=== PATIENT | male | born 1965 | race Caucasian/White ===

== ENCOUNTER 2017-06-24 16:05 | Outpatient (RCR) | payer BC, SELFPAY ==
[2017-06-18 09:55] LABS: International Normalized Ratio 1.9; Prothrombin Time (Protime)PT. 21.1 SECONDS (11.7-14.9)
[2017-06-24 16:29] LABS: International Normalized Ratio 2.3; Prothrombin Time (Protime)PT. 24.6 SECONDS (11.7-14.9)
== END 2017-06-24 16:20 | disposition home or self-care (01) ==
LOC: LAB 16:05
PROVIDERS: Family Provider Family Medicine; PCP Family Medicine; Visit Provider Internal Medicine Cardiovascular Disease
DX: Z79.01 Long term (current) use of anticoagulants (principal); Z95.2 Presence of prosthetic heart valve
CPT/HCPCS: 36415; 85610

== ENCOUNTER 2017-08-10 16:27 | Outpatient (RCR) | payer BC, SELFPAY ==
[2017-07-23 08:16] LABS: Absolute Neutrophil Count 2.6 X10^3/uL (2.0-7.7); Basophil# 0.13 X10^3/uL; Basophil% 2.7 % (0-1); Differential Indicated SCAN CRITERIA MET; Eosinophil# 0.35 X10^3/uL; Eosinophils% 7.2 % (0-5); Hemoglobin 15.6 g/dl (13.0-16.5); Lymphocyte % 18.5 % (19-41); Mean Corp Hgb Conc 32.5 g/gl (32-36); Mean Corpuscular Hgb 26.5 pg (27.0-32.0); Mean Corpuscular Volume 81.5 fL (80-94); Mean Platelet Vol. 10.4 fl (6.2-12.0); Monocyte# 0.85 X10^3/uL; Monocyte% 17.5 % (0-10); Neutrophil # 2.63 X10^3/uL (2.7-7.7); Neutrophil % 53.9 % (47-70); POSITIVE COUNT NO; POSITIVE DIFFERENTIAL NO; POSITIVE MORPHOLOGY YES; Platelet Count 272 K/mm3 (150-450); RBC Distribution Width CV 20.2 % (11.6-14.6); RBC Distribution Width SD 58.2 fl (35.1-43.9); Red Blood Count 5.89 M/mm3 (4.6-6.2); White Blood Count 4.9 K/mm3 (4.4-11.0)
[2017-07-23 08:26] LABS: International Normalized Ratio 3.9; Prothrombin Time (Protime)PT. 36.4 SECONDS (11.7-14.9)
[2017-07-23 08:48] LABS: AST(SGOT) 28 U/L (15-37); Alanine Aminotransfer ALT/SGPT 24 U/L (16-61); Albumin, Serum 3.6 g/dL (3.2-5.0); Alkaline Phosphatase 70 U/L (45-117); Anion Gap 5 (5-15); BUN 11 mg/dL (7-18); BUN/Creat Ratio 8.2 RATIO (10-20); Calcium,Total 8.4 mg/dL (8.5-10.1); Chloride 105 mmol/L (98-107); Cholesterol 98 mg/dL (200); Creatinine, Serum 1.34 mg/dL (0.70-1.30); EST Glomerular Filtration Rate 59 mL/min (>60); Est Glom Filt Rate - Afr Amer 72 mL/min (>60); Globulin 3.7 g/dL (2.2-4.2); Glucose 73 mg/dL (74-106); High Density Lipoprotein 28 mg/dL; Protein, Total 7.3 g/dL (6.4-8.2); Sodium Level 139 mmol/L (136-145); T4 Free Direct 0.77 ng/dL (0.76-1.46); Thyroid Stim Hormone (TSH) 6.73 uIU/mL (0.358-3.74); Triglycerides 70 mg/dL; Very Low Density Lipoprotein 14 mg/dL (5-40)
[2017-07-30 10:42] LABS: Prothrombin Time (Protime)PT. 62.7 SECONDS (11.7-14.9)
[2017-07-30 11:06] LABS: International Normalized Ratio 7.8
[2017-08-05 17:34] LABS: Prothrombin Time (Protime)PT. 40.4 SECONDS (11.7-14.9)
[2017-08-05 18:03] LABS: International Normalized Ratio 4.4
[2017-08-10 17:32] LABS: Prothrombin Time (Protime)PT. 42.2 SECONDS (11.7-14.9)
[2017-08-10 17:41] LABS: International Normalized Ratio 4.4
== END 2017-08-10 17:00 | disposition home or self-care (01) ==
LOC: LAB 16:27
PROVIDERS: Family Provider Family Medicine; PCP Family Medicine; Visit Provider Internal Medicine Cardiovascular Disease
DX: I35.9 Nonrheumatic aortic valve disorder, unspecified (principal); N18.1 Chronic kidney disease, stage 1; E03.9 Hypothyroidism, unspecified; Z95.2 Presence of prosthetic heart valve; Z79.01 Long term (current) use of anticoagulants
CPT/HCPCS: 36415; 85610

== ENCOUNTER 2017-08-29 16:16 | Outpatient (RCR) | payer BC, SELFPAY ==
[2017-08-19 17:00] LABS: Prothrombin Time (Protime)PT. 52.7 SECONDS (11.7-14.9)
[2017-08-19 17:09] LABS: International Normalized Ratio 5.8
[2017-08-22 17:55] LABS: International Normalized Ratio 2.3; Prothrombin Time (Protime)PT. 25.2 SECONDS (11.7-14.9)
[2017-08-29 17:33] LABS: International Normalized Ratio 1.6; Prothrombin Time (Protime)PT. 19.5 SECONDS (11.7-14.9)
== END 2017-08-29 17:00 | disposition home or self-care (01) ==
LOC: LAB 16:16
PROVIDERS: Family Provider Family Medicine; PCP Family Medicine; Visit Provider Internal Medicine Cardiovascular Disease
DX: Z95.2 Presence of prosthetic heart valve (principal); Z79.01 Long term (current) use of anticoagulants
CPT/HCPCS: 36415; 85610

== ENCOUNTER → 2017-10-08 07:49 | Outpatient (CLI) | payer BC, SELFPAY ==
[2017-10-08 09:01] LABS: Prothrombin Time (Protime)PT. 31.1 SECONDS (11.7-14.9)
[2017-10-08 09:25] LABS: T4 Free Direct 0.69 ng/dL (0.76-1.46); Thyroid Stim Hormone (TSH) 4.49 uIU/mL (0.358-3.74)
== END ==
PROVIDERS: Family Provider Family Medicine; PCP Family Medicine; Visit Provider Family Medicine
DX: E03.9 Hypothyroidism, unspecified (principal)
CPT/HCPCS: 36415; 84439; 84443; 85610

== ENCOUNTER 2017-11-29 16:40 | Outpatient (RCR) | payer BC, SELFPAY ==
[2017-11-26 11:16] LABS: International Normalized Ratio 4.1; Prothrombin Time (Protime)PT. 39.8 SECONDS (11.7-14.9)
[2017-11-26 11:40] LABS: T4 Free Direct 0.78 ng/dL (0.76-1.46); Thyroid Stim Hormone (TSH) 3.88 uIU/mL (0.358-3.74)
[2017-11-29 17:15] LABS: Prothrombin Time (Protime)PT. 30.9 SECONDS (11.7-14.9)
== END 2017-11-29 17:00 | disposition home or self-care (01) ==
LOC: LAB 16:40
PROVIDERS: Family Provider Family Medicine; PCP Family Medicine; Visit Provider Internal Medicine Cardiovascular Disease
DX: I35.9 Nonrheumatic aortic valve disorder, unspecified (principal); E03.9 Hypothyroidism, unspecified; Z79.01 Long term (current) use of anticoagulants
CPT/HCPCS: 36415; 84439; 84443; 85610

== ENCOUNTER 2018-02-10 16:37 | Outpatient (RCR) | payer BC, SELFPAY ==
[2018-02-10 17:45] LABS: International Normalized Ratio 3.2; Prothrombin Time (Protime)PT. 32.8 SECONDS (11.7-14.9)
== END 2018-02-10 17:00 | disposition home or self-care (01) ==
LOC: LAB 16:37
PROVIDERS: Family Provider Family Medicine; PCP Family Medicine; Visit Provider Internal Medicine Cardiovascular Disease
DX: Z79.01 Long term (current) use of anticoagulants (principal)
CPT/HCPCS: 36415; 85610

== ENCOUNTER 2018-04-08 08:38 | Outpatient (RCR) | payer BC, SELFPAY ==
[2018-04-08 10:00] LABS: International Normalized Ratio 2.3; Prothrombin Time (Protime)PT. 25.3 SECONDS (11.7-14.9)
== END 2018-04-08 10:00 | disposition home or self-care (01) ==
LOC: LAB 08:38
PROVIDERS: Family Provider Family Medicine; PCP Family Medicine; Visit Provider Internal Medicine Cardiovascular Disease
DX: Z95.4 Presence of other heart-valve replacement (principal)
CPT/HCPCS: 36415; 85610

== ENCOUNTER → 2018-06-24 09:18 | Outpatient (CLI) | payer BC, SELFPAY ==
[2018-06-24 10:54] LABS: Absolute Lymphocyte Count 0.66 X10^3/ul (0.83-4.51); Absolute Neutrophil Count 3.9 X10^3/uL (2.0-7.7); Basophil# 0.02 X10^3/uL; Basophil% 0.3 % (0-1); Eosinophil# 0.31 X10^3/uL; Eosinophils% 5.1 % (0-5); Hematocrit 51.5 % (40-54); Hemoglobin 16.2 g/dl (13.0-16.5); Lymphocyte # 0.66 X10^3/ul (4.0); Lymphocyte % 10.8 % (19-41); Mean Corp Hgb Conc 31.5 g/gl (32-36); Mean Corpuscular Hgb 28.7 pg (27.0-32.0); Mean Corpuscular Volume 91.3 fL (80-94); Mean Platelet Vol. 10.4 fl (6.2-12.0); Monocyte# 1.22 X10^3/uL; Neutrophil # 3.87 X10^3/uL (2.7-7.7); Neutrophil % 63.6 % (47-70); Platelet Count 317 K/mm3 (150-450); RBC Distribution Width CV 19.1 % (11.6-14.6); RBC Distribution Width SD 64.2 fl (35.1-43.9); Red Blood Count 5.64 M/mm3 (4.6-6.2); White Blood Count 6.1 K/mm3 (4.4-11.0)
[2018-06-24 11:00] LABS: POSITIVE COUNT NO; POSITIVE DIFFERENTIAL NO; POSITIVE MORPHOLOGY NO
[2018-06-24 11:05] LABS: International Normalized Ratio 3.9; Prothrombin Time (Protime)PT. 38.6 SECONDS (11.7-14.9)
[2018-06-24 11:11] LABS: Microalbumin:Creatinine Ratio 14.5 mg/g CRE (<30 mg/g CRE)
[2018-06-24 11:28] LABS: AST(SGOT) 35 U/L (15-37); Alanine Aminotransfer ALT/SGPT 35 U/L (16-61); Albumin, Serum 3.5 g/dL (3.2-5.0); Alkaline Phosphatase 48 U/L (45-117); Anion Gap 4 (5-15); BUN 15 mg/dL (7-18); BUN/Creat Ratio 9.3 RATIO (10-20); Bilirubin, Direct 0.32 mg/dL (0.00-0.30); Calcium,Total 8.8 mg/dL (8.5-10.1); Chloride 104 mmol/L (98-107); Cholesterol 87 mg/dL (200); Creatinine, Serum 1.61 mg/dL (0.70-1.30); EST Glomerular Filtration Rate 48 mL/min (>60); Est Glom Filt Rate - Afr Amer 58 mL/min (>60); Globulin 3.6 g/dL (2.2-4.2); Glucose 78 mg/dL (74-106); High Density Lipoprotein 35 mg/dL; Magnesium 2.1 mg/dL (1.6-2.6); Potassium 5.5 mmol/L (3.5-5.1); Protein, Total 7.1 g/dL (6.4-8.2); Sodium Level 139 mmol/L (136-145); Thyroid Stim Hormone (TSH) 4.51 uIU/mL (0.358-3.74); Triglycerides 47 mg/dL; Very Low Density Lipoprotein 9 mg/dL (5-40)
[2018-06-24 13:20] LABS: Vitamin D,25 Hydroxy 29.7 ng/mL (29.95-100.01)
== END ==
PROVIDERS: Family Provider Family Medicine; PCP Family Medicine; Referring Provider Family Medicine; Visit Provider Family Medicine
DX: D75.1 Secondary polycythemia (principal); I35.9 Nonrheumatic aortic valve disorder, unspecified; N18.1 Chronic kidney disease, stage 1; E03.9 Hypothyroidism, unspecified; Z79.01 Long term (current) use of anticoagulants
CPT/HCPCS: 36415; 80053; 80061; 82043; 82248; 82306; 82570; 83735; 84443; 85025; 85610

== ENCOUNTER 2018-07-01 09:34 | Outpatient (RCR) | payer BC, SELFPAY ==
[2018-06-16 17:47] LABS: International Normalized Ratio 2.7; Prothrombin Time (Protime)PT. 29.2 SECONDS (11.7-14.9)
[2018-07-01 10:31] LABS: Prothrombin Time (Protime)PT. 44.5 SECONDS (11.7-14.9)
[2018-07-01 10:41] LABS: International Normalized Ratio 4.7
[2018-07-01 10:42] LABS: Anion Gap 3 (5-15); BUN 16 mg/dL (7-18); BUN/Creat Ratio 9.5 RATIO (10-20); Calcium,Total 8.6 mg/dL (8.5-10.1); Chloride 103 mmol/L (98-107); Creatinine, Serum 1.69 mg/dL (0.70-1.30); EST Glomerular Filtration Rate 45 mL/min (>60); Est Glom Filt Rate - Afr Amer 55 mL/min (>60); Glucose 82 mg/dL (74-106); Potassium 5.5 mmol/L (3.5-5.1); Sodium Level 136 mmol/L (136-145)
== END 2018-07-01 10:34 | disposition home or self-care (01) ==
LOC: LAB 09:34
PROVIDERS: Family Provider Family Medicine; PCP Family Medicine; Referring Provider Internal Medicine Cardiovascular Disease; Visit Provider Internal Medicine Cardiovascular Disease
DX: Z95.2 Presence of prosthetic heart valve (principal); Z79.01 Long term (current) use of anticoagulants
CPT/HCPCS: 36415; 80048; 85610

== ENCOUNTER → 2018-07-12 07:28 | Outpatient (CLI) | payer BC, SELFPAY ==
--- NOTE | 2018-07-12 07:33 | RDU_ITS ---
Reason For Study: CKD 2 Right Renal Artery Left Renal Artery Right renal artery ostium Left renal artery ostium 101.0/29.2 109.0/21.9 RSV/EDV. PSV/EDV. Right renal artery proximal Left renal artery proximal PSV/EDV 97.6/25.5 PSV/EDV. 106.0/36.5 . Right renal artery mid 111.0/41.0 Left renal artery mid 108.0/35.9 PSV/EDV. PSV/EDV . Right renal artery distal 84.9/26.9 Left renal artery distal 87.4/30.6 PSV/EDV. PSV/EDV. Right Renal Parenchyma Left Renal Parenchyma Upper Pole Medula 23.7/9.3 PSV/EDV. Left upper pole medulla 24.4/10.7 Right upper pole medulla EDR .39 . PSV/EDV . Right upper pole medulla R.I. .61 . Left upper pole medulla EDR .44 . Upper Christos Cortx 16.5/5.7 PSV/EDV. Left upper pole medulla R.I. .56 . Right upper pole cortex EDR .35 . UP Cortex 18.6/7.3 PSV/EDV. Right upper pole cortex R.I. .65 . Left upper pole cortex EDR .39 . Right lower Pole medulla 23.5/8.5 Left upper pole cortex R.I. .61 . PSV/EDV . Left lower Pole medulla 23.2/9.8 Right lower pole medulla EDR .36 . PSV/EDV . Right lower pole medulla R.I. .64 . Left lower pole medulla EDR .42 . Lower Pole Cortex 14.8/5.9 PSV/EDV. Left lower pole medulla R.I. .58 . Right lower pole cortex EDR .40 . Lower Pole Cortx 18.6/7.6 PSV/EDV. Right lower pole cortex R.I. .60 . Left lower pole cortex EDR .41 . Right Renal Hilar Left lower pole cortex R.I. .59 . Right Hilar avg 33.9/14.1 PSV/EDV. Left Renal Hilar Right hilar acceleration time 66 LT Hilar avg 33.0/14.4 PSV/EDV . m/sec. Left hilar acceleration time 66 Right Renal Dimensions m/sec. Right kidney size 10.5 cm . Left Renal Dimensions Right cortical dimension 1.5 cm . Left kidney size 10.6 cm . Left cortical dimension 1.5 cm . Aorta Proximal abdominal aorta 1.6 x 1.6 cm . Distal abdominal aorta 1.7 x 1.8 cm . Proximal abdominal aorta peak systolic velocity is 101.0 cm/sec . Distal abdominal aorta peak systolic velocity is 82.1 cm/sec . Interpretation Summary Dimensions of the intra-abdominal aorta appear normal, without evidence of aneurysmal dilatation. Renal artery velocities are bilaterally normal. Acceleration times are normal bilaterally. There is no evidence of hemodynamically significant renal artery stenosis on either side. Renovascular resistance appears to be bilaterally normal . Cortical dimensions are bilaterally normal. Kidneys appear normal in size bilaterally. Ordering Physician: Walter Rodarte Referring Physician: Walter Rodarte Performed By: Jenae Johnson RVT
== END ==
PROVIDERS: Family Provider Family Medicine; PCP Family Medicine; Referring Provider Family Medicine; Visit Provider Family Medicine
DX: N18.2 Chronic kidney disease, stage 2 (mild) (principal)
CPT/HCPCS: 93975

== ENCOUNTER → 2018-07-25 10:58 | Outpatient (CLI) | payer BC, SELFPAY ==
--- NOTE | 2018-07-25 11:01 | ECHOD_ITS ---
Reason For Study: AVR Procedure This was a 2D Doppler, Color Flow transthoracic echocardiogram. Exam performed in department. Left Ventricle Normal LV size. Mild concentric left ventricular hypertrophy. Apical false tendon noted. Left ventricular systolic function is normal. The estimated ejection fraction is 55 %. No evidence for diastolic dysfunction. Apical wall motion abnormality may reflect pacemaker activation. Right Ventricle Normal RV size. ICD or pacer leads identified within the right ventricle. Normal systolic function. Atria Normal left atrium. Normal right atrium. ICD or pacer leads identified within the right atrium. No doppler evidence for ASD. Mitral Valve There is no mitral annular calcification. Normal mitral valve. Mild (1+) mitral valve insufficiency. Tricuspid Valve Normal tricuspid valve. Mild tricuspid valve insufficiency. Right ventricular systolic pressure estimated to be 25 mmHg. Aortic Valve Stable appearing mechanical aortic valve apparatus. Trivial transvalvular insufficiency of the aortic valve. Pulmonic Valve Normal pulmonic valve. Trivial pulmonic valve insufficiency. Great Vessels Aortic root repair. Pericardium/Pleural No pericardial effusion. MMode/2D Measurements & Calculations LVIDd: 5.0 cm IVSd: 1.2 cm LVOT diam: 2.2 cm LVIDs: 3.8 cm LVPWd: 1.4 cm LVOT area: 3.9 cm2 FS: 22.4 % Ao root diam: 3.0 cm LAV(MOD-bp): 64.2 ml LVAd ap4: 49.5 cm2 LAV(MOD-bp) Indexed: 30.5 ml/m2 EDV(MOD-sp4): 194.9 ml LAV(MOD-sp2): 59.0 ml EDV(sp4-el): 200.3 ml LAV(MOD-sp4): 67.8 ml LVAs ap4: 32.8 cm2 ESV(MOD-sp4): 93.7 ml ESV(sp4-el): 95.6 ml EF(MOD-sp4): 51.9 % EF(sp4-el): 52.3 % SV(MOD-sp4): 101.2 ml SV(sp4-el): 104.7 ml LA A4 area: 21.5 cm2 LA dimension(2D): 3.5 cm RA A4 area: 18.0 cm2 Time Measurements MV dec time: 0.20 sec Doppler Measurements & Calculations MV E max reji: 61.2 cm/sec Lat Peak E' Reji: 4.9 cm/sec Med Peak E' Reji: 5.0 cm/sec MV A max reji: 53.8 cm/sec E/E' lat: 12.5 E/E' med: 12.3 MV E/A: 1.1 Ao V2 max: 196.1 cm/sec LV V1 max: 75.0 cm/sec SV(LVOT): 51.2 ml Ao max P.4 mmHg LV V1 max P.3 mmHg Ao V2 mean: 152.8 cm/sec LV V1 mean P.4 mmHg Ao mean P.0 mmHg LV V1 mean: 54.7 cm/sec Ao V2 VTI: 33.7 cm LV V1 VTI: 13.3 cm SADE(I,D): 1.5 cm2 SADE(V,D): 1.5 cm2 PA V2 max: 112.5 cm/sec PI end-d reji: 81.1 cm/sec TR max reji: 232.9 cm/sec TR max P.7 mmHg Interpretation Summary Left ventricular systolic function is normal. The estimated ejection fraction is 55 %. Mild concentric left ventricular hypertrophy. Apical wall motion abnormality may reflect pacemaker activation. Apical false tendon noted. Mild (1+) mitral valve insufficiency. Mild tricuspid valve insufficiency. Stable appearing mechanical aortic valve apparatus. Trivial transvalvular insufficiency of the aortic valve. Trivial pulmonic valve insufficiency. Aortic root repair. The ascending aorta is not well visualized. Right ventricular systolic pressure estimated to be 25 mmHg. No evidence for diastolic dysfunction. ICD or pacer leads identified within the right atrium ICD or pacer leads identified within the right ventricle. Ordering Physician: Lorenzo Abad/Erik Patricia Referring Physician: RONI FREED Performed By: Sulma Jimenez, RDCS, RVT
--- NOTE | 2018-07-25 11:53 | US_ITS ---
STUDY: RENAL ULTRASOUND - COMPLETE REASON FOR EXAM: Male, 53 years old. Microscopic hematuria. History of stones. TECHNIQUE: Ultrasound evaluation of the kidneys was performed with real-time and static huddleston-scale imaging. COMPARISON: None. FINDINGS: RIGHT KIDNEY: Normal location of the right kidney, which is normal in size. The right kidney measures 10.3 x 5.9 x 5.9 cm. There is a normal cortex of the right kidney. The renal cortex measures 1.6 cm. There is no right renal mass or cyst. There are occasional echogenic foci with posterior acoustic shadowing, consistent with nonobstructing calyceal stones. The largest is at the mid pole, measuring 4 x 5 x 3 mm. There is no right hydronephrosis. DISTAL RIGHT URETER: There is non-visualization of the distal right ureter. There is no demonstrated right ureterovesical junction calculus. There is no demonstrated right ureteral jet. LEFT KIDNEY: Normal location of the left kidney, which is normal in size. The left kidney measures 10.8 x 4.7 x 4.9 cm. There is a normal cortex of the left kidney. The renal cortex measures 1.6 cm. There is no left renal mass or cyst. 4 x 5 x 3 mm echogenicity consistent with nonobstructing stone seen at the midpole. There is no left hydronephrosis. DISTAL LEFT URETER: There is non-visualization of the distal left ureter. There is no demonstrated left ureterovesical junction calculus. There is no demonstrated left ureteral jet. BLADDER: The urinary bladder has a volume of 129.5 ml at the time of scanning. There is a normal 1.8 mm wall thickness of the distended urinary bladder. There is no demonstrated mass within the urinary bladder. There are no demonstrated bladder calculi. US/Kidney and Bladder IMPRESSION: Bilateral nonobstructing nephrolithiasis. No hydronephrosis. The urinary bladder is unremarkable. Electronically Signed: Mahesh Li MD at 9:47 EST , Service support ,
[2018-07-25 13:46] LABS: Hematocrit 47.6 % (40-54); Hemoglobin 15.3 g/dl (13.0-16.5); Mean Corp Hgb Conc 32.1 g/gl (32-36); Mean Corpuscular Hgb 28.4 pg (27.0-32.0); Mean Corpuscular Volume 88.5 fL (80-94); Mean Platelet Vol. 10.3 fl (6.2-12.0); Platelet Count 280 K/mm3 (150-450); RBC Distribution Width CV 17.1 % (11.6-14.6); RBC Distribution Width SD 55.3 fl (35.1-43.9); Red Blood Count 5.38 M/mm3 (4.6-6.2); White Blood Count 5.6 K/mm3 (4.4-11.0)
[2018-07-25 13:47] LABS: Scan Indicated on CBC? Y/N NO
[2018-07-25 13:55] LABS: Albumin, Serum 3.8 g/dL (3.2-5.0); BUN 23 mg/dL (7-18); BUN/Creat Ratio 14.3 RATIO (10-20); Chloride 105 mmol/L (98-107); Creatinine, Serum 1.61 mg/dL (0.70-1.30); EST Glomerular Filtration Rate 48 mL/min (>60); Est Glom Filt Rate - Afr Amer 58 mL/min (>60); Glucose 63 mg/dL (74-106); Potassium 4.1 mmol/L (3.5-5.1); Sodium Level 143 mmol/L (136-145)
== END ==
PROVIDERS: Internal Medicine Nephrology; Family Provider Family Medicine; PCP Family Medicine; Referring Provider Nurse Practitioner Family; Visit Provider Nurse Practitioner Family
DX: I42.8 Other cardiomyopathies (principal); N18.4 Chronic kidney disease, stage 4 (severe); D75.1 Secondary polycythemia; Z95.0 Presence of cardiac pacemaker; Z95.4 Presence of other heart-valve replacement; Z98.890 Other specified postprocedural states; Z87.442 Personal history of urinary calculi
CPT/HCPCS: 36415; 76770; 80069; 85027; 93306

== ENCOUNTER → 2018-08-01 15:58 | Outpatient (CLI) | payer BC, SELFPAY ==
--- NOTE | 2018-08-01 16:01 | CT_ITS ---
STUDY: CTA CHEST REASON FOR EXAM: Male, 53 years old. RADIATION DOSAGE (If Supplied By Facility): CTDIvol = ( 16.15 ) mGy, DLP = ( 698.52 ) mGycm TECHNIQUE: The examination was performed with the intravenous administration of Isovue 300 75 IV. Post-processing of the angiographic images was performed, with multiplanar reformation and 3D reconstruction. Individualized dose optimization techniques were used for this CT. COMPARISON: 02/16/2017 FINDINGS: TRACHEA, THYROID, ESOPHAGUS: No tracheomalacia, stricture or wall thickening. Thyroid and esophagus are normal CARDIOVASCULAR SYSTEM: There is a 4.9 cm ascending thoracic aortic aneurysm with an aortic valve repair. The pulmonary trunk and the left and right pulmonary arteries and the lobar and segmental branches all fill tissue any abnormal and persistent filling defects in them. There is therefore no indication of any pulmonary embolism. The heart is within normal limits in size. There are no prosthesis in the areas of the mitral and tricuspid valves. There is no pericardial effusion. MARIAMA AND LYMPH NODES: No hilar masses and no mediastinal, hilar, axillary or supraclavicular adenopathy LUNGS, LOW-ATTENUATION: No traction bronchiectasis, honeycombing, emphysema, lung cysts or cavitations LUNGS, HIGH ATTENUATION: No nodules/masses, ground glass opacities/consolidations or increased interstitial markings LUNGS, MOSAIC/CRAZY PAVING: Not evident PLEURA AND CHEST WALL: No plural effusions, pneumothoraces, rib fractures or any osteolytic/osteoblastic changes . The soft tissue chest wall including the breasts are normal. Median sternotomy wires are in place. UPPER ABDOMEN: Unremarkable . CT/CTA Chest W/WO Contrast IMPRESSION: The pulmonary trunk and the left and right pulmonary arteries are normal with no evidence of pulmonary embolism. A 4.9 cm ascending aortic aneurysm with evidence of an aortic valve repair. No acute findings in the lungs. No prosthetic heart valves are seen No interval change Electronically Signed: Mahesh Mayer MD at 15:52 EST , Service support ,
== END ==
PROVIDERS: Family Provider Family Medicine; PCP Family Medicine; Referring Provider Nurse Practitioner Family; Visit Provider Nurse Practitioner Family
DX: I42.8 Other cardiomyopathies (principal); Z95.0 Presence of cardiac pacemaker; Z95.4 Presence of other heart-valve replacement; Z98.890 Other specified postprocedural states
CPT/HCPCS: 71275; Q9967

== ENCOUNTER → 2018-09-02 15:24 | Outpatient (CLI) | payer BC, SELFPAY ==
[2018-09-02 15:49] LABS: International Normalized Ratio 2.2; Prothrombin Time (Protime)PT. 24.3 SECONDS (11.7-14.9)
[2018-09-02 16:21] LABS: Albumin, Serum 3.6 g/dL (3.2-5.0); BUN 33 mg/dL (7-18); BUN/Creat Ratio 19.1 RATIO (10-20); Calcium,Total 8.5 mg/dL (8.5-10.1); Chloride 108 mmol/L (98-107); Creatinine, Serum 1.73 mg/dL (0.70-1.30); EST Glomerular Filtration Rate 44 mL/min (>60); Est Glom Filt Rate - Afr Amer 53 mL/min (>60); Glucose 106 mg/dL (74-106); Phosphorus 3.4 mg/dL (2.5-4.9); Potassium 4.2 mmol/L (3.5-5.1); Sodium Level 143 mmol/L (136-145)
== END ==
PROVIDERS: Family Provider Family Medicine; PCP Family Medicine; Referring Provider Internal Medicine Nephrology; Visit Provider Internal Medicine Cardiovascular Disease
DX: N18.3 Chronic kidney disease, stage 3 (moderate) (principal); Z95.4 Presence of other heart-valve replacement
CPT/HCPCS: 36415; 80069; 85610

== ENCOUNTER 2018-10-06 15:58 | Outpatient (RCR) | payer BC, SELFPAY ==
[2018-10-06 17:25] LABS: International Normalized Ratio 1.8; Prothrombin Time (Protime)PT. 20.6 SECONDS (11.7-14.9)
== END 2018-10-10 16:00 | disposition home or self-care (01) ==
LOC: LAB 15:58
PROVIDERS: Family Provider Family Medicine; PCP Family Medicine; Referring Provider Internal Medicine Cardiovascular Disease; Visit Provider Internal Medicine Cardiovascular Disease
DX: Z95.2 Presence of prosthetic heart valve (principal); Z79.01 Long term (current) use of anticoagulants
CPT/HCPCS: 36415; 85610

== ENCOUNTER 2018-10-30 16:27 | Outpatient (RCR) | payer BC, SELFPAY ==
[2018-10-30 17:32] LABS: International Normalized Ratio 2.1; Prothrombin Time (Protime)PT. 23.3 SECONDS (11.7-14.9)
[2018-10-30 17:53] LABS: BUN 22 mg/dL (7-18); BUN/Creat Ratio 15.4 RATIO (10-20); Calcium,Total 8.6 mg/dL (8.5-10.1); Chloride 108 mmol/L (98-107); Creatinine, Serum 1.43 mg/dL (0.70-1.30); EST Glomerular Filtration Rate 55 mL/min (>60); Est Glom Filt Rate - Afr Amer 66 mL/min (>60); Glucose 90 mg/dL (74-106); Phosphorus 3.4 mg/dL (2.5-4.9); Potassium 3.9 mmol/L (3.5-5.1); Sodium Level 143 mmol/L (136-145)
== END 2018-10-30 18:00 | disposition home or self-care (01) ==
LOC: LAB 16:27
PROVIDERS: Family Provider Family Medicine; PCP Family Medicine; Referring Provider Internal Medicine Cardiovascular Disease; Visit Provider Internal Medicine Cardiovascular Disease
DX: N18.3 Chronic kidney disease, stage 3 (moderate) (principal)
CPT/HCPCS: 36415; 80069; 85610

== ENCOUNTER → 2018-11-15 | Outpatient (CLI) | payer BC, SELFPAY ==
--- NOTE | 2018-11-15 10:02 | STRESSREP ---
Stress Test Report Date: 11-15-18 Procedure: Pharmacologic stress nuclear imaging study Indications: Conduction system abnormality; status post biventricular pacemaker; status post aortic valve replacement-mechanical; status post aortic root repair; left ventricular systolic dysfunction Consent: Per the patient Procedure: The patient underwent pharmacologic (Regadenoson) evaluation with a peak heart rate of 113 beats per minute (68 %predicted maximal heart rate) and a peak blood pressure of 104/68 mmHg. The baseline ECG demonstrated an electronic ventricular paced rhythm. The peak pharmacologic ECG demonstrated an electronic ventricular paced rhythm. There were no cardiac dysrhythmias pretest, during pharmacologic infusion, or recovery. There was no complaint of chest discomfort during pharmacologic infusion or recovery. The examination was discontinued secondary to completion of protocol. Impression: 1. Pharmacologic (Regadenoson) evaluation 2. Peak pharmacologic ECG with an electronic ventricular paced rhythm. 3. There were no cardiac dysrhythmias pretest, during pharmacologic infusion, or recovery. 4. Nuclear images pending Myocardial perfusion imaging study: Technique: The patient was injected with 14.1 millicuries of technetium 99m Cardiolite and subsequently rest SPECT Cardiolite nuclear imaging was obtained in the horizontal long, vertical long, and short axis views. The patient underwent pharmacologic (Regadenoson) evaluation with a peak heart rate of 113 beats per minute (68 % percent predicted maximal heart rate) and a peak blood pressure of 104/68 mmHg. The patient was injected with 43.9 millicuries of technetium 99m Cardiolite and subsequently stress SPECT Cardiolite nuclear imaging was obtained in the horizontal long, vertical long, and short axis views. A gated Cardiolite study at peak stress was obtained. Interpretation: Rest and stress SPECT Cardiolite nuclear imaging status post realignment, normalization, and attenuation correction demonstrate the appearance of diminished tracer uptake in the apical segments without significant change between rest and stress. There is diminished and systolic thickening and brightening in the aforementioned areas. The gated Cardiolite study demonstrates diminished myocardial thickening and inward wall motion in the aforementioned areas. The reported LVEF is 39 %. Impression: 1. Rest and stress SPECT currently nuclear imaging demonstrate myocardial perfusion changes potentially compatible with the effects of physiologic apical thinning or the underlying electronic ventricular paced rhythm although an area of previous myocardial injury/infarction cannot necessarily be excluded. There are no myocardial perfusion changes considered diagnostic for associated stress-induced myocardial ischemia. 2. The gated Cardiolite study reports an LVEF of 39 %. This note was generated with [employer]ation software. It may contain incorrect words, spelling, and punctuation that were not noted in checking the note before signing.
--- NOTE | 2018-11-15 10:14 | STRESSREP_ITS ---
Stress Test Report Date: 11-15-18 Procedure: Pharmacologic stress nuclear imaging study Indications: Conduction system abnormality; status post biventricular pacemaker; status post aortic valve replacement-mechanical; status post aortic root repair; left ventricular systolic dysfunction Consent: Per the patient Procedure: The patient underwent pharmacologic (Regadenoson) evaluation with a peak heart rate of 113 beats per minute (68 %predicted maximal heart rate) and a peak blood pressure of 104/68 mmHg. The baseline ECG demonstrated an electronic ventricular paced rhythm. The peak pharmacologic ECG demonstrated an electronic ventricular paced rhythm. There were no cardiac dysrhythmias pretest, during pharmacologic infusion, or recovery. There was no complaint of chest discomfort during pharmacologic infusion or recovery. The examination was discontinued secondary to completion of protocol. Impression: 1. Pharmacologic (Regadenoson) evaluation 2. Peak pharmacologic ECG with an electronic ventricular paced rhythm. 3. There were no cardiac dysrhythmias pretest, during pharmacologic infusion, or recovery. 4. Nuclear images pending Myocardial perfusion imaging study: Technique: The patient was injected with 14.1 millicuries of technetium 99m Cardiolite and subsequently rest SPECT Cardiolite nuclear imaging was obtained in the horizontal long, vertical long, and short axis views. The patient underwent pharmacologic (Regadenoson) evaluation with a peak heart rate of 113 beats per minute (68 % percent predicted maximal heart rate) and a peak blood pressure of 104/68 mmHg. The patient was injected with 43.9 millicuries of technetium 99m Cardiolite and subsequently stress SPECT Cardiolite nuclear imaging was obtained in the horizontal long, vertical long, and short axis views. A gated Cardiolite study at peak stress was obtained. Interpretation: Rest and stress SPECT Cardiolite nuclear imaging status post realignment, normalization, and attenuation correction demonstrate the appearance of diminished tracer uptake in the apical segments without significant change between rest and stress. There is diminished and systolic thickening and brightening in the aforementioned areas. The gated Cardiolite study demonstrates diminished myocardial thickening and inward wall motion in the aforementioned areas. The reported LVEF is 39 %. Impression: 1. Rest and stress SPECT currently nuclear imaging demonstrate myocardial perfusion changes potentially compatible with the effects of physiologic apical thinning or the underlying electronic ventricular paced rhythm although an area of previous myocardial injury/infarction cannot necessarily be excluded. There are no myocardial perfusion changes considered diagnostic for associated stress- induced myocardial ischemia. 2. The gated Cardiolite study reports an LVEF of 39 %. This note was generated with [employer] software. It may contain incorrect words, spelling, and punctuation that were not noted in checking the note before signing.
== END | disposition home or self-care (01) ==
LOC: CVS 06:07
PROVIDERS: Family Provider Family Medicine; PCP Family Medicine; Referring Provider Internal Medicine Cardiovascular Disease; Visit Provider Internal Medicine Cardiovascular Disease
DX: I42.9 Cardiomyopathy, unspecified (principal); I47.1 Supraventricular tachycardia; I47.2 Ventricular tachycardia; Z95.0 Presence of cardiac pacemaker
CPT/HCPCS: 78452; 93017; A9500; A4216; J2785

== ENCOUNTER 2019-01-19 16:20 | Outpatient (RCR) | payer BC, SELFPAY ==
[2018-12-29 15:10] VITALS: BMI 29.5
[2019-01-19 17:19] LABS: International Normalized Ratio 3.1; Prothrombin Time (Protime)PT. 32.5 SECONDS (11.7-14.9)
== END 2019-01-19 18:00 | disposition home or self-care (01) ==
LOC: LAB 16:20
PROVIDERS: Family Provider Family Medicine; PCP Family Medicine; Referring Provider Internal Medicine Cardiovascular Disease; Visit Provider Internal Medicine Cardiovascular Disease
DX: I42.8 Other cardiomyopathies (principal); Z95.4 Presence of other heart-valve replacement; Z95.0 Presence of cardiac pacemaker; Z79.01 Long term (current) use of anticoagulants
CPT/HCPCS: 36415; 85610

== ENCOUNTER 2019-04-04 15:23 | Outpatient (RCR) | payer BC, SELFPAY ==
[2018-12-29 15:10] VITALS: BMI 29.5
[2019-04-02 17:22] LABS: International Normalized Ratio 2.3
[2019-04-02 17:40] LABS: Albumin, Serum 3.7 g/dL (3.2-5.0); BUN 23 mg/dL (7-18); BUN/Creat Ratio 12.6 RATIO (10-20); Calcium,Total 8.6 mg/dL (8.5-10.1); Chloride 105 mmol/L (98-107); Creatinine, Serum 1.82 mg/dL (0.70-1.30); EST Glomerular Filtration Rate 41 mL/min (>60); Est Glom Filt Rate - Afr Amer 50 mL/min (>60); Glucose 85 mg/dL (74-106); Potassium 4.2 mmol/L (3.5-5.1); Sodium Level 139 mmol/L (136-145)
[2019-04-04 17:29] LABS: Absolute Lymphocyte Count 0.81 X10^3/uL (0.83-4.51); Absolute Neutrophil Count 3.2 X10^3/uL (2.0-7.7); Basophil# 0.05 X10^3/uL; Eosinophil# 0.33 X10^3/uL; Eosinophils% 6.5 % (0-5); Hematocrit 43.3 % (40-54); Hemoglobin 13.5 g/dL (13.0-16.5); Lymphocyte # 0.81 X10^3/ul (4.0); Mean Corp Hgb Conc 31.2 g/dL (32-36); Mean Corpuscular Hgb 24.6 pg (27.0-32.0); Mean Corpuscular Volume 78.9 fL (80-94); Monocyte# 0.71 X10^3/uL; NRBC Flagged by Analyzer 0 % (0-5); Neutrophil # 3.15 X10^3/uL (2.7-7.7); Neutrophil % 62.1 % (47-70); POSITIVE MORPHOLOGY YES; Platelet Count 327 K/mm3 (150-450); RBC Distribution Width CV 22.9 % (11.6-14.6); Red Blood Count 5.49 M/mm3 (4.6-6.2); White Blood Count 5.1 K/mm3 (4.4-11.0)
[2019-04-04 17:36] LABS: Differential Indicated SCAN CRITERIA MET
[2019-04-04 17:41] LABS: International Normalized Ratio 2.8; Prothrombin Time (Protime)PT. 29.8 SECONDS (11.7-14.9)
[2019-04-04 17:53] LABS: AST(SGOT) 31 U/L (15-37); Alanine Aminotransfer ALT/SGPT 30 U/L (16-61); Albumin, Serum 3.7 g/dL (3.2-5.0); Alkaline Phosphatase 62 U/L (45-117); Anion Gap 5 (5-15); BUN 19 mg/dL (7-18); BUN/Creat Ratio 10.9 RATIO (10-20); Calcium,Total 8.5 mg/dL (8.5-10.1); Chloride 106 mmol/L (98-107); Creatinine, Serum 1.75 mg/dL (0.70-1.30); EST Glomerular Filtration Rate 43 mL/min (>60); Est Glom Filt Rate - Afr Amer 52 mL/min (>60); Globulin 3.7 g/dL (2.2-4.2); Glucose 76 mg/dL (74-106); Potassium 4.1 mmol/L (3.5-5.1); Protein, Total 7.4 g/dL (6.4-8.2); Sodium Level 139 mmol/L (136-145); Thyroid Stim Hormone (TSH) 8.28 uIU/mL (0.358-3.74)
[2019-04-04 17:55] LABS: Anisocytosis 2+; Differential Comment SCANNED; Hypochromasia 2+; Ovalocyte RARE; Polychromasia RARE
== END 2019-04-04 18:00 | disposition home or self-care (01) ==
LOC: LAB 15:23
PROVIDERS: Family Provider Family Medicine; PCP Family Medicine; Referring Provider Internal Medicine Cardiovascular Disease; Visit Provider Internal Medicine Cardiovascular Disease
DX: N18.3 Chronic kidney disease, stage 3 (moderate) (principal); Z95.4 Presence of other heart-valve replacement; Z79.01 Long term (current) use of anticoagulants
CPT/HCPCS: 36415; 80053; 80069; 84443; 85025; 85610

== ENCOUNTER → 2019-04-27 | Outpatient (CLI) | payer BC, SELFPAY ==
[2019-04-27 07:48] VITALS: BMI 29.5
[2019-04-30 16:07] LABS: Endomysial Antibody IgA Negative (Negative)
[2019-04-30 20:14] LABS: Immunoglobulin A 182 mg/dL (90-386); t-Transglutaminase IgA <2 U/mL (0-3)
== END | disposition home or self-care (01) ==
PROVIDERS: Family Provider Family Medicine; PCP Family Medicine; Referring Provider Surgery; Visit Provider Surgery
DX: R10.13 Epigastric pain (principal); R12 Heartburn
CPT/HCPCS: 36415; 82784; 83516; 86255

== ENCOUNTER → 2019-05-03 08:52 | Outpatient (CLI) | payer BC, SELFPAY ==
[2019-04-27 07:48] VITALS: BMI 29.5
--- NOTE | 2019-05-03 09:30 | RAD_ITS ---
PROCEDURE: SMALL BOWEL SERIES DATE OF EXAMINATION: May 03, 2019. INDICATION: Male, 54 years old. Abdominal bloating. PHYSICIAN: Chandana Way M.D. FLUOROSCOPY TIME (if supplied): (0:08) minutes/seconds TECHNIQUE: Radiographic and fluoroscopic images were taken of the small intestine following the ingestion of barium. COMPARISON: None. FINDINGS: A preliminary supine KUB was obtained. There is an unremarkable bowel gas pattern. Fecal material is present throughout the colon. Phleboliths are present within the pelvis. The lung bases are unremarkable. The osseous structures are normal. The patient orally ingested approximately 12 ounces of thin barium Normal visualized fundus, body, and antrum of the stomach. Normal duodenal bulb, C-loop, and proximal jejunum. Normal visualized mucosal folds of the jejunum and ileum. There are no demonstrated dilatations, strictures, or masses of the small intestine. There is no mass displacement of the loops of small intestine. There is a normal motor pattern with barium reaching the colon within approximately 180 minutes. Spot films under fluoroscopic observation demonstrated a normal terminal ileum and ileocecal valve. RAD/Small Bowel Series Only IMPRESSION: Normal small bowel series. Electronically Signed: Chandana Way, at 14:29 EST , Service support ,
== END ==
PROVIDERS: Family Provider Family Medicine; PCP Family Medicine; Referring Provider Surgery; Visit Provider Surgery
DX: R10.13 Epigastric pain (principal)
CPT/HCPCS: 74250

== ENCOUNTER 2019-05-18 16:34 | Outpatient (RCR) | payer BC, SELFPAY ==
[2018-12-29 15:10] VITALS: BMI 29.5
[2019-04-27 07:48] VITALS: BMI 29.5
[2019-05-16 14:28] LABS: International Normalized Ratio 4.5
[2019-05-16 14:35] LABS: Albumin, Serum 3.5 g/dL (3.2-5.0); BUN 15 mg/dL (7-18); BUN/Creat Ratio 8.8 RATIO (10-20); Chloride 105 mmol/L (98-107); Creatinine, Serum 1.71 mg/dL (0.70-1.30); EST Glomerular Filtration Rate 44 mL/min (>60); Est Glom Filt Rate - Afr Amer 54 mL/min (>60); Glucose 72 mg/dL (74-106); Phosphorus 2.6 mg/dL (2.5-4.9); Potassium 4.3 mmol/L (3.5-5.1); Sodium Level 139 mmol/L (136-145)
[2019-05-18 17:30] LABS: International Normalized Ratio 3.8
== END 2019-05-18 18:00 | disposition home or self-care (01) ==
LOC: LAB 16:34
PROVIDERS: Family Provider Family Medicine; PCP Family Medicine; Referring Provider Internal Medicine Cardiovascular Disease; Visit Provider Internal Medicine Cardiovascular Disease
DX: N18.3 Chronic kidney disease, stage 3 (moderate) (principal); Z95.4 Presence of other heart-valve replacement; Z79.01 Long term (current) use of anticoagulants
CPT/HCPCS: 36415; 80069; 85610

== ENCOUNTER 2019-05-21 06:59 | Day surgery (SDC) | payer BC, SELFPAY ==
[2019-04-27 07:48] VITALS: BMI 29.5
--- NOTE | 2019-04-27 07:59 | HP_ITS ---
Intake Vital Signs 04/27/19 Body Mass Index (BMI) 29.5 04/27/19 Height 5 ft 10 in 04/27/19 Weight: 212 lb 04/27/19 Body Mass Index (BMI) 30.4 04/27/19 Blood Pressure 141/85 H 04/27/19 Blood Pressure Location Rt brachial 04/27/19 Blood Pressure Position Sitting 04/27/19 Respiratory Rate 18 04/27/19 Pulse Rate 80 04/27/19 Pulse Source Monitor 04/27/19 Temperature 98.2 F 04/27/19 Temperature Source Oral 04/27/19 Pulse Ox 95 04/27/19 Oxygen Delivery Method room air Intake Visit Reasons: DYSPEPSIA/EGD CONSULT Chief Complaint: direct admit for coumadin to heparin bridge for surgery Slate Picker Required: No Is patient in pain?: No Allergies No Known Allergies Allergy (Verified 04/27/19 07:43) Medications Warfarin [Coumadin] 2 mg PO SUWE 04/16/14 [History Confirmed 04/27/19] warfarin 4 mg tablet 4 mg PO QDAY #90 tab 06/26/18 [Rx Confirmed 04/27/19] levothyroxine 112 mcg capsule 112 mcg PO DAILY 09/06/18 [History Confirmed 04/27/19] metoprolol succinate ER 50 mg tablet,extended release 24 hr 50 mg PO BID #90 tab 09/25/18 [Rx Confirmed 04/27/19] [facility] Medical History Pure hypercholesterolemia (Chronic) Nonsustained ventricular tachycardia (Acute) Wide-complex tachycardia (Acute) Other specified hypotension (Chronic) Abnormal findings on diagnostic imaging of heart and coronary circulation (Chronic) Cardiomyopathy in other diseases classified elsewhere (Chronic) Third degree atrioventricular block determined by electrocardiography (Chronic) 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) Thoracic aortic aneurysm without rupture (Chronic) custodial (current) use of anticoagulants (Acute) Aortic valve disorder (Chronic) Conduction disorder of the heart (Chronic) PSVT (paroxysmal supraventricular tachycardia) (Chronic) Cardiomyopathy (Chronic) Dyspepsia (Acute) Dizziness and giddiness (Acute) Surgical History S/P aortic valve replacement with metallic valve (Chronic) H/O aortic root repair (Chronic) Presence of permanent cardiac pacemaker (Chronic) history ORIFLeft Tib/Fib (Acute) History of cholecystectomy (Resolved) History of tonsillectomy (Resolved) irrigation and debridement tibia (Resolved) Family History Father Hypertension Social History (Updated 04/27/19 @ 08:01 by Vipul Richard MD) Smoking Status: Never smoker alcohol intake: current alcohol intake frequency: holidays/special occasions only caffeine: Yes Type: tea HPI HPI HPI: MATTHEW TRACY, is a 53 M who presents to the office today for HPI HPI Surgical H&P: Yes HPI: MATTHEW TRACY, is a 53 M who presents to the office today for Evaluation for abdominal bloating and heartburn. Patient states that since he has been going back to school he is been sleeping fine but when he starts to eat he immediately gets heartburn and abdominal bloating where it looks as if he is . Usually happens a few hours after he eats it will go back down in texture and size. But as soon as he eats it happens again. He is been trying to identify if this is been dairy related and the only thing that he has difficulty with his ice cream at night. He has been started on simethicone but this is not been effective in alleviating his discomfort and bloating. He has never had an upper scope done. He has had no other test performed at this time. ROS General General: No weight change, appetite, fatigue, colon cancer, breast cancer or weakness HEENT HEENT: No difficulty swallowing, eye injury, eye surgery, swollen glands or hoarseness Endo Endocrine: Yes thyroid disease; no diabetes mellitus, thyroid cancer, Hair loss, heat intolerance or cold intolerance Skin Skin: No rash or changing moles Breast Breast: No left breast lump, right breast lump, nipple discharge, breast pain, abnormal mammogram, abnormal US or breast enlargement Musc Musculoskeletal: Yes arthritis and rheumatoid arthritis; no back problems, gout or joint pain Cardio Cardiovascular: Yes pacemaker and heart disease; no murmur, atrial fibrillation, high blood pressure, heart attack, heart stent, palpitations, shortness of breat with exertion or chest pain Psych Psychiatric: No depression, anxiety or hearing voices Resp Respiratory: No shortness of breath, No sleep apnea, No cough, No COPD, No asthma, No emphysema, No wheezing Gastro Gastrointestinal: No abdominal pain, No nausea or vomiting, No diarrhea, No constipation, No blood in stool, Yes acid reflux, No hemorrhoids, No ulcers, No gallbladder problem, No black,tarry stools Juan Hematologic: Yes blood thinners, No blood disorders, No bleeding, No anemia, No blood clots Neuro Neurologic: No system reviewed and no additional complaints, except as docu, No as per HPI, No abnormal walking, No abnormal hearing, No abnormal movements, No abnormal speech, No behavioral changes, No burning sensations, No confusion, No seizure-like activity, No unsteadiness, No dizziness, No localized weakness, No frequent falls, No headache(s), No lack of coordination, No loss of vision, No memory loss, Yes numbness, No other visual disturbances, No radiating pain, No restless legs, No sensory deficit, No fainting, Yes tingling, No tremor(s), No weakness, No other Exam Const General: no acute distress, well developed, well hydrated Orientation: oriented to person, oriented to place, oriented to time [facility] Head: normocephalic, atraumatic Ears: external ears normal Mouth: moist mucous membranes Eyes Sclera: sclerae normal Pupils: normal by confrontation Neck Neck: no lymphadenopathy noted Neck mass: No Thyroid: thyroid normal, symmetrical Chest Chest palpation & inspection: normal inspection of the chest Breast Palpation: No nipple discharge Resp Effort & Inspection: normal respiratory effort Auscultation: clear to auscultation bilaterally Percussion: percussion normal Cardio Rate: regular rate Rhythm: regular rhythm Heart Sounds: no murmurs GI Palpation: soft, no hepatosplenomegaly, no masses, nontender Rectal Exam: other Other: Rectal exam deferred. Extrem General: normal to inspection, no clubbing, cyanosis or edema Assessment & Plan Problems 1. Dyspepsia R10.13 2. Heartburn R12 Plan I have discussed the above with the patient. I have offered the patient esophagogastroduodenoscopy for evaluation. I have explained the risks/benefits of the procedure and described the procedure. I have discussed the risks with the patient, including but not limited to: infection, bleeding, perforation of the GI tract requiring emergency surgery, inability to complete the procedure, injury to any internal organs, complications of anesthesia, etc. - the patient understands and agrees to proceed. I have answered all the patient's questions to the patient's satisfaction and the patient has no further questions. The patient has been given instructions for the colon cleansing preparation. He will be off of his Coumadin for 4 days.We will not bridge him.Once the procedure is done he will immediately get back on his Coumadin. Once we have completed the EGD we will obtain a gastric emptying study and a small bowel follow-through. In addition he will get blood work for celiac disease. Coding Level of Care Code Off vis,new,level 3 Diagnoses Dyspepsia R10.13 Heartburn R12 04/27/19 0802 <Electronically signed by Vipul palafox MD> Date _ Vipul Richard MD I have re-examined the patient. There are no clinical changes since date of exam.
--- NOTE | 2019-05-21 | IMM_PTH ---
PATIENT: MATTHEW TRACY LOC: [facility] U#:[id number] AGE/SX: 54/M ROOM: RE05/21/[address]: Dr. Vipul Richard MD : 1965 BED: DIS: 05/21/2019 SPEC #: [id number] RECD: 05/21/19 15:26 STATUS: RAFAL REYoshi #: [id number] CODY: 05/21/19 00:[address]: Vipul Richard DEPT: IMMUNOHISTOCHEMISTRY RECD BY: Matilde Durand ENTERED: 05/21/19 15:27 SP TYPE: IMMUNO OTHR DR: Dr. Walter Rodarte MD Tissues: Gastric mucous membrane Procedures: H Pylori (initial) PHYSICIAN & INSTITUTION [place] [id number] SPECIMEN INFORMATION: Tissue Source: B. Antrum biopsy Clinical Info: Abdominal bloating and heartburn Specimen Number: [id number] CPT code: 45909 METHODOLOGY: Deparaffinized sections of prefer/formalin-fixed tissue or PAP/DQ stained slides are incubated with monoclonal/polyclonal antibodies/oligonucleotide probes. Localization is made via biotin free immunoperoxidase method. Appropriate controls are performed and reacted as expected. Results on target cell population are indicated in the following table: RESULTS: ANTIBODY / CLONE RESULT Block B H Pylori (polyclonal) negative These tests were developed and their performance characteristics determined by [facility]. They may not have been cleared or approved by the U.S. Food and Drug Administration. The FDA has determined that such clearance or approval is not necessary. INTERPRETATION: B. Gastric antrum, biopsy: Negative for Helicobacter pylori organisms. AM:sybil 05/22/19
--- NOTE | 2019-05-21 | EGD_PTH ---
PATIENT: MATTHEW TRACY LOC: [facility] U#:[id number] AGE/SX: 54/M ROOM: RE05/21/[address]: Dr. Vipul Richard MD : 1965 BED: DIS: 05/21/2019 SPEC #: [id number] RECD: 05/21/19 13:47 STATUS: RAFAL JASMEET #: [id number] CODY: 05/21/19 00:[address]: Vipul Richard DEPT: SURGICAL PATHOLOGY RECD BY: Hair King ENTERED: 05/21/19 13:47 SP TYPE: EGD BIOPSY TAPAN DR: Dr. Walter Rodarte MD Tissues: A - Duodenum, NOS B - Gastric mucous membrane C - Esophagus, NOS Procedures: Surgery Specimen Level IV HEADER OPERATION: EGD ([facility] [place] PRE-OP DIAGNOSIS: Abdominal bloating and heartburn TISSUE SUBMITTED: A. Duodenum biopsy, B. Antrum biopsy, C. Esophagus biopsy MICROSCOPIC DIAGNOSIS A. Duodenum, biopsy: No pathologic change. B. Gastric antrum, biopsy: Mild chronic gastritis. C. Esophagus, biopsy: Ulceration with associated acute and chronic inflammation and granulation. Negative for fungal organisms. Focal changes of reflux. AM:andie 05/22/19 COMMENT B. The results of immunohistochemistry for Helicobacter pylori will be reported separately ([id number]). GMS stain with matched control supports the above diagnosis. MICROSCOPIC DESCRIPTION Slides are reviewed. GROSS DESCRIPTION A. Received is one container labeled with the patient name and designated duodenum biopsy. The specimen consists of one irregular fragment of light riojas soft tissue that measures 0.5 x 0.4 x 0.1 cm. The specimen is totally submitted in one cassette. B. Received is one container labeled with the patient name and designated antrum biopsy for H. Pylori. The specimen consists of one irregular fragment of light riojas soft tissue that measures 0.7 x 0.1 x 0.1 cm. The specimen is totally submitted in one cassette. C. Received is one container labeled with the patient name and designated esophagus biopsy. The specimen consists of one irregular fragment of light riojas soft tissue that measures 0.6 x 0.2 x 0.1 cm. The specimen is totally submitted in one cassette. KELLEY:andie 05/21/19 TC: 2 CPT: 96637 x3, 48895 x1
[2019-05-21 07:21] VITALS: BP 110/82; PULSE 88; RESP 15; TEMP 36.6; O2SAT 96; BMI 29.7
[2019-05-21 07:21] LABS: Prothrombin Time Fingerstick 23.1 SEC (11.9-14.4)
[2019-05-21] MEDS: Lactated Ringers 1,000 ML 100 ML IV (07:37)
[2019-05-21 08:20] VITALS: BP 110/82; BP 88/47; PULSE 94; RESP 16; TEMP 37.3; O2SAT 94
--- NOTE | 2019-05-21 08:20 | OP.EGD_ITS ---
Patient Name: Jonathon Merlos Procedure Date: 05/21/2019 8:05 AM Date of : 1965 Age: 54 Procedure: Upper GI endoscopy Indications: Dyspepsia, Heartburn Providers: Vipul Richard MD Referring MD: Walter Rodarte Medicines: See the Anesthesia note for documentation of the administered medications Patient Profile: This is a 54 year old male. Refer to note in patient chart for documentation of history and physical. Complications: No immediate complications. Procedure: Pre-Anesthesia Assessment: - Prior to the procedure, a History and Physical was performed, and patient medications and allergies were reviewed. The patient's tolerance of previous anesthesia was also reviewed. The risks and benefits of the procedure and the sedation options and risks were discussed with the patient. All questions were answered, and informed consent was obtained. Prior Anticoagulants: The patient has taken Coumadin (warfarin), last dose was 5 days prior to procedure. ASA Grade Assessment: III - A patient with severe systemic disease. After reviewing the risks and benefits, the patient was deemed in satisfactory condition to undergo the procedure. After obtaining informed consent, the endoscope was passed under direct vision. Throughout the procedure, the patient's blood pressure, pulse, and oxygen saturations were monitored continuously. The gastroscope was introduced through the mouth, and advanced to the second part of duodenum. The upper GI endoscopy was accomplished without difficulty. The patient tolerated the procedure well. Scope In: 8:09:42 AM Scope Out: 8:12:37 AM Total Procedure Duration Time 0 hours 2 minutes 55 seconds Findings: LA Grade A (one or more mucosal breaks less than 5 mm, not extending between tops of 2 mucosal folds) esophagitis with no bleeding was found 40 cm from the incisors. Biopsies were taken with a cold forceps for histology. Localized mild inflammation characterized by erythema was found in the prepyloric region of the stomach. Biopsies were taken with a cold forceps for Helicobacter pylori testing. A small amount of food (residue) was found on the greater curvature of the stomach. No biopsies or other specimens were collected for this exam. The examined duodenum was normal. Biopsies were taken with a cold forceps for histology. Impression: - LA Grade A reflux esophagitis. Biopsied. - Gastritis. Biopsied. - A small amount of food (residue) in the stomach. No specimens collected. - Normal examined duodenum. Biopsied. Recommendation: - Await pathology results. - Repeat upper endoscopy (date not yet determined) for surveillance. - Return to physician hospital medical assistant in 1 week. - Resume Coumadin (warfarin) at prior dose tomorrow. Procedure Code(s): --- Professional --- 78091, Esophagogastroduodenoscopy, flexible, transoral; with biopsy, single or multiple Diagnosis Code(s): --- Professional --- K21.0, Gastro-esophageal reflux disease with esophagitis K29.70, Gastritis, unspecified, without bleeding R10.13, Epigastric pain R12, Heartburn CPT copyright 2017 [employer]. All rights reserved. The codes documented in this report are preliminary and upon local company flatbed truck driver review may be revised to meet current compliance requirements. MD Vipul Webb MD 05/21/2019 8:19:33 AM This report has been signed electronically. Number of Addenda: 0 Note Initiated On: 05/21/2019 8:05 AM
[2019-05-21 08:25] VITALS: BP 110/82; BP 84/48; PULSE 92; RESP 16; O2SAT 95
[2019-05-21 08:30] VITALS: BP 110/82; BP 96/59; PULSE 87; RESP 16; O2SAT 96
[2019-05-21 08:36] VITALS: BP 106/74; BP 110/82; RESP 16; TEMP 37.1; O2SAT 97
[2019-05-21 08:50] VITALS: BP 110/82
== END 2019-05-21 09:00 | disposition home or self-care (01) ==
LOC: EN 06:59 → AC 07:00
PROVIDERS: Family Provider Family Medicine; PCP Family Medicine; Referring Provider Family Medicine; Visit Provider Surgery
PROC: 0DJ08ZZ Inspection of Upper Intestinal Tract, Via Natural or Artificial Opening Endoscopic (ICD-10-PCS; CPT 43235; principal; 2019-05-21 08:10)
DX: K29.50 Unspecified chronic gastritis without bleeding (principal); K22.10 Ulcer of esophagus without bleeding; I10 Essential (primary) hypertension; K21.9 Gastro-esophageal reflux disease without esophagitis; I44.2 Atrioventricular block, complete; I47.2 Ventricular tachycardia; Z95.0 Presence of cardiac pacemaker; Z79.01 Long term (current) use of anticoagulants; Z79.899 Other long term (current) drug therapy
CPT/HCPCS: 43239; 36416; 85610; 88305; 88342; J7120; J2405

== ENCOUNTER 2019-07-07 10:29 | Outpatient (RCR) | payer BC, SELFPAY ==
[2019-07-07 10:46] LABS: Prothrombin Time Fingerstick 28.5 SEC (11.9-14.4)
== END 2019-07-07 18:00 | disposition home or self-care (01) ==
LOC: LAB 10:29
PROVIDERS: Family Provider Family Medicine; PCP Family Medicine; Referring Provider Internal Medicine Cardiovascular Disease; Visit Provider Internal Medicine Cardiovascular Disease
DX: Z95.4 Presence of other heart-valve replacement (principal); Z79.01 Long term (current) use of anticoagulants
CPT/HCPCS: 36416; 85610

== ENCOUNTER 2019-07-14 08:57 | Outpatient (RCR) | payer BC, SELFPAY ==
[2019-07-09 15:52] VITALS: BMI 29.5
[2019-07-14 10:21] LABS: Absolute Lymphocyte Count 0.71 X10^3/uL (0.83-4.51); Absolute Neutrophil Count 3.6 X10^3/uL (2.0-7.7); Basophil# 0.05 X10^3/uL; Basophil% 0.9 % (0-1); Eosinophil# 0.34 X10^3/uL; Eosinophils% 6.1 % (0-5); Hematocrit 48.3 % (40-54); Hemoglobin 14.6 g/dL (13.0-16.5); Lymphocyte # 0.71 X10^3/ul (4.0); Lymphocyte % 12.8 % (19-41); Mean Corp Hgb Conc 30.2 g/dL (32-36); Mean Corpuscular Hgb 22.7 pg (27.0-32.0); Mean Platelet Vol. 9.9 fl (6.2-12.0); Monocyte# 0.81 X10^3/uL; Monocyte% 14.6 % (0-10); NRBC Flagged by Analyzer 0 % (0-5); Neutrophil # 3.62 X10^3/uL (2.7-7.7); Neutrophil % 65.2 % (47-70); POSITIVE MORPHOLOGY YES; Platelet Count 404 K/mm3 (150-450); RBC Distribution Width CV 22.4 % (11.6-14.6); Red Blood Count 6.44 M/mm3 (4.6-6.2); White Blood Count 5.6 K/mm3 (4.4-11.0)
[2019-07-14 10:25] LABS: Differential Indicated SCAN CRITERIA MET
[2019-07-14 10:27] LABS: Prothrombin Time (Protime)PT. 37.7 SECONDS (11.7-14.9)
[2019-07-14 10:36] LABS: International Normalized Ratio 3.8
[2019-07-14 11:04] LABS: ALB/GLOB Ratio 0.8 RATIO (0.9-2.4); AST(SGOT) 26 U/L (15-37); Alanine Aminotransfer ALT/SGPT 22 U/L (16-61); Albumin, Serum 3.5 g/dL (3.2-5.0); Alkaline Phosphatase 56 U/L (45-117); Anion Gap 3 (5-15); BUN 14 mg/dL (7-18); BUN/Creat Ratio 8.9 RATIO (10-20); Bilirubin, Direct 0.24 mg/dL (0.00-0.30); Calcium,Total 9.3 mg/dL (8.5-10.1); Chloride 104 mmol/L (98-107); Cholesterol 111 mg/dL (200); Creatinine, Serum 1.58 mg/dL (0.70-1.30); EST Glomerular Filtration Rate 49 mL/min (>60); Est Glom Filt Rate - Afr Amer 59 mL/min (>60); Ferritin 12 ng/mL (26-388); Globulin 4.2 g/dL (2.2-4.2); Glucose 78 mg/dL (74-106); High Density Lipoprotein 24 mg/dL; Potassium 5.1 mmol/L (3.5-5.1); Protein, Total 7.7 g/dL (6.4-8.2); Sodium Level 135 mmol/L (136-145); T4 Free Direct 0.85 ng/dL (0.76-1.46); Thyroid Stim Hormone (TSH) 5.77 uIU/mL (0.358-3.74); Triglycerides 91 mg/dL; Very Low Density Lipoprotein 18 mg/dL (5-40)
[2019-07-14 11:21] LABS: Anisocytosis 2+; Differential Comment SCANNED; Hypochromasia 1+; Macrocytosis 1+; Microcytosis 1+; Ovalocyte 1+; Poikilocytosis 1+
[2019-07-16 09:42] LABS: Vitamin D,25 Hydroxy 32.6 ng/mL (29.95-100.01)
== END 2019-07-14 18:00 | disposition home or self-care (01) ==
LOC: LAB 08:57
PROVIDERS: Family Provider Family Medicine; PCP Family Medicine; Referring Provider Internal Medicine Cardiovascular Disease; Visit Provider Internal Medicine Cardiovascular Disease
DX: E03.9 Hypothyroidism, unspecified (principal); N18.1 Chronic kidney disease, stage 1; D75.1 Secondary polycythemia; Z95.4 Presence of other heart-valve replacement; Z79.01 Long term (current) use of anticoagulants
CPT/HCPCS: 36415; 80053; 80061; 82248; 82306; 82728; 83735; 84439; 84443; 85025; 85610

== ENCOUNTER 2019-09-28 16:26 | Outpatient (RCR) | payer BC, SELFPAY ==
[2019-07-09 15:52] VITALS: BMI 29.5
[2019-09-28 17:13] LABS: International Normalized Ratio 1.7; Prothrombin Time (Protime)PT. 19.7 SECONDS (11.7-14.9)
[2019-09-28 18:56] LABS: Albumin, Serum 3.6 g/dL (3.2-5.0); BUN 28 mg/dL (7-18); BUN/Creat Ratio 15.6 RATIO (10-20); Calcium,Total 8.7 mg/dL (8.5-10.1); Chloride 107 mmol/L (98-107); EST Glomerular Filtration Rate 42 mL/min (>60); Est Glom Filt Rate - Afr Amer 51 mL/min (>60); Glucose 128 mg/dL (74-106); Phosphorus 3.2 mg/dL (2.5-4.9); Potassium 3.8 mmol/L (3.5-5.1); Sodium Level 140 mmol/L (136-145)
== END 2019-10-11 18:00 | disposition home or self-care (01) ==
LOC: LAB 16:26
PROVIDERS: Internal Medicine Nephrology; Family Provider Family Medicine; PCP Family Medicine; Referring Provider Internal Medicine Cardiovascular Disease; Visit Provider Internal Medicine Cardiovascular Disease
DX: N18.3 Chronic kidney disease, stage 3 (moderate) (principal); Z95.4 Presence of other heart-valve replacement; Z79.01 Long term (current) use of anticoagulants
CPT/HCPCS: 36415; 80069; 85610

== ENCOUNTER 2020-01-05 11:06 | Outpatient (RCR) | payer BC, SELFPAY ==
[2019-07-09 15:52] VITALS: BMI 29.5
[2020-01-05 11:50] LABS: International Normalized Ratio 3.4
== END 2020-01-05 18:00 | disposition home or self-care (01) ==
LOC: LAB 11:06
PROVIDERS: Family Provider Family Medicine; PCP Family Medicine; Referring Provider Internal Medicine Cardiovascular Disease; Visit Provider Internal Medicine Cardiovascular Disease
DX: Z95.4 Presence of other heart-valve replacement (principal); Z79.01 Long term (current) use of anticoagulants
CPT/HCPCS: 36415; 85610

== ENCOUNTER 2020-03-31 15:23 | Outpatient (RCR) | payer BC, SELFPAY ==
[2019-07-09 15:52] VITALS: BMI 29.5
[2020-01-15 15:23] VITALS: BMI 29.9
[2020-03-31 16:27] LABS: International Normalized Ratio 3.4; Prothrombin Time (Protime)PT. 33.7 SECONDS (11.7-14.9)
[2020-03-31 17:37] LABS: Albumin, Serum 3.6 g/dL (3.2-5.0); BUN 11 mg/dL (7-18); BUN/Creat Ratio 6.2 RATIO (10-20); Chloride 103 mmol/L (98-107); Creatinine, Serum 1.78 mg/dL (0.70-1.30); EST Glomerular Filtration Rate 42 mL/min (>60); Est Glom Filt Rate - Afr Amer 51 mL/min (>60); Glucose 83 mg/dL (74-106); Phosphorus 3.5 mg/dL (2.5-4.9); Potassium 4.6 mmol/L (3.5-5.1); Sodium Level 138 mmol/L (136-145)
== END 2020-03-31 18:00 | disposition home or self-care (01) ==
LOC: LAB 15:23
PROVIDERS: Internal Medicine Nephrology; Family Provider Family Medicine; PCP Family Medicine; Referring Provider Internal Medicine Cardiovascular Disease; Visit Provider Internal Medicine Cardiovascular Disease
DX: Z95.4 Presence of other heart-valve replacement (principal); Z79.01 Long term (current) use of anticoagulants
CPT/HCPCS: 36415; 80069; 85610

== ENCOUNTER → 2020-07-26 07:42 | Outpatient (CLI) | payer BC, SELFPAY ==
[2020-01-15 15:23] VITALS: BMI 29.9
[2020-07-26 08:16] LABS: Absolute Lymphocyte Count 0.79 X10^3/uL (0.83-4.51); Absolute Neutrophil Count 1.8 X10^3/uL (2.0-7.7); Basophil# 0.04 X10^3/uL; Basophil% 1.1 % (0-1); Eosinophil# 0.32 X10^3/uL; Eosinophils% 9.1 % (0-5); Hematocrit 46.8 % (40-54); Hemoglobin 15.1 g/dL (13.0-16.5); Lymphocyte # 0.79 X10^3/ul (4.0); Lymphocyte % 22.6 % (19-41); Mean Corp Hgb Conc 32.3 g/dL (32-36); Mean Corpuscular Hgb 27.8 pg (27.0-32.0); Mean Corpuscular Volume 86.2 fL (80-94); Mean Platelet Vol. 10.2 fl (6.2-12.0); Monocyte# 0.59 X10^3/uL; Monocyte% 16.9 % (0-10); NRBC Flagged by Analyzer 0 % (0-5); Neutrophil # 1.75 X10^3/uL (2.7-7.7); POSITIVE MORPHOLOGY YES; Platelet Count 166 K/mm3 (150-450); RBC Distribution Width CV 22.9 % (11.6-14.6); RBC Distribution Width SD 70.9 fl (35.1-43.9); Red Blood Count 5.43 M/mm3 (4.6-6.2); White Blood Count 3.5 K/mm3 (4.4-11.0)
[2020-07-26 08:20] LABS: Differential Indicated SCAN CRITERIA MET
[2020-07-26 08:33] LABS: ALB/GLOB Ratio 0.9 RATIO (0.9-2.4); AST(SGOT) 31 U/L (15-37); Alanine Aminotransfer ALT/SGPT 29 U/L (16-61); Albumin, Serum 3.5 g/dL (3.2-5.0); Alkaline Phosphatase 78 U/L (45-117); Anion Gap 5 (5-15); BUN 24 mg/dL (7-18); BUN/Creat Ratio 15.9 RATIO (10-20); Calcium,Total 8.9 mg/dL (8.5-10.1); Chloride 105 mmol/L (98-107); Cholesterol 113 mg/dL (200); Creatinine, Serum 1.51 mg/dL (0.70-1.30); EST Glomerular Filtration Rate 51 mL/min (>60); Est Glom Filt Rate - Afr Amer 62 mL/min (>60); Globulin 3.8 g/dL (2.2-4.2); Glucose 96 mg/dL (74-106); High Density Lipoprotein 57 mg/dL; Potassium 4.2 mmol/L (3.5-5.1); Protein, Total 7.3 g/dL (6.4-8.2); Sodium Level 140 mmol/L (136-145); T4 Free Direct 1.09 ng/dL (0.76-1.46); Triglycerides 75 mg/dL; Very Low Density Lipoprotein 15 mg/dL (5-40)
[2020-07-26 09:09] LABS: Anisocytosis 2+; Differential Comment SCANNED; Macrocytosis 1+; Microcytosis 1+
== END ==
PROVIDERS: PCP Family Medicine; Referring Provider Family Medicine; Visit Provider Family Medicine
DX: N18.2 Chronic kidney disease, stage 2 (mild) (principal); E03.9 Hypothyroidism, unspecified
CPT/HCPCS: 36415; 80053; 80061; 84439; 85025

== ENCOUNTER 2020-08-09 09:05 | Outpatient (RCR) | payer BC, SELFPAY ==
[2020-01-15 15:23] VITALS: BMI 29.9
[2020-08-09 10:10] LABS: International Normalized Ratio 1.5; Prothrombin Time (Protime)PT. 17.6 SECONDS (11.7-14.9)
== END 2020-08-09 18:00 | disposition home or self-care (01) ==
LOC: LAB 09:05
PROVIDERS: Family Provider Family Medicine; PCP Family Medicine; Referring Provider Internal Medicine Cardiovascular Disease; Visit Provider Internal Medicine Cardiovascular Disease
DX: Z95.4 Presence of other heart-valve replacement (principal); Z79.01 Long term (current) use of anticoagulants; Z12.5 Encounter for screening for malignant neoplasm of prostate
CPT/HCPCS: 36415; 84153; 85610; G0103

== ENCOUNTER 2020-08-15 17:02 | Outpatient (RCR) | payer BC, SELFPAY ==
[2020-01-15 15:23] VITALS: BMI 29.9
[2020-08-15 17:53] LABS: International Normalized Ratio 2.3; Prothrombin Time (Protime)PT. 25.1 SECONDS (11.7-14.9)
== END 2020-08-15 18:00 | disposition home or self-care (01) ==
LOC: LAB 17:02
PROVIDERS: Family Provider Family Medicine; PCP Family Medicine; Referring Provider Internal Medicine Cardiovascular Disease; Visit Provider Internal Medicine Cardiovascular Disease
DX: Z79.01 Long term (current) use of anticoagulants (principal); Z95.4 Presence of other heart-valve replacement
CPT/HCPCS: 36415; 85610

== ENCOUNTER → 2020-10-06 15:24 | Outpatient (CLI) | payer BC, SELFPAY ==
[2020-01-15 15:23] VITALS: BMI 29.9
[2020-10-06 18:25] LABS: Albumin, Serum 3.6 g/dL (3.2-5.0); BUN 15 mg/dL (7-18); BUN/Creat Ratio 8.6 RATIO (10-20); Calcium,Total 9.1 mg/dL (8.5-10.1); Chloride 103 mmol/L (98-107); Creatinine, Serum 1.75 mg/dL (0.70-1.30); EST Glomerular Filtration Rate 43 mL/min (>60); Est Glom Filt Rate - Afr Amer 52 mL/min (>60); Glucose 71 mg/dL (74-106); Phosphorus 2.6 mg/dL (2.5-4.9); Potassium 3.9 mmol/L (3.5-5.1); Sodium Level 139 mmol/L (136-145)
[2020-10-07 10:02] LABS: PTHIN 74.5 pg/mL (18.4-80.1)
== END ==
PROVIDERS: PCP Family Medicine; Visit Provider Internal Medicine Nephrology
DX: N18.32 Chronic kidney disease, stage 3b (principal)
CPT/HCPCS: 36415; 80069; 83970

== ENCOUNTER → 2021-05-04 08:19 | Outpatient (CLI) | payer BC, SELFPAY ==
[2020-01-15 15:23] VITALS: BMI 29.9
[2021-05-04 09:50] LABS: Albumin, Serum 3.5 g/dL (3.2-5.0); BUN 20 mg/dL (7-18); BUN/Creat Ratio 11.2 RATIO (10-20); Calcium,Total 9.2 mg/dL (8.5-10.1); Chloride 103 mmol/L (98-107); Creatinine, Serum 1.78 mg/dL (0.70-1.30); EST Glomerular Filtration Rate 42 mL/min (>60); Est Glom Filt Rate - Afr Amer 51 mL/min (>60); Glucose 60 mg/dL (74-106); Phosphorus 2.8 mg/dL (2.5-4.9); Potassium 4.4 mmol/L (3.5-5.1); Sodium Level 139 mmol/L (136-145)
== END ==
PROVIDERS: PCP Family Medicine; Referring Provider Internal Medicine Nephrology; Visit Provider Internal Medicine Nephrology
DX: N18.32 Chronic kidney disease, stage 3b (principal)
CPT/HCPCS: 36415; 80069

== ENCOUNTER 2021-09-28 16:04 | Outpatient (CLI) | payer BC, SELFPAY ==
[2021-09-28 16:11] LABS: Bacteria 0 SEEN /hpf (None Seen); Mucous, Urine 0 SEEN /hpf (<or=2+); Red Blood Cells-Urine 0 SEEN /hpf (0-5); Squamous Epithelial Cells - UA 0 SEEN /hpf (0-5); White Blood Cells 0 SEEN /hpf (0-5)
[2021-09-28 17:21] LABS: Color, Urine Yellow (Yellow); Glucose, Dipstick Normal (Normal); Hematocrit 47.5 % (40-54); Ketone-Dipstick Negative (Negative); Leukocyte Esterase-Dipstick Negative /ul (Negative); Mean Corp Hgb Conc 33.7 g/dL (32-36); Mean Corpuscular Hgb 30.7 pg (27.0-32.0); Mean Platelet Vol. 10.2 fl (6.2-12.0); Nitrite-Dipstick Negative (Negative); Occult Blood-Urine Negative /ul (Negative); POSITIVE MORPHOLOGY YES; Platelet Count 214 K/mm3 (150-450); Protein-Dipstick Negative (Negative); RBC Distribution Width CV 19.9 % (11.6-14.6); RBC Distribution Width SD 66.4 fl (35.1-43.9); Red Blood Count 5.22 M/mm3 (4.6-6.2); Specific Gravity, Urine 1.015 (1.002-1.030); Urine Bilirubin Dipstick Negative (Negative); Urine Clarity Clear (Clear); Urine Urobilinogen Normal (Normal); White Blood Count 4.9 K/mm3 (4.4-11.0)
[2021-09-28 17:23] LABS: Scan Indicated on CBC? Y/N YES- FLAGS NOTED
[2021-09-28 17:31] LABS: International Normalized Ratio 2.2
[2021-09-28 17:54] LABS: Anion Gap 4 (5-15); BUN 18 mg/dL (7-18); BUN/Creat Ratio 13.5 RATIO (10-20); Calcium,Total 9.3 mg/dL (8.5-10.1); Chloride 108 mmol/L (98-107); Creatinine, Serum 1.33 mg/dL (0.70-1.30); EST Glomerular Filtration Rate 59 mL/min (>60); Est Glom Filt Rate - Afr Amer 71 mL/min (>60); Glucose 143 mg/dL (74-106); Potassium 3.8 mmol/L (3.5-5.1); Sodium Level 140 mmol/L (136-145)
== END 2021-09-28 23:59 | disposition home or self-care (01) ==
PROVIDERS: PCP Family Medicine; Referring Provider Internal Medicine Cardiovascular Disease; Visit Provider Internal Medicine Cardiovascular Disease
DX: I47.2 Ventricular tachycardia (principal); I43 Cardiomyopathy in diseases classified elsewhere; I44.2 Atrioventricular block, complete; Z95.0 Presence of cardiac pacemaker
CPT/HCPCS: 36415; 80048; 81001; 85027; 85610

== ENCOUNTER 2021-10-01 09:28 | Day surgery (SDC) | payer BC, SELFPAY ==
[2021-09-30 08:11] VITALS: BMI 27.8
[2021-10-01 09:45] LABS: INR Fingerstick 2.1
--- NOTE | 2021-10-01 12:16 | OP.PCM_ITS ---
Report of Operation Date of Procedure: 10/01/21 Description of Surgical Findings:: Diagnosis: BiVpacer Device generator replacement for normal battery depletion Preoperative diagnosis is device at end of life for normal battery depletion. Postoperative diagnosis same as above. After informed consent and IV antibiotics the patient was brought to the [place] catheterization laboratory and the skin over the device was prepped and draped in the usual sterile manner. Intermittent boluses of Versed, and fentanyl were used for sedation and analgesia as well as 1% subcutaneous lidocaine. The pt became hypoxic about [address] the procedure and despite bagging oxygenation was delayed and so romazicon was administered and there were o further issues with oxygenation. Pt woke and was alert and breathing on his own An incision was made over the pre-existing device. Using blunt and Bovie dissection the pocket was opened and the device was removed. Careful attention was paid not to injure the pre-existing leads. The leads were removed from the device header and they were interrogated. There is normal lead function. Hemostasis was obtained. The pocket was flushed with antibiotic solution. The sponge and needle count were correct. The new device was brought to the field. The leads were placed in the appropriate position in the header and secured by the set screw. The leads and the device were then placed in the pocket. The pocket was closed with a deep layer of running 2-0 Vicryl, a superficial layer of running 4-0 Vicryl, skin with Steri-Strips which were covered with a rolled 4 x 4 and Tegaderm. Patient left the room with the device programmed to proper parameters and there were no complications. The device is a BiV 3-lead chamber [employer] generator. All lead parameters were tested and found to be functionally normal. Lead and device serial and model numbers are available in the chart documents provided by the device company outbound call center representative procedure summary.
== END 2021-10-01 23:59 | disposition home or self-care (01) ==
PROVIDERS: PCP Family Medicine; Visit Provider Internal Medicine Cardiovascular Disease
DX: Z45.010 Encounter for checking and testing of cardiac pacemaker pulse generator [battery] (principal); I43 Cardiomyopathy in diseases classified elsewhere; I47.1 Supraventricular tachycardia; I44.2 Atrioventricular block, complete; Z79.01 Long term (current) use of anticoagulants; Z79.899 Other long term (current) drug therapy; Z79.51 Long term (current) use of inhaled steroids; Z95.2 Presence of prosthetic heart valve
CPT/HCPCS: 33229; 36416; 85610; 99152; 99153; J7040; J7050

== ENCOUNTER 2021-10-02 09:42 | Emergency (ER) | payer BC, SELFPAY ==
[2021-10-02 09:43] VITALS: BP 134/80; PULSE 69; RESP 16; TEMP 36.2; O2SAT 100; BMI 27.5
--- NOTE | 2021-10-02 09:58 | EDS_ITS ---
HPI History of Present Illness Chief Complaint: Pacer/ICD Detail of Chief Complaint: Bleeding associated with recently placed AICD/pacemaker Informant: patient Onset/Context/Timing Onset: Today Context: Sudden Onset Timing: Continuous Quality: Bleeding from recently placed pacemaker with soft tissue swelling Location: Left infrascapular region Current Severity: Mild Maximum Severity: Moderate Worsened by: Anticoagulant and blunt dissection Relieved by: Nothing Associated Symptoms Associated Symptoms: None Narrative Narrative: Patient is a 56-year-old male who is on Coumadin since he has a prosthetic valve. He states his INR prior to AICD/place maker replacement was 2.1. He has not taken any Coumadin since Tuesday. He did not take Coumadin today. He presents because the left pectoral region inferior to the left scapula is swollen in comparison the right and there is bleeding with saturation of the dressing placed over the incision site. Patient did comment that there was scar tissue and that Dr. Tineo removed this scar tissue. He denies any other symptoms or complaints. He denies bleeding from his gums, hematuria or black/maroon-colored stool. Prior similar symptoms: No Recent Illness/Hospitalization: No PFSH PFSH Medical History Abnormal findings on diagnostic imaging of heart and coronary circulation Aortic valve disorder Cardiomyopathy Cardiomyopathy in other diseases classified elsewhere Conduction disorder of the heart Dizziness and giddiness Dyspepsia group home (current) use of anticoagulants Non compliance with medical treatment Nonsustained ventricular tachycardia Other [facility] ([facility] drug therapy Other specified hypotension PSVT (paroxysmal supraventricular tachycardia) Pure hypercholesterolemia Third degree atrioventricular block determined by electrocardiography Thoracic aortic aneurysm without rupture Wide-complex tachycardia Home Medications [facility] [History Last Taken 05/16/19] warfarin 4 mg tablet 4 mg PO MOWEFRSA #90 tab 01/15/20 [Rx Last Taken Unknown] metoprolol succinate 50 mg tablet,extended release 24 hr 25 mg PO BID #90 tab 09/15/20 [Rx Last Taken Unknown] levothyroxine 125 mcg tablet 125 mcg PO DAILY tab 05/13/21 [History Last Taken Unknown] Allergy/AdvReac Type Severity Reaction Status Date / Time No Known Allergies Allergy Verified 10/02/21 09:46 Family History Father Hypertension Surgical History H/O aortic root repair (~07/31/02) History of cholecystectomy History of mechanical aortic valve replacement (~07/31/02) History of tonsillectomy history ORIFLeft Tib/Fib irrigation and debridement tibia Presence of permanent cardiac pacemaker S/P aortic valve replacement with metallic valve (~07/31/02) Social History (Updated 10/02/21 @ 10:[address] Jorden Alvarado MD) household members: spouse Smoking Status: Never smoker alcohol intake: current alcohol intake frequency: holidays/special occasions only caffeine: Yes Type: tea ROS ROS ED Constitutional Constitutional ED: Denies chills, fever(s), subjective, sweats or weight loss Cardiovascular Cardiovascular: Reports other Details: Swelling of the left pectoral area due to bleeding. ; Denies chest pain, palpitations or racing heartbeat Respiratory/Chest Respiratory/Chest: Denies cough, dyspnea or dyspnea on exertion Hematologic/Lymphatic Hematologic/Lymphatic: Denies anemia, easy bleeding or easy bruising EXAM Physical Exam Const Vital Signs: 10/02/21 09:43 10/02/21 10:12 Temperature 97.1 F L Temperature Source Temporal Pulse Rate 69 Respiratory Rate 16 Respiratory Effort Normal Respiratory Pattern Normal Blood Pressure 134/80 H Blood Pressure Mean 98 Pulse Ox 100 Oxygen Delivery Method Room Air Positive well nourished and well developed General Appearance ED: well developed and NAD; Negative for cyanotic, diaphoretic or pallor HEENT Reports moist mucous membranes HEENT Narrative: Ears normal. Nares patent. Negative for trauma Eyes PERRL and EOMs intact bilaterally General Eye ED: Negative for pale conjunctiva or scleral icterus Neck no lymphadenopathy, supple and no JVD Chest Wall Negative for inspection of chest normal or palpation of chest normal Chest Narrative: There is fluctuance consistent with subcutaneous bleeding associated with recent placement of AICD/pacemaker. Resp normal respiratory effort and clear to auscultation bilaterally Effort and Inspection: Negative for pain with movement Cardio regular rate, regular rhythm, S1 normal heart sound, S2 normal heart sound and no murmurs Extremity normal to inspection Extremity Narrative: Left radial pulses palpable and 2+. General Extremety ED: Negative for edema or tenderness General Extremity: Negative for edema Neuro oriented x3 and CN's II-XII intact bilaterally Sensorium / Orientation: alert Skin no rashes or lesions noted and skin turgor normal Skin Narrative: Presently there is no bleeding from the incision. Unable to express any blood. General Skin Exam: Negative for jaundice or pallor MDM MDM MDM Narrative Medical decision making narrative: Will obtain CBC to assess H&H and platelet count as well as PT/INR to determine if patient's bleeding is due to elevated INR requiring treatment. Sandbag was removed. There is no bleeding noted at this point. H&H and platelet count are unchanged from prior. INR slightly elevated. Will contact Dr. Patricia his metals sales representative and inform him of patient's presentation and if he has any other suggestions other than rest hold Coumadin and return if there is any significant bleeding. Plan as documented. Repeat PT/INR Tuesday and contact office Lab Data Attestation: I reviewed the patient's lab results. Lab results narrative: The INR yesterday was 2.1. Patient states he is not taking any Coumadin since Tuesday. Labs: Laboratory Results - last 24 hr 10/02/21 10/02/21 10:03 10:03 WBC 7.3 RBC 5.12 Hgb 16.0 Hct 47.1 MCV 92.0 MCH 31.3 MCHC 34.0 RDW Std Deviation 65.1 H RDW Coeff of Rashi 19.1 H Plt Count 217 MPV 9.9 PT 24.7 H INR 2.3 Discharge Plan Triage Chief Complaint: Pacer/ICD ED Provider: Jorden Alvarado Dx/Rx/DC Orders Clinical Impression: Post-op bleeding, Anticoagulant long-term use, Hematoma of surgical wound of skin due to and after surgical procedure Prescriptions: No Action warfarin 4 mg tablet 4 mg PO Qty: 90 RF: 3 levothyroxine 125 mcg tablet 125 mcg PO DAILY RF: 0 warfarin 2 MG tablet 6 mg PO SUTUTH RF: 0 metoprolol succinate 50 mg tablet extended release 24 hr 25 mg PO BID Qty: 90 RF: 3 Primary Care Provider: Walter Rodarte Referrals: Walter Rodarte MD [Primary Care Provider] - Erik Patricia MD [STAFF PHYSICIAN] - As Needed Activity Restrictions/Additional Instructions: Will need PT/INR blood draw on Tuesday. Dr. Patricia's office would like for you to contact the office on Tuesday and let the office staff know how you are doing. If you have any significant bleeding or there is further significant expansion of the swelling over the left pectoral area return to the emergency department You should do nothing but rest for the next 48 hours. Do not resume taking Coumadin until Tuesday. Disposition Disposition: Home, Self Care
[2021-10-02 10:18] LABS: Hematocrit 47.1 % (40-54); Mean Corpuscular Hgb 31.3 pg (27.0-32.0); Mean Platelet Vol. 9.9 fl (6.2-12.0); POSITIVE MORPHOLOGY YES; Platelet Count 217 K/mm3 (150-450); RBC Distribution Width CV 19.1 % (11.6-14.6); RBC Distribution Width SD 65.1 fl (35.1-43.9); Red Blood Count 5.12 M/mm3 (4.6-6.2); White Blood Count 7.3 K/mm3 (4.4-11.0)
[2021-10-02 10:20] LABS: Scan Indicated on CBC? Y/N YES- FLAGS NOTED
[2021-10-02 10:21] LABS: International Normalized Ratio 2.3; Prothrombin Time (Protime)PT. 24.7 SECONDS (11.7-14.9)
--- NOTE | 2021-10-02 10:22 | ED.RN ---
5 LB WEIGHT APPLIED PER DR JAE BOB
== END 2021-10-02 11:48 | disposition home or self-care (01) ==
PROVIDERS: Emergency Provider Emergency Medicine; PCP Family Medicine; Visit Provider Emergency Medicine
DX: I97.621 Postprocedural hematoma of a circulatory system organ or structure following other procedure (principal); I42.9 Cardiomyopathy, unspecified; Z79.01 Long term (current) use of anticoagulants; Z79.899 Other long term (current) drug therapy; Z95.810 Presence of automatic (implantable) cardiac defibrillator
CPT/HCPCS: 85027; 85610; 99283

== ENCOUNTER → 2021-10-29 | Outpatient (CLI) | payer OTHER, BC, SELFPAY ==
--- NOTE | 2021-10-29 10:04 | ECHOD_ITS ---
Reason For Study: AVR Procedure This was a 2D Doppler, Color Flow transthoracic echocardiogram. The exam was of adequate technical quality. Exam performed in department. Left Ventricle Normal LV size. Mild concentric left ventricular hypertrophy. Left ventricular systolic function is lower limits of normal. The estimated ejection fraction is 50 %. Transmitral doppler flow suggestive of impaired relaxation of left ventricle. Apical wall motion abnormality may reflect pacemaker activation. Right Ventricle Normal RV size. ICD or pacer leads identified within the right ventricle. Normal systolic function. Atria The left atrium is mildly enlarged. Normal right atrium. ICD or pacer leads identified within the right atrium. No doppler evidence for ASD. Mitral Valve There is no mitral annular calcification. Normal mitral valve. Trivial mitral valve insufficiency. Tricuspid Valve Normal tricuspid valve. Mild to moderate (1-2+) tricuspid valve insufficiency. Right ventricular systolic pressure estimated to be 21 mmHg. Aortic Valve Stable appearing mechanical aortic valve apparatus. Trivial transvalvular insufficiency of the aortic valve. Pulmonic Valve The pulmonic valve is not well visualized. Trivial pulmonic valve insufficiency. Great Vessels Aortic root repair. Pericardium/Pleural No pericardial effusion. MMode/2D Measurements & Calculations LVIDd: 5.0 cm IVSd: 1.4 cm LVOT diam: 2.2 cm LVIDs: 4.7 cm LVPWd: 1.5 cm LVOT area: 3.8 cm2 RVDd: 4.2 cm FS: 7.2 % Ao root diam: 3.4 cm LAV(MOD-bp): 51.4 ml LVAd ap4: 49.0 cm2 LAV(MOD-bp) Indexed: 24.6 ml/m2 LVLd ap4: 9.7 cm LAV(MOD-sp2): 29.6 ml EDV(MOD-sp4): 214.0 ml LAV(MOD-sp4): 69.6 ml EDV(sp4-el): 209.5 ml LVAs ap4: 37.2 cm2 LVLs ap4: 9.2 cm ESV(MOD-sp4): 125.7 ml ESV(sp4-el): 127.8 ml EF(MOD-sp4): 41.2 % EF(sp4-el): 39.0 % LVAd ap2: 39.2 cm2 SV(MOD-sp4): 88.3 ml SV(MOD-sp2): 43.9 ml LVLd ap2: 9.6 cm EDV(MOD-sp2): 139.4 ml EDV(sp2-el): 136.1 ml LVAs ap2: 31.9 cm2 LVLs ap2: 9.0 cm ESV(MOD-sp2): 95.6 ml ESV(sp2-el): 96.5 ml EF(MOD-sp2): 31.5 % SV(sp4-el): 81.7 ml LA dimension(2D): 4.5 cm LA A4 area: 21.1 cm2 RA A4 area: 15.6 cm2 Doppler Measurements & Calculations MV E max reji: 62.5 cm/sec Lat Peak E' Reji: 5.0 cm/sec Med Peak E' Reji: 5.0 cm/sec MV A max reji: 92.5 cm/sec E/E' lat: 12.4 E/E' med: 12.4 MV E/A: 0.68 Ao V2 max: 201.1 cm/sec LV V1 max: 156.3 cm/sec SV(LVOT): 103.7 ml Ao max P.2 mmHg LV V1 max P.8 mmHg Ao V2 mean: 147.2 cm/sec LV V1 mean P.3 mmHg Ao mean P.5 mmHg LV V1 mean: 109.5 cm/sec Ao V2 VTI: 35.4 cm LV V1 VTI: 27.2 cm SADE(I,D): 2.9 cm2 SADE(V,D): 3.0 cm2 PA V2 max: 104.8 cm/sec TR max reji: 214.3 cm/sec TR max P.4 mmHg ECHO/Echo Complete Interpretation Summary Left ventricular systolic function is lower limits of normal. The estimated ejection fraction is 50 %. Apical wall motion abnormality may reflect pacemaker activation. Mild concentric left ventricular hypertrophy. The left atrium is mildly enlarged. Trivial mitral valve insufficiency. Mild to moderate (1-2+) tricuspid valve insufficiency. Stable appearing mechanical aortic valve apparatus. Trivial transvalvular insufficiency of the aortic valve. Trivial pulmonic valve insufficiency. Aortic root repair. Right ventricular systolic pressure estimated to be 21 mmHg. Transmitral doppler flow suggestive of impaired relaxation of left ventricle ICD or pacer leads identified within the right atrium ICD or pacer leads identified within the right ventricle. Ordering Physician: Lorenzo Abad/Erik Patricia Referring Physician: Walter Rodarte MD Performed By: Joy Jones RDCS
== END | disposition home or self-care (01) ==
LOC: CVS 10:00
PROVIDERS: PCP Family Medicine; Referring Provider Nurse Practitioner Family; Visit Provider Nurse Practitioner Family
DX: I47.2 Ventricular tachycardia (principal); I43 Cardiomyopathy in diseases classified elsewhere; I47.1 Supraventricular tachycardia; Z95.2 Presence of prosthetic heart valve; Z79.01 Long term (current) use of anticoagulants; Z98.890 Other specified postprocedural states; Z95.0 Presence of cardiac pacemaker
CPT/HCPCS: 93306

== ENCOUNTER → 2022-01-30 | Outpatient (CLI) | payer BC, SELFPAY ==
[2022-01-30 09:23] LABS: Albumin, Serum 3.7 g/dL (3.2-5.0); BUN 21 mg/dL (7-18); Calcium,Total 8.9 mg/dL (8.5-10.1); Chloride 106 mmol/L (98-107); Cholesterol 111 mg/dL (200); Creatinine, Serum 1.62 mg/dL (0.70-1.30); EST Glomerular Filtration Rate 47 mL/min (>60); Est Glom Filt Rate - Afr Amer 57 mL/min (>60); Glucose 92 mg/dL (74-106); High Density Lipoprotein 47 mg/dL; Phosphorus 2.2 mg/dL (2.5-4.9); Sodium Level 139 mmol/L (136-145); Triglycerides 58 mg/dL; Very Low Density Lipoprotein 12 mg/dL (5-40)
== END | disposition home or self-care (01) ==
PROVIDERS: PCP Family Medicine; Referring Provider Family Medicine; Visit Provider Family Medicine
DX: Z13.220 Encounter for screening for lipoid disorders (principal); Z13.1 Encounter for screening for diabetes mellitus
CPT/HCPCS: 36415; 80061; 80069

== ENCOUNTER → 2022-02-03 | Outpatient (CLI) | payer BC, SELFPAY ==
[2022-02-03 13:36] LABS: T4 Free Direct 0.62 ng/dL (0.76-1.46)
== END | disposition home or self-care (01) ==
LOC: LAB 11:13
PROVIDERS: PCP Family Medicine; Referring Provider Nurse Practitioner Family; Visit Provider Nurse Practitioner Family
DX: E03.9 Hypothyroidism, unspecified (principal)
CPT/HCPCS: 36415; 84439; 84443

== ENCOUNTER → 2023-02-05 | Outpatient (CLI) | payer BC, SELFPAY ==
[2023-02-05 08:07] LABS: Absolute Lymphocyte Count 1.16 X10^3/uL (0.83-4.51); Absolute Neutrophil Count 2.7 X10^3/uL (2.0-7.7); Basophil# 0.06 X10^3/uL; Basophil% 1.2 % (0-1); Eosinophil# 0.29 X10^3/uL; Hematocrit 50.9 % (40-54); Hemoglobin 15.8 g/dL (13.0-16.5); Lymphocyte # 1.16 X10^3/ul (0.83-4.51); Mean Corpuscular Hgb 25.2 pg (27.0-32.0); Mean Corpuscular Volume 81.3 fL (80-94); Monocyte# 0.66 X10^3/uL; Monocyte% 13.6 % (0-10); NRBC Flagged by Analyzer 0 % (0-5); Neutrophil # 2.65 X10^3/uL (2.7-7.7); Neutrophil % 54.8 % (47-70); POSITIVE MORPHOLOGY YES; Platelet Count 259 K/mm3 (150-450); RBC Distribution Width CV 21.3 % (11.6-14.6); RBC Distribution Width SD 59.8 fl (35.1-43.9); RET-HE 27.2 pg (30-35); Red Blood Count 6.26 M/mm3 (4.6-6.2); Reticulocyte Count 1.13 % (0.5-1.5); White Blood Count 4.8 K/mm3 (4.4-11.0)
[2023-02-05 08:15] LABS: Differential Indicated SCAN CRITERIA MET
[2023-02-05 09:01] LABS: ALB/GLOB Ratio 1.1 RATIO (0.9-2.4); AST(SGOT) 33 U/L (15-37); Alanine Aminotransfer ALT/SGPT 31 U/L (16-61); Alkaline Phosphatase 62 U/L (45-117); Anion Gap 7 (5-15); BUN 24 mg/dL (7-18); BUN/Creat Ratio 14.2 RATIO (10-20); Calcium,Total 9.1 mg/dL (8.5-10.1); Chloride 106 mmol/L (98-107); Cholesterol 109 mg/dL (200); Creatinine, Serum 1.69 mg/dL (0.70-1.30); EST Glomerular Filtration Rate 44 mL/min (>60); Est Glom Filt Rate - Afr Amer 54 mL/min (>60); Ferritin 15 ng/mL (26-388); Globulin 3.8 g/dL (2.2-4.2); Glucose 98 mg/dL (74-106); High Density Lipoprotein 37 mg/dL; Phosphorus 2.9 mg/dL (2.5-4.9); Potassium 4.2 mmol/L (3.5-5.1); Protein, Total 7.8 g/dL (6.4-8.2); Sodium Level 142 mmol/L (136-145); Thyroid Stim Hormone (TSH) 5.41 uIU/mL (0.358-3.74); Triglycerides 54 mg/dL; Very Low Density Lipoprotein 11 mg/dL (5-40)
[2023-02-05 10:50] LABS: Anisocytosis 2+; Differential Comment SCANNED; Hypochromasia 1+; Macrocytosis 1+; Microcytosis 1+
[2023-02-07 08:29] LABS: PTHIN 68.4 pg/mL (18.4-80.1)
== END | disposition home or self-care (01) ==
LOC: LAB 07:42
PROVIDERS: PCP Family Medicine; Referring Provider Family Medicine; Visit Provider Family Medicine
DX: D75.1 Secondary polycythemia (principal); E03.9 Hypothyroidism, unspecified; N18.2 Chronic kidney disease, stage 2 (mild); Z13.220 Encounter for screening for lipoid disorders
CPT/HCPCS: 36415; 80053; 80061; 82728; 83970; 84100; 84443; 85025; 85045

== ENCOUNTER → 2023-02-10 | Outpatient (CLI) | payer BC, SELFPAY ==
--- NOTE | 2023-02-10 15:43 | RAD_ITS ---
INDICATION: PAIN PAIN, LIMITED ROM, HX INJURY, HX DRY NEEDLING WITH SOME RELIEF EXAMINATION/TECHNIQUE: X-RAY - RIGHT XR Shoulder Min 2 Views 4 VIEWS COMPARISON: None. FINDINGS: BONES: No acute fracture demonstrated. Deformity of the distal clavicle with widening of the acromioclavicular joint likely related to prior trauma. JOINTS: No dislocation. SOFT TISSUES: Calcifications inferior to the glenoid. RAD/Shoulder min 2 Views IMPRESSION: No evidence of acute fracture. Presumed chronic posttraumatic changes at the distal clavicle/ acromioclavicular joint. Calcifications inferior to the glenoid possible calcific tendinitis. MRI may be helpful for further evaluation if clinically indicated. Electronically Signed: Sulma Mercado MD at 8:04 EDT ,
== END | disposition home or self-care (01) ==
LOC: MTRAD 15:41
PROVIDERS: PCP Family Medicine; Visit Provider Family Medicine
DX: M25.511 Pain in right shoulder (principal)
CPT/HCPCS: 73030

== ENCOUNTER → 2023-03-07 | Outpatient (CLI) | payer BC, SELFPAY ==
[2023-03-07 18:16] LABS: Free T3 2.1 pg/mL (2.18-3.98); PSA,Total - Annual Screen 8.66 ng/mL (0.00-4.00); T4 Free Direct 0.66 ng/dL (0.76-1.46)
== END | disposition home or self-care (01) ==
PROVIDERS: PCP Family Medicine; Referring Provider Family Medicine; Visit Provider Family Medicine
DX: E03.9 Hypothyroidism, unspecified (principal); Z12.5 Encounter for screening for malignant neoplasm of prostate
CPT/HCPCS: 36415; 84153; 84439; 84443; 84481; G0103

== ENCOUNTER → 2023-03-22 | Outpatient (CLI) | payer BC, SELFPAY ==
[2023-03-22 16:02] LABS: PSA,Total- Diagnostic 8.66 ng/mL (0.0-4.0)
== END | disposition home or self-care (01) ==
LOC: LAB 14:52
PROVIDERS: PCP Family Medicine; Referring Provider Nurse Practitioner; Visit Provider Nurse Practitioner
DX: R97.20 Elevated prostate specific antigen [PSA] (principal)
CPT/HCPCS: 36415; 84153

== ENCOUNTER → 2023-05-16 | Outpatient (CLI) | payer BC, SELFPAY ==
--- NOTE | 2023-05-16 08:00 | PROSBIL_PTH ---
PATIENT: MATTHEW TRACY LOC: [facility] U#:[id number] AGE/SX: 58/M ROOM: RE05/16/[address]: Dr. Omer Khanna MD : [id number] BED: DIS: 05/16/2023 SPEC #: [id number] RECD: 05/16/23 15:40 STATUS: RAFAL JASMEET #: [id number] CODY: 05/16/23 08:[address]: Omer Khanna DEPT: SURGICAL PATHOLOGY RECD BY: Maya Lackey ENTERED: 05/17/23 08:33 SP TYPE: PROST BX TAPAN DR: Dr. Walter Rodarte MD Tissues: A - PROSTATE RIGHT B - PROSTATE RIGHT C - PROSTATE RIGHT D - PROSTATE LEFT E - PROSTATE LEFT F - PROSTATE LEFT Procedures: PROSTATE BX HEADER OPERATION: Prostate biopsy PRE-OP DIAGNOSIS: TISSUE SUBMITTED: A - Right apex, B - Right mid, C - Right base, D - Left apex, E - Left mid, F - Left base MICROSCOPIC DIAGNOSIS A. Right prostate, apex, core biopsy: Prostatic tissue, negative for malignancy. B. Right prostate, mid, core biopsy: Prostatic tissue, negative for malignancy. C. Right prostate, base, core biopsy: Prostatic tissue, negative for malignancy. D. Left prostate, apex, core biopsy: Prostatic tissue, negative for malignancy. E. Left prostate, mid, core biopsy: Prostatic tissue, negative for malignancy. F. Left prostate, base, core biopsy: Prostatic tissue, negative for malignancy. SJ:tootie 05/18/2023 MICROSCOPIC DESCRIPTION Slides are reviewed. GROSS DESCRIPTION A - Received is one container designated prostate, right apex. The specimen consists of one elongated fragment of light riojas-white soft tissue each measuring 1.3 cm in length and 0.1 cm in diameter. The specimen is totally submitted in one cassette. B - Received is one container designated prostate, right mid. The specimen consists of two elongated fragments of light riojas-white soft tissue measuring 1.5 and 2.0 cm in length and 0.1 cm in diameter. The specimen is totally submitted in one cassette. C - Received is one container designated prostate, right base. The specimen consists of two elongated fragments of light riojas-white soft tissue each measuring 1.2 cm in length and 0.1 cm in diameter. The specimen is totally submitted in one cassette. D - Received is one container designated prostate, left apex. The specimen consists of one elongated fragment of light riojas-white soft tissue measuring 1.0 cm in length and 0.1 cm in diameter. The specimen is totally submitted in one cassette. E - Received is one container designated prostate, left mid. The specimen consists of two elongated fragments of light riojas-white soft tissue measuring 1.0 and 1.6 cm in length and 0.1 cm in diameter. The specimen is totally submitted in one cassette. F - Received is one container designated prostate, left base. The specimen consists of two elongated fragments of light riojas-white soft tissue each measuring 1.2 cm in length and 0.1 cm in diameter. The specimen is totally submitted in one cassette. / SJ:rg 05/17/2023 TC:5 CPT: 74391 x6
== END | disposition home or self-care (01) ==
LOC: LABSPEC 15:43
PROVIDERS: PCP Family Medicine; Referring Provider Urology; Visit Provider Urology
DX: R97.20 Elevated prostate specific antigen [PSA] (principal)
CPT/HCPCS: 88305; G0416

== ENCOUNTER → 2023-08-27 | Outpatient (CLI) | payer BC, SELFPAY ==
--- OUTSIDE RECORDS SUMMARY | 2023-08-27 09:30 | XMS RPT_ITS | CCD ---
Author Name Unknown Address [address] [place] [address] Organization [facility] Care Team Providers Care Anatomical Embalmer Name Role Phone DANGELO Cabrera, Tammi Estevez Unavailable Roni Carballo Primary Care Provider [phone] Roni Rodarte MD Primary Care Provider RONI RODARTE Primary Care Unavailable LITO LIU Attending RONI Carballo Primary Care Unavailable Medications Current Medications Medication Drug Class(es) Dates Sig (Normalized) Sig (Original) meloxicam 15 mg oral tablet (2 sources) Nonsteroidal Anti-inflammatory Drug Start: 08-17-2022 End: 12-16-2022 take 1 tablet by mouth once daily meloxicam (MOBIC) 15 mg tablet Take 1 tablet by mouth once daily. 30 tablet 2 09/17/2022 12/16/2022 Active Completed/Discontinued Medications Medication Drug Class(es) Dates Sig (Normalized) Sig (Original) aspirin 81 mg oral tablet (3 sources) Nonsteroidal Anti-inflammatory Drug Start: 10-01-2010 take 1 tablet by mouth once daily ASPIRIN 81 MG TABS One tablet by mouth daily ASPIRIN [id number] Sagrario Naranjo Problems Active Problems Problem Classification Problem Date Documented Date Episodic/Chronic Acquired foot deformities (3 sources) Talipes planus; Translations: [Flat foot [pes planus] (acquired), right foot] Onset: 09-17-2022 Episodic Aortic; peripheral; and visceral artery aneurysms (1 source) Thoracic aortic aneurysm, without rupture; Translations: [Thoracic aortic aneurysm, without rupture] Onset: 09-02-2016 09-02-2016 Chronic Cardiac dysrhythmias (2 sources) Atrial paroxysmal tachycardia; Translations: [Paroxysmal tachycardia] Onset: 10-01-2010 10-01-2015 Chronic Conduction disorders (6 sources) Cardiac pacemaker in situ; Translations: [Complete atrioventricular block] Onset: 10-01-2010 10-01-2010 Chronic Disorders of lipid metabolism (1 source) Hyperlipidemia; Translations: [Hyperlipidemia, unspecified] Onset: 10-01-2010 10-01-2010 Chronic Heart valve disorders (6 sources) Presence of prosthetic heart valve; Translations: [Heart valve replaced by other means] Onset: 10-01-2010 Resolved: 06-16-2015 06-16-2015 Chronic Other connective tissue disease (1 source) Tendinitis of left posterior tibial tendon; Translations: [Posterior tibial tendinitis, left leg] Episodic Other connective tissue disease (1 source) Posterior tibial tendinitis, left leg; Translations: [Posterior tibial tendinitis of left leg] Onset: 09-17-2022 Episodic Bella-; endo-; and myocarditis; cardiomyopathy (4 sources) Dilated cardiomyopathy; Translations: [Cardiomyopathy in diseases classified elsewhere] Onset: 10-01-2010 10-01-2010 Chronic Skin and subcutaneous tissue infections (1 source) Cellulitis of other sites; Translations: [Cellulitis of other specified site] Onset: 08-17-2022 Episodic Unclassified (2 sources) Body mass index (BMI) 30.0-30.9, adult; Translations: [Body mass index (BMI) 30.0-30.9, adult] Onset: 03-12-2013 06-09-2015 Chronic Unclassified (1 source) Drug therapy finding; 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] Onset: 09-04-2013 09-26-2015 Past or Other Problems Problem Classification Problem Date Documented Da te Episodic/Chronic Abdominal hernia (2 sources) Incisional hernia; Translations: [Incisional hernia without obstruction or gangrene] Onset: 04-03-2014 04-03-2014 Episodic Acute and unspecified renal failure (2 sources) Acute injury of kidney; Translations: [Acute kidney failure, unspecified] Onset: 04-24-2014 08-23-2020 Episodic Calculus of urinary tract (2 sources) History of calculus of kidney; Translations: [Personal history of urinary calculi] Onset: 04-24-2014 08-23-2020 Episodic Complication of device; implant or graft (6 sources) Malfunction of automatic implantable cardioverter defibrillator; Translations: [Breakdown (mechanical) of cardiac electrode, initial encounter] Onset: 04-23-2014 08-23-2020 Episodic Conditions associated with dizziness or vertigo (1 source) Dizziness and giddiness; Translations: [Dizziness and giddiness] Onset: 10-01-2010 10-01-2010 Episodic Contraceptive and procreative management (2 sources) Patient encounter status; Translations: [Encounter for sterilization] Onset: 05-30-2008 05-30-2008 Episodic Fracture of lower limb (2 sources) Fracture of shaft of tibia ; Translations: [Unspecified fracture of shaft of unspecified tibia, initial encounter for closed fracture] Onset: 04-03-2015 04-03-2015 Episodic Other circulatory disease (1 source) Low blood pressure; Translations: [Other hypotension] Onset: 10-01-2010 10-01-2010 Episodic Unclassified (1 source) Abnormal findings on diagnostic imaging of heart and coronary circulation; Translations: [Abnormal findings on diagnostic imaging of heart and coronary circulation] Onset: 10-01-2010 10-01-2010 Episodic Unclassified (2 sources) Body mass index (BMI) 29.0-29.9, adult; Translations: [FH: Hypertension] Onset: 03-12-2013 11-20-2014 Episodic Unclassified (1 source) Long-term drug therapy; Translations: [Long-term (current) use of other medications] Onset: 09-04-2013 09-04-2013 Results Test Name Value Interpretation Reference Range Facil ity Vital Signs Date Time Vital Sign Value Performing Clinician Radames weinberg 09-17-2022 13:59-0400 Body height 177.8 cm Lito Liu DPM Work Phone: [facility] 09-17-2022 13:59-0400 Body weight 90.27 kg Lito Liu DPM Work Phone: [facility] 09-17-2022 13:59-0400 Respiratory rate 18 /min Lito Liu DPM Work Phone: [facility] 03-07-2017 15:21-0400 BMI (Body Mass Index) 30.85 kg/m2 Tammi Cabrera RN [facility] Work Phone: 03-07-2017 15:21-0400 BP Diastolic 62 mm[Hg] [facility] Work Phone: 03-07-2017 15:21-0400 BP Systolic 116 mm[Hg] [facility]ANGEL[facility] Work Phone: 03-07-2017 15:21-0400 Height 177.8 cm DANGELO [facility] Work Phone: 03-07-2017 15:21-0400 Pulse (Heart Rate) 80 /min [facility] Work Phone: 03-07-2017 15:21-0400 Respiratory Rate 16 /min [facility] Work Phone: 03-07-2017 15:21-0400 Weight 97.52 kg DANGELO [facility] Work Phone: 11-28-2015 15:21-0400 BSA (Body Surface Area) 2.15 m2 DANGELO [facility] Work Phone: Encounters Encounter Date Encounter Type Care Provider Facility Start: 09-17-2022 End: 09-17-2022 ambulatory LITO LIU Facility:[facility] Start: 09-17-2022 End: 09-17-2022 Patient encounter procedure Lito Liu DPM Work Phone: [facility] Procedures Date Procedure Procedure Detail Performing Clinician Start: 03-07-2017 End: 03-07-2017 Follow Up Appt 6 months Erik Patricia MD Start: 03-07-2017 End: 03-07-2017 PFM Erik Patricia MD Start: 02-28-2017 End: 03-07-2017 Ct angiography chest w/contrast/noncontrast Erik Patricia MD Start: 01-19-2017 End: 03-07-2017 Follow Up Appt 3 months Erik Patricia MD Start: 01-19-2017 End: 01-19-2017 Interrogation eval f2f implantable cv mntr sys Erik Patricia MD Start: 01-19-2017 End: 03-07-2017 Pacer Clinic Erik Patricia MD Start: 01-19-2017 End: 01-19-2017 Program eval implantable in prsn multi ld pacer Erik Patricia MD Start: 11-11-2016 End: 01-20-2017 INR in Platelet poor plasma by Coagulation assay Erik Patricia MD Start: 10-20-2016 End: 03-07-2017 Follow Up Appt 3 months rEik Patricia MD Start: 10-20-2016 End: 03-07-2017 Pacer Clinic Erik Patricia MD Start: 10-20-2016 End: 10-20-2016 Program eval implantable in prsn multi ld pacer Erik Patricia MD Start: 09-02-2016 End: 09-06-2016 *BMP Erik Patricia MD Start: 09-02-2016 End: 03-07-2017 Ct angiography chest w/contrast/noncontrast Erik Patricia MD Start: 08-16-2016 End: 09-01-2016 *Hepatic Function Panel Erik Patricia MD Start: 08-16-2016 End: 03-07-2017 Echocardiography Erik Patricia MD Start: 08-16-2016 End: 08-16-2016 Follow Up Appt 6 months Erik Patricia MD Start: 08-16-2016 End: 09-01-2016 Lipid 1996 panel - Serum or Plasma Erik Patricia MD Start: 08-16-2016 End: 03-07-2017 PFM Erik Patricia MD Start: 08-11-2016 End: 09-03-2016 *Hepatic Function Panel Erik Patricia MD Start: 08-11-2016 End: 09-03-2016 Lipid 1996 panel - Serum or Plasma Erik Patricia MD Start: 07-21-2016 End: 03-07-2017 Follow Up Appt 3 months Erik Patriica MD Start: 07-21-2016 End: 03-07-2017 Pacer Clinic Erik Patricia MD Start: 07-21-2016 End: 07-21-2016 Program eval implantable in prsn multi ld pacer Erik Patricia MD Start: 04-14-2016 End: 03-07-2017 Follow Up Appt 3 months Erik Patricia MD Start: 04-14-2016 End: 03-07-2017 Pacer Clinic Erik Patricia MD Start: 04-14-2016 End: 04-15-2016 Program eval implantable in prsn multi ld pacer Erik Patricia MD Start: 01-01-2016 End: 03-07-2017 Follow Up Appt 3 months Erik Patricia MD Start: 01-01-2016 End: 03-07-2017 Pacer Clinic Erik Patricia MD Start: 01-01-2016 End: 01-02-2016 Program eval implantable in prsn multi ld pacer Erik Patricia MD Start: 11-28-2015 End: 03-29-2016 Follow Up Appt 9 months Erik Patricia MD Start: 11-28-2015 End: 03-29-2016 PFM Erik Patricia MD Start: 10-27-2015 End: 10-29-2015 *Hepatic Function Panel Erik Patricia MD Start: 10-27-2015 End: 10-29-2015 Lipid 1996 panel - Serum or Plasma Erik Patricia MD Start: 10-25-2015 End: 10-28-2015 *Hepatic Function Panel Erik Patricia MD Start: 10-25-2015 End: 10-28-2015 Lipid 1996 panel - Serum or Plasma Erik Patricia MD Start: 09-30-2015 End: 03-29-2016 Follow Up Appt 3 months Jeni templeton PA-C Work Phone: Start: 09-30-2015 End: 03-29-2016 Pacer Clinic Jeni Pina PA-C Work Phone: Start: 09-30-2015 End: 10-01-2015 Program eval implantable in prsn multi ld pacer Jeni Pina PA-C Work Phone: Start: 09-27-2015 End: 09-29-2015 INR in Platelet poor plasma by Coagulation assay Erik Patricia MD Start: 06-25-2015 End: 03-29-2016 Follow Up Appt 3 months Erik Patricia MD Start: 06-25-2015 End: 03-29-2016 Pacer Clinic Erik Patricia MD Start: 06-25-2015 End: 06-26-2015 Program eval implantable in prsn multi ld pacer Erik Patricia MD Start: 06-09-2015 End: 06-09-2015 Follow Up Appt 6 months Erik Patricia MD Start: 06-09-2015 End: 06-09-2015 PFM Erik Patricia MD Start: 03-17-2015 End: 06-09-2015 Follow Up Appt 3 months Erik Patricia MD Start: 03-17-2015 End: 06-09-2015 Pacer Clinic Erik Patricia MD Start: 03-17-2015 End: 03-18-2015 Program eval implantable in prsn multi ld pacer Erik Patricia MD Start: 12-02-2014 End: 03-29-2016 Follow Up Appt 3 months Erik Patricia MD Start: 12-02-2014 End: 03-29-2016 Pacer Clinic Erik Patricia MD Start: 12-02-2014 End: 12-03-2014 Program eval implantable in prsn multi ld pacer Erik Patricia MD Start: 11-20-2014 End: 11-21-2014 Documentation of current medications Erik Patricia MD Start: 11-20-2014 End: 11-20-2014 Follow Up Appt 6 months Erik Patricia MD Start: 11-20-2014 End: 11-20-2014 PFM Erik Patricia MD Start: 08-28-2014 End: 03-29-2016 Follow Up Appt 3 months Jeni templeton PA-C Work Phone: Start: 08-28-2014 End: 03-29-2016 Pacer Clinic Jeni Pina PA-C Work Phone: Start: 08-28-2014 End: 08-29-2014 Program eval implantable in prsn multi ld pacer Jeni Pina PA-C Work Phone: Start: 05-29-2014 End: 03-29-2016 Follow Up Appt 3 months Erik Patricia MD Start: 05-29-2014 End: 03-29-2016 Pacer Clinic Erik Patricia MD Start: 05-29-2014 End: 05-29-2014 Program eval implantable in prsn multi ld pacer Erik Patricia MD Start: 05-01-2014 End: 03-29-2016 Follow Up Appt 1 month Erik Patricia MD Start: 05-01-2014 End: 05-01-2014 Nurse, Teaching, Wound Check (no charge) Erik Patricia MD Start: 05-01-2014 End: 03-29-2016 Pacer Clinic Erik Patricia MD Start: 05-01-2014 End: 05-01-2014 Program eval implantable in prsn multi ld pacer Erik Patricia MD Start: 04-25-2014 End: 04-25-2014 Cardiac Referral Erik Patricia MD Start: 04-15-2014 End: 04-15-2014 INR in Platelet poor plasma by Coagulation assay Erik Patricia MD Start: 04-12-2014 End: 04-12-2014 INR in Platelet poor plasma by Coagulation assay Erik Patricia MD Start: 02-11-2014 End: 10-27-2015 *Hepatic Function Panel Erik Patricia MD Start: 02-11-2014 End: 10-27-2015 Lipid 1996 panel - Serum or Plasma Erik Patricia MD Start: 01-29-2014 End: 03-29-2016 Follow Up Appt 3 months Herb Hassan Start: 01-29-2014 End: 03-29-2016 Pacer Clinic Brian Virk MD Start: 01-29-2014 End: 01-29-2014 Program eval implantable in prsn multi ld pacer Brian Virk MD Start: 11-15-2013 End: 12-10-2014 INR in Platelet poor plasma by Coagulation assay Erik Patricia MD Start: 10-24-2013 End: 03-29-2016 Follow Up Appt 3 months Erik Patricia MD Start: 10-24-2013 End: 03-29-2016 Pacer Clinic Erik Patricia MD Start: 10-24-2013 End: 10-24-2013 Program eval implantable in prsn multi ld pacer Erik Patricia MD Start: 09-21-2013 End: 11-15-2013 *Hepatic Function Panel Erik Patricia MD Start: 09-21-2013 End: 09-21-2013 Follow Up Appt 1 year Erik Blanc Start: 09-21-2013 End: 11-15-2013 Lipid 1996 panel - Serum or Plasma Erik Patricia MD Start: 09-21-2013 End: 11-15-2013 PFM Erik Patricia MD Start: 07-25-2013 End: 11-15-2013 Follow Up Appt 3 months Erik Patricia MD Start: 07-25-2013 End: 11-15-2013 Pacer Clinic Erik Patricia MD Start: 07-25-2013 End: 07-25-2013 Program eval implantable in prsn multi ld pacer Erik Patricia MD Start: 04-24-2013 End: 11-15-2013 Follow Up Appt 3 months Erik Patricia MD Start: 04-24-2013 End: 04-24-2013 Interrogation eval f2f implantable cv mntr sys Erik Patricia MD Start: 04-24-2013 End: 11-15-2013 Pacer Clinic Erik Patricia MD Start: 04-24-2013 End: 04-24-2013 Program eval implantable in prsn multi ld pacer Erik Patricia MD Start: 03-12-2013 End: 11-15-2013 *Hepatic Function Panel Erik Patricia MD Start: 03-12-2013 End: 03-30-2013 Echocardiography Erik Patricia MD Start: 03-12-2013 End: 11-15-2013 Follow Up Appt 6 months Erik Patricia MD Start: 03-12-2013 End: 11-15-2013 Lipid 1996 panel - Serum or Plasma Erik Patricia MD Start: 03-12-2013 End: 11-15-2013 PFM Erik Patricia MD Start: 03-07-2013 End: 03-12-2013 *CBC with Differential Edilson Gilbert MD Start: 03-07-2013 End: 11-15-2013 *Hepatic Function Panel Edilson Gilbert MD Start: 03-07-2013 End: 11-15-2013 Echocardiography Edilson Gilbert MD Start: 03-07-2013 End: 11-15-2013 Lipid 1996 panel - Serum or Plasma Edilson Gilbert MD Start: 03-07-2013 End: 03-12-2013 Magnesium [Mass/volume] in Serum or Plasma Edilson Gilbert MD Start: 02-03-2013 End: 11-15-2013 INR in Platelet poor plasma by Coagulation assay Erik Patricia MD Start: 01-19-2013 End: 11-15-2013 Follow Up Appt 3 months Erik Patricia MD Start: 01-19-2013 End: 11-15-2013 Pacer Clinic Erik Patricia MD Start: 01-19-2013 End: 01-19-2013 Program eval implantable in prsn multi ld pacer Erki Patricia MD Start: 11-14-2012 End: 03-12-2013 INR in Platelet poor plasma by Coagulation assay Erik Patricia MD Start: 09-27-2012 End: 11-15-2013 Follow Up Appt 3 months Herb Hassan Start: 09-27-2012 End: 11-15-2013 Pacer Clinic Brian Virk MD Start: 09-27-2012 End: 09-27-2012 Program eval implantable in prsn multi ld pacer Brina Virk MD Start: 08-30-2012 End: 08-30-2012 Follow Up Appt 6 months Edilson Gilbert MD Start: 07-21-2012 End: 08-02-2012 INR in Platelet poor plasma by Coagulation assay Edilson Gilbert MD Start: 07-19-2012 End: 08-02-2012 *BMP Edilson Gilbert MD Start: 07-19-2012 End: 08-02-2012 *CBC with Differential Edilson Gilbert MD Start: 07-19-2012 End: 08-02-2012 *Hepatic Function Panel Edilson Gilbert MD Start: 07-19-2012 End: 08-02-2012 Lipid 1996 panel - Serum or Plasma Edilson Gilbert MD Start: 07-19-2012 End: 08-02-2012 Magnesium [Mass/volume] in Serum or Plasma Edilson Gilbert MD Start: 02-10-2012 End: 03-03-2012 Echocardiography Edilson Gilbert MD Start: 02-10-2012 End: 02-10-2012 Follow Up Appt 6 months Edilson Gilbert MD Start: 01-12-2012 End: 01-13-2012 *Hepatic Function Panel Edilson Gilbert MD Start: 01-12-2012 End: 01-13-2012 Lipid 1996 panel - Serum or Plasma Edilson Gilbert MD Start: 08-10-2011 End: 08-10-2011 Follow Up Appt 6 months Edilson Gilbert MD Start: 05-28-2011 End: 07-12-2011 Ecg routine ecg w/least 12 lds w/i&r Edilson Gilbert MD Start: 05-28-2011 End: 05-28-2011 Follow Up Appt 3 months Edilson Gilbert MD Plan of Treatment Date Care Activity Detail Author Start: 02-11-2023 Influenza vaccination INFLUENZA (Season Ended) [facility] son Start: 06-13-2022 DEPRESSION ASSESSMENT DEPRESSION ASSESSMENT [facility] Start: 09-03-2021 LIPID SCREEN LIPID SCREEN [facility] Start: 02-11-2021 Influenza vaccination INFLUENZA (Season Ended) [facility] son Start: 2019 PROSTATE CANCER SCREENING DISCUSSION PROSTATE CANCER SCREENING DISCUSSION [facility] Start: 01-10-2018 DIABETES SCREEN DIABETES SCREEN [facility] Start: 11-14-2017 End: 11-14-2017 Appointment Appointment [facility] Work Phone: Start: 09-02-2017 End: 09-03-2016 *Hepatic Function Panel *Hepatic Function Panel [facility] Work Phone: Start: 09-02-2017 End: 09-03-2016 Lipid panel [AGGREGATE] *Lipid Profile CC PCP [facility] Work Phone: Start: 04-25-2017 End: 04-25-2017 Appointment Appointment [facility] Phone: Start: 03-07-2017 End: 03-07-2017 Follow Up Appt 6 months Follow Up Appt 6 months [facility] Work Phone: Start: 03-07-2017 End: 03-07-2017 PFM PFM [facility] Work Phone: Start: 02-28-2017 End: 09-07-2016 Ct angiography chest w/contrast/noncontrast CTA Chest, with contrast material(s) [facility] Phone: Start: 01-19-2017 End: 03-07-2017 Follow Up Appt 3 months Follow Up Appt 3 months [facility] Phone: Start: 01-19-2017 End: 03-07-2017 Pacer Clinic Pacer Clinic [facility] Work Phone: Start: 11-11-2016 End: 01-20-2017 INR Coag RelTime (PPP) *PT/INR - Standing Order [facility] Phone: Start: 10-20-2016 End: 03-07-2017 Follow Up Appt 3 months Follow Up Appt 3 months [facility] Phone: Start: 10-20-2016 End: 03-07-2017 Pacer Clinic Pacer Clinic [facility] Work Phone: Start: 09-02-2016 End: 09-06-2016 *BMP *BMP [facility] Work Phone: Start: 09-02-2016 End: 09-02-2016 Ct angiography chest w/contrast/noncontrast CTA Chest, with contrast material(s) [facility] Phone: Start: 08-16-2016 End: 09-01-2016 *Hepatic Function Panel *Hepatic Function Panel [facility] Work Phone: Start: 08-16-2016 End: 08-17-2016 Echocardiography Echocardiogram (complete) [facility] Work Phone: Start: 08-16-2016 End: 08-16-2016 Follow Up Appt 6 months Follow Up Appt 6 months [facility] Work Phone: Start: 08-16-2016 End: 09-01-2016 Lipid panel [AGGREGATE] *Lipid Profile CC PCP [facility] Work Phone: Start: 08-16-2016 End: 03-07-2017 PFM PFM [facility] Work Phone: Start: 08-11-2016 End: 09-03-2016 *Hepatic Function Panel *Hepatic Function Panel [facility] Work Phone: Start: 08-11-2016 End: 09-03-2016 Lipid panel [AGGREGATE] *Lipid Profile CC PCP [facility] Work Phone: Start: 07-21-2016 End: 03-07-2017 Follow Up Appt 3 months Follow Up Appt 3 months [facility] Work Phone: Start: 07-21-2016 End: 03-07-2017 Pacer Clinic Pacer Clinic [facility] Work Phone: Start: 04-14-2016 End: 03-07-2017 Follow Up Appt 3 months Follow Up Appt 3 months [facility] Work Phone: Start: 04-14-2016 End: 03-07-2017 Pacer Clinic Pacer Clinic [facility] Work Phone: Start: 01-01-2016 End: 03-07-2017 Follow Up Appt 3 months Follow Up Appt 3 months [facility] Work Phone: Start: 01-01-2016 End: 03-07-2017 Pacer Clinic Pacer Clinic [facility] Work Phone: Start: 11-28-2015 End: 03-29-2016 Follow Up Appt 9 months Follow Up Appt 9 months [facility] Work Phone: Start: 11-28-2015 End: 03-29-2016 PFM PFM [facility] Work Phone: Start: 10-27-2015 End: 10-29-2015 *Hepatic Function Panel *Hepatic Function Panel [facility] Work Phone: Start: 10-27-2015 End: 10-29-2015 Lipid panel [AGGREGATE] *Lipid Profile CC PCP [facility] Work Phone: Start: 10-25-2015 End: 10-28-2015 *Hepatic Function Panel *Hepatic Function Panel [facility] Work Phone: Start: 10-25-2015 End: 10-28-2015 Lipid panel [AGGREGATE] *Lipid Profile CC PCP [facility] Work Phone: Start: 09-30-2015 End: 03-29-2016 Follow Up Appt 3 months Follow Up Appt 3 months [facility] Work Phone: Start: 09-30-2015 End: 03-29-2016 Pacer Clinic Pacer Clinic [facility] Work Phone: Start: 09-27-2015 End: 09-29-2015 INR Coag RelTime (PPP) *PT/INR [facility] Work Phone: Start: 06-25-2015 End: 03-29-2016 Follow Up Appt 3 months Follow Up Appt 3 months [facility] Work Phone: Start: 06-25-2015 End: 03-29-2016 Pacer Clinic Pacer Clinic [facility] Work Phone: Start: 06-09-2015 End: 06-09-2015 Follow Up Appt 6 months Follow Up Appt 6 months [facility] Work Phone: Start: 06-09-2015 End: 06-09-2015 PFM PFM [facility] Work Phone: Start: 03-17-2015 End: 06-09-2015 Follow Up Appt 3 months Follow Up Appt 3 months [facility] Work Phone: Start: 03-17-2015 End: 06-09-2015 Pacer Clinic Pacer Clinic [facility] Work Phone: Start: 12-02-2014 End: 03-29-2016 Follow Up Appt 3 months Follow Up Appt 3 months [facility] Work Phone: Start: 12-02-2014 End: 03-29-2016 Pacer Clinic Pacer Clinic [facility] Work Phone: Start: 11-20-2014 End: 11-20-2014 Follow Up Appt 6 months Follow Up Appt 6 months [facility] Work Phone: Start: 11-20-2014 End: 11-20-2014 PFM PFM [facility] Work Phone: Start: 08-28-2014 End: 03-29-2016 Follow Up Appt 3 months Follow Up Appt 3 months [facility] Work Phone: Start: 08-28-2014 End: 03-29-2016 Pacer Clinic Pacer Clinic [facility] Work Phone: Start: 05-29-2014 End: 03-29-2016 Follow Up Appt 3 months Follow Up Appt 3 months [facility] Work Phone: Start: 05-29-2014 End: 03-29-2016 Pacer Clinic Pacer Clinic [facility] Work Phone: Start: 05-01-2014 End: 03-29-2016 Follow Up Appt 1 month Follow Up Appt 1 month [facility] Work Phone: Start: 05-01-2014 End: 03-29-2016 Pacer Clinic Pacer Clinic [facility] Work Phone: Start: 2014 Screening for malignant neoplasm of colon [facility] Start: 2014 SHINGRIX VACCINE (1 of 2) SHINGRIX VACCINE (1 of 2) [facility] Start: 04-25-2014 End: 04-25-2014 Cardiac Referral Cardiac Referral [facility] [place], [address], [place], [address] [facility] Work Phone: Start: 04-15-2014 End: 04-15-2014 INR Coag RelTime (PPP) *PT/INR [facility] Work Phone: Start: 04-12-2014 End: 04-12-2014 INR Coag RelTime (PPP) *PT/INR [facility] Work Phone: Start: 02-11-2014 End: 10-27-2015 *Hepatic Function Panel *Hepatic Function Panel [facility] Work Phone: Start: 02-11-2014 End: 10-27-2015 Lipid panel [AGGREGATE] *Lipid Profile CC PCP [facility] Work Phone: Start: 01-29-2014 End: 03-29-2016 Follow Up Appt 3 months Follow Up Appt 3 months [facility] Work Phone: Start: 01-29-2014 End: 03-29-2016 Pacer Clinic Pacer Clinic [facility] Work Phone: Start: 11-15-2013 End: 11-16-2013 INR Coag RelTime (PPP) *PT/INR - Standing Order [facility] Work Phone: Start: 10-24-2013 End: 03-29-2016 Follow Up Appt 3 months Follow Up Appt 3 months [facility] Work Phone: Start: 10-24-2013 End: 03-29-2016 Pacer Clinic Pacer Clinic [facility] Work Phone: Start: 09-21-2013 End: 11-15-2013 *Hepatic Function Panel *Hepatic Function Panel [facility] Work Phone: Start: 09-21-2013 End: 09-21-2013 Follow Up Appt 1 year Follow Up Appt 1 year [facility] Work Phone: Start: 09-21-2013 End: 11-15-2013 Lipid panel [AGGREGATE] *Lipid Profile CC PCP [facility] Work Phone: Start: 09-21-2013 End: 11-15-2013 PFM PFM [facility] Work Phone: Start: 07-25-2013 End: 11-15-2013 Follow Up Appt 3 months Follow Up Appt 3 months [facility] Work Phone: Start: 07-25-2013 End: 11-15-2013 Pacer Clinic Pacer Clinic [facility] Work Phone: Start: 04-24-2013 End: 11-15-2013 Follow Up Appt 3 months Follow Up Appt 3 months [facility] Work Phone: Start: 04-24-2013 End: 11-15-2013 Pacer Clinic Pacer Clinic [facility] Work Phone: Start: 03-12-2013 End: 11-15-2013 *Hepatic Function Panel *Hepatic Function Panel [facility] Work Phone: Start: 03-12-2013 End: 03-13-2013 Echocardiography Echocardiogram (complete) [facility] Work Phone: Start: 03-12-2013 End: 11-15-2013 Follow Up Appt 6 months Follow Up Appt 6 months [facility] Work Phone: Start: 03-12-2013 End: 11-15-2013 Lipid panel [AGGREGATE] *Lipid Profile CC PCP [facility] Work Phone: Start: 03-12-2013 End: 11-15-2013 PFM PFM [facility] Work Phone: Start: 03-07-2013 End: 11-15-2013 *BMP *BMP [facility] Work Phone: Start: 03-07-2013 End: 03-12-2013 *CBC with Differential *CBC with Differential [facility] Work Phone: Start: 03-07-2013 End: 11-15-2013 *Hepatic Function Panel *Hepatic Function Panel [facility] Work Phone: Start: 03-07-2013 End: 11-15-2013 Lipid panel [AGGREGATE] *Lipid Profile [facility] Work Phone: Start: 03-07-2013 End: 03-12-2013 Magnesium *Magnesium [facility] Work Phone: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
[2023-08-27 10:21] LABS: Absolute Lymphocyte Count 0.71 X10^3/uL (0.83-4.51); Absolute Neutrophil Count 3.7 X10^3/uL (2.0-7.7); Basophil# 0.05 X10^3/uL; Basophil% 0.9 % (0-1); Eosinophil# 0.38 X10^3/uL; Hematocrit 46.7 % (40-54); Hemoglobin 15.9 g/dL (13.0-16.5); Lymphocyte # 0.71 X10^3/ul (0.83-4.51); Lymphocyte % 13.1 % (19-41); Mean Corpuscular Volume 96.9 fL (80-94); Mean Platelet Vol. 10.3 fl (6.2-12.0); Monocyte# 0.56 X10^3/uL; Monocyte% 10.3 % (0-10); NRBC Flagged by Analyzer 0 % (0-5); Neutrophil # 3.72 X10^3/uL (2.7-7.7); Neutrophil % 68.5 % (47-70); Platelet Count 171 K/mm3 (150-450); RBC Distribution Width CV 15.9 % (11.6-14.6); RBC Distribution Width SD 56.6 fl (35.1-43.9); Red Blood Count 4.82 M/mm3 (4.6-6.2); White Blood Count 5.4 K/mm3 (4.4-11.0)
[2023-08-27 10:55] LABS: ALB/GLOB Ratio 0.9 RATIO (0.9-2.4); AST(SGOT) 33 U/L (15-37); Alanine Aminotransfer ALT/SGPT 27 U/L (16-61); Albumin, Serum 3.7 g/dL (3.2-5.0); Alkaline Phosphatase 85 U/L (45-117); Anion Gap 3 (5-15); BUN 17 mg/dL (7-18); BUN/Creat Ratio 12.9 RATIO (10-20); Calcium,Total 9.2 mg/dL (8.5-10.1); Chloride 109 mmol/L (98-107); Creatinine, Serum 1.32 mg/dL (0.70-1.30); EST Glomerular Filtration Rate 59 mL/min (>60); Est Glom Filt Rate - Afr Amer 71 mL/min (>60); Globulin 3.9 g/dL (2.2-4.2); Glucose 82 mg/dL (74-106); Magnesium 2.2 mg/dL (1.6-2.6); Potassium 4.3 mmol/L (3.5-5.1); Protein, Total 7.6 g/dL (6.4-8.2); Sodium Level 141 mmol/L (136-145)
[2023-08-27 11:07] LABS: Free T3 1.7 pg/mL (2.18-3.98); T4 Free Direct 0.73 ng/dL (0.76-1.46)
== END | disposition home or self-care (01) ==
LOC: LAB 09:21
PROVIDERS: PCP Family Medicine; Referring Provider Nurse Practitioner Family; Visit Provider Nurse Practitioner Family
DX: E03.9 Hypothyroidism, unspecified (principal); I42.8 Other cardiomyopathies; I47.20 Ventricular tachycardia, unspecified; I47.10 Supraventricular tachycardia, unspecified; Z98.890 Other specified postprocedural states
CPT/HCPCS: 36415; 80053; 83735; 84439; 84443; 84481; 85025

== ENCOUNTER → 2023-11-05 | Outpatient (CLI) | payer BC, SELFPAY ==
[2023-11-05 10:39] LABS: PSA,Total- Diagnostic 6.39 ng/mL (0.0-4.0)
[2023-11-05 10:43] LABS: T4 Free Direct 1.34 ng/dL (0.76-1.46)
== END | disposition home or self-care (01) ==
LOC: LAB 09:49
PROVIDERS: Nurse Practitioner; PCP Family Medicine; Referring Provider Family Medicine; Visit Provider Family Medicine
DX: R97.20 Elevated prostate specific antigen [PSA] (principal); E03.9 Hypothyroidism, unspecified
CPT/HCPCS: 36415; 84153; 84439; 84443

== ENCOUNTER → 2024-02-18 | Outpatient (CLI) | payer BC, SELFPAY ==
[2024-02-18 09:30] LABS: Absolute Lymphocyte Count 1.03 X10^3/uL (0.83-4.51); Absolute Neutrophil Count 2.2 X10^3/uL (2.0-7.7); Basophil# 0.04 X10^3/uL; Basophil% 0.9 % (0-1); Eosinophil# 0.42 X10^3/uL; Eosinophils% 9.8 % (0-5); Hematocrit 45.5 % (40-54); Hemoglobin 15.2 g/dL (13.0-16.5); Lymphocyte # 1.03 X10^3/ul (0.83-4.51); Lymphocyte % 24.1 % (19-41); Mean Corp Hgb Conc 33.4 g/dL (32-36); Mean Corpuscular Hgb 32.1 pg (27.0-32.0); Mean Platelet Vol. 10.3 fl (6.2-12.0); Monocyte# 0.54 X10^3/uL; Monocyte% 12.6 % (0-10); NRBC Flagged by Analyzer 0 % (0-5); Neutrophil # 2.23 X10^3/uL (2.7-7.7); Neutrophil % 52.1 % (47-70); Platelet Count 193 K/mm3 (150-450); RBC Distribution Width CV 14.9 % (11.6-14.6); Red Blood Count 4.74 M/mm3 (4.6-6.2); White Blood Count 4.3 K/mm3 (4.4-11.0)
[2024-02-18 10:40] LABS: Microalbumin,Random Urine 6.2 mg/L (NO RANGE EST.); Microalbumin:Creatinine Ratio 4.9 mg/g CRE (<30 mg/g CRE)
[2024-02-18 11:09] LABS: AST(SGOT) 23 U/L (15-37); Alanine Aminotransfer ALT/SGPT 18 U/L (16-61); Albumin, Serum 3.6 g/dL (3.2-5.0); Alkaline Phosphatase 99 U/L (45-117); Anion Gap 3 (5-15); BUN 21 mg/dL (7-18); BUN/Creat Ratio 17.2 RATIO (10-20); Calcium,Total 9.4 mg/dL (8.5-10.1); Chloride 108 mmol/L (98-107); Cholesterol 140 mg/dL (200); Creatinine, Serum 1.22 mg/dL (0.70-1.30); EST Glomerular Filtration Rate 64 mL/min (>60); Est Glom Filt Rate - Afr Amer 78 mL/min (>60); Globulin 3.7 g/dL (2.2-4.2); Glucose 100 mg/dL (74-106); High Density Lipoprotein 62 mg/dL; Phosphorus 3.1 mg/dL (2.5-4.9); Potassium 4.1 mmol/L (3.5-5.1); Protein, Total 7.3 g/dL (6.4-8.2); Sodium Level 138 mmol/L (136-145); Triglycerides 68 mg/dL; Very Low Density Lipoprotein 14 mg/dL (5-40)
== END | disposition home or self-care (01) ==
PROVIDERS: PCP Family Medicine; Referring Provider Internal Medicine Nephrology; Visit Provider Internal Medicine Nephrology
DX: N18.32 Chronic kidney disease, stage 3b (principal); E78.5 Hyperlipidemia, unspecified; I35.9 Nonrheumatic aortic valve disorder, unspecified
CPT/HCPCS: 36415; 80053; 80061; 82043; 82570; 84100; 85025

== ENCOUNTER → 2024-06-15 | Outpatient (CLI) | payer BC, SELFPAY ==
[2024-06-15 18:11] LABS: Ferritin 27 ng/mL (26-388); Free T3 2.1 pg/mL (2.18-3.98); PSA,Total - Annual Screen 4.78 ng/mL (0.00-4.00); T4 Free Direct 1.04 ng/dL (0.76-1.46)
== END | disposition home or self-care (01) ==
LOC: LAB 16:55
PROVIDERS: PCP Family Medicine; Referring Provider Family Medicine; Visit Provider Family Medicine
DX: E61.1 Iron deficiency (principal); E03.9 Hypothyroidism, unspecified; R97.20 Elevated prostate specific antigen [PSA]
CPT/HCPCS: 36415; 82728; 84153; 84439; 84443; 84481; G0103

== ENCOUNTER → 2024-06-18 | Outpatient (CLI) | payer BC, SELFPAY ==
[2024-06-18 17:27] LABS: PSA,Total- Diagnostic 5.96 ng/mL (0.0-4.0)
== END | disposition home or self-care (01) ==
LOC: LAB 16:13
PROVIDERS: PCP Family Medicine; Referring Provider Urology; Visit Provider Urology
DX: R97.20 Elevated prostate specific antigen [PSA] (principal)
CPT/HCPCS: 36415; 84153

== ENCOUNTER → 2024-09-28 | Outpatient (CLI) | payer BC, SELFPAY ==
--- NOTE | 2024-09-28 07:56 | ECHOCS_ITS ---
Reason For Study Reason For Study: Valve Replacement Procedure This was a 2D Doppler, Color Flow transthoracic echocardiogram. Myocardial strain analysis was performed in this exam to aid in the assessment of cardiac function. Contrast injection was performed. Exam performed in department. Left Ventricle Moderately dilated left ventricle. The global longitudinal strain = -3.2% (abnormal). The left ventricular ejection fraction is 15 %. Stage 1 diastolic dysfunction. There is severe global hypokinesis of the left ventricle. Right Ventricle Normal RV size. ICD or pacer leads identified within the right ventricle. Normal systolic function. Atria Normal left atrium. Normal right atrium. Mitral Valve Normal mitral valve. Tricuspid Valve Normal tricuspid valve. Mild (1+) tricuspid valve insufficiency. Pulmonary artery systolic pressure is 28 mmHg. Aortic Valve Peak aortic valve gradient 12 mmHg. Mean aortic valve gradient 6 mmHg. Bileaflet mechanical aortic valve. Pulmonic Valve Normal pulmonic valve. Great Vessels Normal aortic root. The pulmonary artery is normal size. Normal inferior vena cava. Pericardium/Pleural No pericardial effusion. Medication 22 gauge I.V. with prn adaptor inserted into right arm. Diluted definity 1ml given slow IV push to enhance endocardial definition. MMode/2D Measurements & Calculations LVIDd: 6.3 cm IVSd: 0.95 cm LVOT diam: 2.2 cm LVIDs: 5.7 cm LVPWd: 1.1 cm RVDd: 4.8 cm FS: 8.9 % LVOT area: 3.8 cm2 Ao root diam: 3.8 cm LAV(MOD-bp): 58.9 ml LVAd ap4: 57.3 cm2 LAV(MOD-bp) Indexed: 29.5 ml/m2 LVLd ap4: 9.4 cm LAV(MOD-sp2): 64.9 ml EDV(MOD-sp4): 279.3 ml LAV(MOD-sp4): 53.0 ml EDV(sp4-el): 296.6 ml LVAs ap4: 52.1 cm2 LVLs ap4: 9.1 cm ESV(MOD-sp4): 237.3 ml ESV(sp4-el): 251.7 ml EF(MOD-sp4): 15.0 % EF(sp4-el): 15.2 % LVAd ap2: 56.9 cm2 SV(MOD-sp4): 42.0 ml SV(MOD-sp2): 66.1 ml LVLd ap2: 9.9 cm SI(MOD-sp4): 21.0 ml/m2 SI(MOD-sp2): 33.1 ml/m2 EDV(MOD-sp2): 267.4 ml EDV(sp2-el): 277.6 ml LVAs ap2: 48.1 cm2 LVLs ap2: 9.3 cm ESV(MOD-sp2): 201.3 ml ESV(sp2-el): 210.8 ml EF(MOD-sp2): 24.7 % SV(sp4-el): 44.9 ml LA dimension(2D): 4.7 cm LA A4 area: 18.2 cm2 RA A4 area: 19.7 cm2 TAPSE: 1.4 cm Time Measurements MV dec time: 0.16 sec Doppler Measurements & Calculations MV E max reji: 48.2 cm/sec Lat Peak E' Reji: 3.1 cm/sec Med Peak E' Reji: 4.9 cm/sec MV A max reji: 73.8 cm/sec E/E' lat: 15.6 E/E' med: 9.8 MV E/A: 0.65 MV V2 max: 89.9 cm/sec MV P1/2t max reji: 73.1 cm/sec Ao V2 max: 173.6 cm/sec MV max P.2 mmHg MV P1/2t: 81.1 msec Ao max P.1 mmHg MV V2 mean: 48.4 cm/sec Ao V2 mean: 117.4 cm/sec MV mean P.1 mmHg MV dec slope: 264.0 cm/sec2 Ao mean P.5 mmHg MV V2 VTI: 25.9 cm MVA(P1/2t): 2.7 cm2 Ao V2 VTI: 35.4 cm AV (velocity ratio): 0.82 MVA(VTI): 4.3 cm2 SADE(I,D): 3.1 cm2 SADE(V,D): 3.6 cm2 LV V1 max: 162.4 cm/sec SV(LVOT): 111.4 ml TR max reji: 248.0 cm/sec LV V1 max P.6 mmHg TR max P.6 mmHg LV V1 mean P.2 mmHg LV V1 mean: 117.3 cm/sec LV V1 VTI: 29.2 cm ECHO/Echo Complete W/ Contrast Interpretation Summary Moderately dilated left ventricle. The global longitudinal strain = -3.2% (abnormal). The left ventricular ejection fraction is 15 %. Stage 1 diastolic dysfunction. Pulmonary artery systolic pressure is 28 mmHg. Contrast injection was performed. Ordering Physician: Jeni Pina Referring Physician: Jeni Pina Performed By: Charly Salazar RCS
== END | disposition home or self-care (01) ==
LOC: CVS 07:56
PROVIDERS: PCP Family Medicine; Referring Provider Physician Assistant Medical; Visit Provider Physician Assistant Medical
DX: Z95.2 Presence of prosthetic heart valve (principal)
CPT/HCPCS: 93306; Q9957; A4216; C8929

== ENCOUNTER → 2024-10-15 | Outpatient (CLI) | payer BC, SELFPAY ==
--- NOTE | 2024-10-15 16:10 | RAD_ITS ---
PROCEDURE: CHEST PA AND LATERAL 10/15/2024 REASON FOR EXAM: CARDIAC CATH TECHNIQUE: Frontal and lateral views of the chest. COMPARISON: CT chest performed on 08/01/2018. FINDINGS: Pacemaker is seen overlying the left chest. There are median sternotomy wires present, likely from prior CABG surgery. The cardiac silhouette is within normal limits. No focal consolidation is seen within the lungs. There is no pneumothorax. There are no acute osseous abnormality is present. RAD/Chest PA and Lateral IMPRESSION: No focal infiltrate or consolidation is seen within the lungs. No pneumothorax . Reading Location: [id number]
[2024-10-15 18:18] LABS: Absolute Lymphocyte Count 1.57 X10^3/uL (0.83-4.51); Basophil# 0.04 X10^3/uL; Basophil% 0.7 % (0-1); Eosinophil# 0.33 X10^3/uL; Eosinophils% 5.9 % (0-5); Hematocrit 42.5 % (40-54); Hemoglobin 14.3 g/dL (13.0-16.5); Lymphocyte # 1.57 X10^3/ul (0.83-4.51); Lymphocyte % 28.1 % (19-41); Mean Corp Hgb Conc 33.6 g/dL (32-36); Mean Corpuscular Hgb 31.2 pg (27.0-32.0); Mean Corpuscular Volume 92.6 fL (80-94); Mean Platelet Vol. 10.6 fl (6.2-12.0); Monocyte# 0.62 X10^3/uL; Monocyte% 11.1 % (0-10); NRBC Flagged by Analyzer 0 % (0-5); Neutrophil % 53.8 % (47-70); Platelet Count 208 K/mm3 (150-450); RBC Distribution Width CV 15.1 % (11.6-14.6); RBC Distribution Width SD 51.8 fl (35.1-43.9); Red Blood Count 4.59 M/mm3 (4.6-6.2); White Blood Count 5.6 K/mm3 (4.4-11.0)
[2024-10-15 18:43] LABS: Anion Gap 9 (5-15); BUN 23 mg/dL (4-19); Calcium,Total 9.4 mg/dL (7.6-11.0); Carbon Dioxide 23.7 mmol/L (21.0-32.0); Chloride 106 mmol/L (98-108); EST Glomerular Filtration Rate 69 (>60); Glucose 87 mg/dL (70-99); Potassium 4.1 mmol/L (3.3-5.1); Sodium Level 139 mmol/L (133-145)
[2024-10-15 19:01] LABS: International Normalized Ratio 1.8; Prothrombin Time (Protime)PT. 21.3 SECONDS (11.7-14.9)
[2024-10-15 19:02] LABS: Partial Thromboplast Time 31.7 Seconds (24.1-36.2)
== END | disposition home or self-care (01) ==
LOC: RAD 16:07
PROVIDERS: PCP Family Medicine; Referring Provider Nurse Practitioner Gerontology; Visit Provider Nurse Practitioner Gerontology
DX: R93.1 Abnormal findings on diagnostic imaging of heart and coronary circulation (principal); I51.9 Heart disease, unspecified
CPT/HCPCS: 36415; 71046; 80048; 85025; 85610; 85730

== ENCOUNTER 2024-10-22 10:27 | Day surgery (SDC) | payer BC, SELFPAY ==
[2024-10-19 07:32] VITALS: BMI 28.4
[2024-10-22 10:36] LABS: Prothrombin Time Fingerstick 12.5 SEC (11.7-14.9)
--- NOTE | 2024-10-22 12:20 | CL.D_ITS ---
Patient Name: MATTHEW TRACY Study Date: 10/22/2024 Performing: Brian Virk MD Ht: 70 inches 177.8 cm : 1965 Wt: 198 lbs 89.81 kg Age: 59 Gender: male BSA: 2.08 PROCEDURE(S) PERFORMED DC02-(83357)LHC/COR DC11-([id number])AO ROOT ANGIO WITH HEART CATH CLINICAL PROFILE AND INDICATIONS Heart Failure: NYHA Class: 2, Newly Diagnosed: Yes, Heart Failure Type: Systolic Stress/Imaging Stress/Image Study Performed: No CAD Presentations: Symptom unlikely to be ischemic. CONCLUSIONS Cardiomyopathy out of proportion to the extent of the coronary disease and prosthetic aortic valve with aortic root graft all functionality normal. RECOMMENDATIONS Guideline directed medical care and possible upgrade to defibrillator if EF does not improve after the requisite time. DESCRIPTION OF PROCEDURE The patient arrived to the procedure lab. The risks and benefits of the procedure as well as a full description of our services here and current unavailability of surgical backup were fully explained to the patient and/or their significant other prior to the catheterization. The Timeout was completed, verifying the correct patient and procedure. The patient's procedural site was prepped and draped in the usual fashion. Local anesthetic was given subcutaneously to right radial region with Lidocaine 2%. Using a modified Seldinger technique, arterial access was obtained via the right radial artery, a 6Fr sheath was inserted. Left Coronary Artery selective angiography was performed in multiple views using a 5 Fr. 4.0 [place] catheter. Ascending (root) aorta selective angiography was then performed in single view. Ascending (root) aorta selective angiography was then performed in single view.The arterial sheath was pulled and a TR Band was applied for hemostasis w/ 10ml air CORONARY ANGIOGRAPHY DOMINANCE: Right Dominant LEFT HEART ASSESSMENT Left Ventricular Ejection Fraction: by Echo 15 % Global Hypokinesis - Severe Depressed Left Ventricular systolic function LEFT MAIN: Angiographically normal LEFT ANTERIOR DESCENDING ARTERY: Medium size vessel with no significant stenosis by the midsegment 50% stenosis with probable intramyocardial segment. CIRCUMFLEX ARTERY: Angiographically normal RIGHT CORONARY ARTERY: No significant disease noted VALVE FINDINGS: Prosthetic valve AORTIC ROOT: Graft COMPLICATIONS No Complications PROCEDURE MEDICATIONS Versed 1 mg IV Fentanyl 50 mcg IV Versed 1 mg IV Oxygen: 2 L/min via nasal cannula Heparin given IA 10/22/2024 11:39:24 SUMMARY OF HEMODYNAMIC DATA Time AIR REST ECG 10:51:20 AO 89/66 (76) SA 11:41:44 Signed By Brian Virk MD On 10/22/2024 12:19:38 Brian Virk MD
== END 2024-10-22 13:30 | disposition home or self-care (01) ==
PROVIDERS: PCP Family Medicine; Referring Provider Internal Medicine Cardiovascular Disease; Visit Provider Internal Medicine Cardiovascular Disease
DX: I25.10 Atherosclerotic heart disease of native coronary artery without angina pectoris (principal); I50.20 Unspecified systolic (congestive) heart failure; R93.1 Abnormal findings on diagnostic imaging of heart and coronary circulation; I35.0 Nonrheumatic aortic (valve) stenosis; I47.10 Supraventricular tachycardia, unspecified; I71.20 Thoracic aortic aneurysm, without rupture, unspecified; Z95.2 Presence of prosthetic heart valve; Z95.0 Presence of cardiac pacemaker; Z79.01 Long term (current) use of anticoagulants; Z79.899 Other long term (current) drug therapy
CPT/HCPCS: 36416; 85610; 93454; 93567; 99152; 99153; Q9967; C1769; C1894

== ENCOUNTER → 2025-01-05 | Outpatient (CLI) | payer BC, SELFPAY ==
--- OUTSIDE RECORDS SUMMARY | 2025-01-05 11:19 | XMS RPT_ITS | CCD ---
Author Organization [facility] Care Team Providers Care Shank Skinner Name Role Phone DANGELO Cabrera, Tammi Estevez Unavailable Roni Carballo Primary Care Provider Dr. Roni Rodarte Primary Care Provider [phone] Erik Patricia Attending Provider Dr. Erik Patricia Referring Provider Dr. Roni Rodarte Referring Provider [phone] Emerson DORANTES, WIRE INSPECTORMonse Amor Attending Provider Dr. Erik Patricia Other Provider Dr. Beto Tse Attending Provider Asya Tanner Attending Provider Unavailable Dr. Roni Rodarte Primary Care Provider [phone] Roni Rodarte Referring Provider Dr. Erik Patricia Attending Provider Pollo DORANTES, BAYLEE Harvey Attending Provider Roni Rodarte MD Primary Care Provider [phone] Dr. Roni Rodarte Primary Care Provider [phone] Brian Virk Attending Provider Dr. Brian Virk Referring Provider Dr. Roni Rodarte Referring Provider sAya Tanner Attending Provider Unavailable Dr. Roni Rodarte Primary Care Provider [phone] Roni Rodarte Referring Provider Yovani GRACIA, SAMIA Estevez Attending Provider Dr. Roni Rodarte Primary Care Provider Dr. Brian Virk Attending Provider [phone] Brian Virk Referring Provider [phone] Roni Rodarte Referring Provider [phone] SAMIA Yates Attending Provider Dr. Roni Rodarte Primary Care Provider [phone] Brian Virk Attending Provider [phone] Brian Virk Referring Provider [phone] RONI RODARTE A Primary Care Unavailable Cayden DAWN, Dr. Watson Primary Care Provider Moose DAWN, Dr. Torres Attending Provider [phone] [phone] DAWN, Dr. Torres Referring Provider [phone] Jeni Yates Attending Provider [phone] Jeni Yates Referring Provider [phone] Cayden DAWN, Dr. Watson Referring Provider Emerson WIRE INSPECTOR-C, Zuleyma Attending Provider [phone] Emerson WIRE INSPECTOR-CZuleyma Referring Provider [phone] Rodarte, Roni Primary Care Unavailable Emerson WIRE INSPECTOR, Zuleyma Referring Unavailable Emerson WIRE INSPECTOR, Zuleyma Attending Unavailable Rodarte, Roni Primary Care Unavailable Otoe, Yamilet Referring Unavailable Otoe, Yamilet Attending Unavailable Rodarte, Roni Primary Care Unavailable Emerson WIRE INSPECTOR, Zuleyma Referring Unavailable Emerson WIRE INSPECTOR, Zuleyma Attending Unavailable Rodarte, Roni Primary Care Unavailable Moose, Hillside Referring Unavailable Moose, Brian Attending Unavailable Rodarte, Roni Primary Care Unavailable Moose, Hillside Attending Unavailable Moose, Brian Referring Unavailable Rodarte, Roni Primary Care Unavailable Moose, Brian Attending Unavailable Rodarte, Roni Primary Care Unavailable Rodarte, Roni Referring Unavailable Norman WIRE INSPECTOR, Zuleyma Attending Unavailable Rodarte, Roni Primary Care Unavailable Moose, Brian Attending Unavailable Moose, Brian Referring Unavailable Rodarte, Roni Referring Unavailable Rodarte, Roni Primary Care Unavailable Jeni Yates Attending Unavail able Rodarte, Roni Primary Care Unavailable Moose, Hillside Referring Unavailable Moose, Hillside Attending Unavailable Moose, Hillside Referring Unavailable Brian Virk Attending Unavailable Roni Rodarte Primary Care Unavailable Roni Rodarte Primary Care Unavailable Elba Meyer Referring Unavailable Elba Meyer Attending Unavailable Roni Rodarte Primary Care Unavailable Roni Rodarte Referring Unavailable Roni Rodarte Attending Unavailable Cayden, Roni Primary Care Unavailable Jeni Yates Referring Unavail able Jeni Yates Attending Unavail able Roni Rodarte Primary Care Unavailable Omer Khanna Referring Unavailable Omer Khanna Attending Unavailable Medications Current Medications Medication Drug Class(es) Dates Sig (Normalized) Sig (Original) aspirin 81 mg delayed release oral tablet (19 sources) Nonsteroidal Anti-inflammatory Drug Start: 10-15-2024 Aspirin (Adult Low Dose Aspirin) 81 mg tablet,delayed release (DR/EC) Active 81 mg PO daily October 15, 2024 12:00am Start: 11-25-2017 End: 12-29-2018 Aspirin (Adult Low Dose Aspi rin) 81 mg tablet,delayed release (DR/EC) Discontinued 81 mg PO daily November 25, 2017 12:00am December 29, 2018 3:12pm Start: 10-01-2010 take 1 tablet by jean pierre th once daily ASPIRIN 81 MG TABS One tablet by mouth daily ASPIRIN [id number] Sagrario Naranjo Start: 10-01-2010 take 1 tablet by jean pierre th once daily ASPIRIN EC 81 MG TBEC One tablet by mouth daily ASPIRIN [id number] Jeni Grnager RN carvedilol 6.25 mg oral tablet (3 sources) alpha-Adrenergic Pritesh, beta-Adrenergic Pritesh Start: 10-15-2024 take 1 tablet by mouth twice daily at mealtime Carvedilol 6.25 mg tablet Active 6.25 mg PO TWICE A DAY October 15, 2024 12:00am must administer with a meal/food dapagliflozin 10 mg oral tablet (2 sources) Sodium-Glucose Cotransporter 2 Inhibitor Start: 10-22-2024 take 1 tablet by mouth once daily in the morning Dapagliflozin Propanediol (Farxiga) 10 mg tablet Active 10 mg PO EVERY MORNING October 22, 2024 12:00am levothyroxine sodium 0.15 mg oral tablet (20 sources) l-Thyroxine Start: 02-16-2024 take 1 tablet by mouth once daily Levothyroxine 150 mcg tablet Active 150 ug PO daily February 16, 2024 12:00am Start: 03-18-2023 End: 02-16-2024 Levothyroxine 125 mcg tablet Discontinued 137 ug PO DAILY March 18, 2023 1:47pm February 16, 2024 11:42am alternating with 150mcg Start: 03-18-2023 take 137 ug by mouth once rina y Levothyroxine Active 137 MCG PO DAILY March 18, 2023 1:47pm alternating with 150mcg Start: 05-13-2021 End: 03-18-2023 take 1 tablet by mouth once daily Levothyroxine 125 mcg tablet Discontinued 125 ug PO DAILY May 13, 2021 1:00am March 18, 2023 1:48pm Start: 01-15-2020 End: 05-13-2021 Levothyroxine 112 mcg capsul e Discontinued 125 ug PO DAILY January 15, 2020 3:25pm May 13, 2021 2:05pm Start: 09-06-2018 End: 01-15-2020 take 1 capsule by mouth once daily Levothyroxine 112 mcg capsule Discontinued 112 ug PO DAILY September 06, 2018 12:00am January 15, 2020 3:25pm Comment on above: Take 125 mcg by mout h daily before breakfast. meloxicam 15 mg oral tablet (2 sources) Nonsteroidal Anti-inflammatory Drug Start: 08-17-2022 End: 12-16-2022 take 1 tablet by mouth once daily meloxicam (MOBIC) 15 mg tablet Take 1 tablet by mouth once daily. 30 tablet 2 09/17/2022 12/16/2022 Active Comment on above: Take 1 tablet by jean pierre th once daily. Completed/Discontinued Medications Medication Drug Class(es) Dates Sig (Normalized) Sig (Original) acetaminophen 325 mg / oxyCODONE hydrochloride 5 mg oral tablet (13 sources) Opioid Agonist Start: 04-19-2014 End: 11-29-2017 Oxycodone-Acetamino phen 1 TABLET tablet Discontinued 1 - 2 {tbl} PO EVERY 4 HOURS NEEDED as needed for PAIN April 19, 2014 1:00am November 29, 2017 4:22pm Start: 04-19-2014 End: 11-29-2017 take 1 tablet by mouth every four hours as needed Oxycodone-Acetaminophen Discontinued 1 - 2 TABLET PO EVERY 4 HOURS NEEDED April 19, 2014 1:00am November 29, 2017 4:22pm 1 ml enoxaparin sodium 100 mg/ml prefilled syringe (3 sources) Low Molecular Weight Heparin Start: 04-07-2016 take 1 tablet by mouth twice daily LOVENOX 100 MG/ML SOLN One tablet by mouth twice daily ENOXAPARIN SODIUM [id number] Erik Patricia MD Start: 04-07-2016 End: 08-16-2016 LOVENOX 100 MG/ML SOLN One s ubcutaneous injection twice daily ENOXAPARIN SODIUM [id number] Erik Patricia MD 24 hr metoprolol succinate 50 mg extended release oral tablet (20 sources) beta-Adrenergic Pritesh Start: 05-18-2019 End: 02-16-2024 take 0.5 tablet by mouth twice daily Metoprolol Succinate 50 mg tablet extended release 24 hr Discontinued 0 .ROUTE .COMPLEX December 15, 2021 9:04am February 16, 2024 11:27am TAKE 1/2 TABLET BY MOUTH TWICE A DAY Start: 05-18-2019 End: 12-15-2021 take 25 mg by mouth twice daily Metoprolol Succinate Discontinued 25 MG PO TWICE A DAY September 15, 2020 8:11am December 15, 2021 9:04am Start: 09-25-2018 End: 05-18-2019 take 1 tablet by mouth twice daily Metoprolol Succinate 50 mg tablet extended release 24 hr Discontinued 50 mg PO TWICE A DAY September 25, 2018 11:56am May 18, 2019 3:47pm Start: 09-05-2017 End: 09-25-2018 take 2 tablets by mouth twice daily Metoprolol Succinate 50 mg tablet extended release 24 hr Discontinued 25 mg PO TWICE A DAY June 26, 2018 2:37pm September 25, 2018 11:56am Start: 09-05-2017 End: 09-25-2018 take 25 mg by mouth twice daily Metoprolol Succinate Discontinued 25 MG PO TWICE A DAY June 26, 2018 2:37pm September 25, 2018 11:56am Start: 03-08-2015 metoprolol suc cinate ER (TOPROL XL) 50 mg 24 hr tablet Start: 04-08-2014 End: 09-05-2017 take 1 tablet by mouth twice daily Metoprolol Tartrate 25 MG tablet Discontinued 25 mg PO TWICE A DAY April 08, 2014 12:00am September 05, 2017 1:57pm Start: 10-01-2010 take 1 tablet by jean pierre th twice daily TOPROL XL 50 MG [id number] One half tablet by mouth twice daily METOPROLOL SUCCINATE [id number] Erik Patricia MD MULTIPLE VITAMIN (2 sources) Start: 10-01-2010 take 1 tablet by mouth once daily MULTIVITAMINS TABS One tablet by mouth daily MULTIPLE VITAMIN [id number] Sagrario Naranjo Start: 10-01-2010 End: 03-12-2013 take 1 tablet by mouth once daily MULTIVITAMINS TABS One tablet by mouth daily MULTIPLE VITAMIN [id number] Erik Patricia MD omeprazole 40 mg delayed release oral capsule (13 sources) Proton Pump Inhibitor Start: 05-29-2019 End: 01-15-2020 take 1 capsule by mouth once daily Omeprazole 40 mg capsule,delayed release(DR/EC) Discontinued 40 mg PO DAILY May 29, 2019 1:00am January 15, 2020 3:25pm ramipril 2.5 mg oral capsule (15 sources) Angiotensin Converting Enzyme Inhibitor Start: 10-01-2010 End: 11-29-2017 take 1 capsule by mouth once daily Ramipril 2.5 MG capsule Discontinued 2.5 mg PO DAILY April 16, 2014 1:00am November 29, 2017 4:22pm warfarin sodium 4 mg oral tablet (20 sources) Vitamin K Antagonist Start: 04-16-2014 End: 11-23-2021 Warfarin 2 mg tablet Active 6 mg PO [facility] November 23, 2021 3:35pm Double dose for 10/23/24- then resume normal dosing Please contact the information source for Protocol details. Start: 04-16-2014 End: 11-23-2021 Warfarin Active 6 MG PO [facility] November 23, 2021 3:35pm Managed by PCP Start: 11-20-2012 take 2 mg by mouth e very week, then take 1 tablet by mouth once daily COUMADIN 4 MG TABS 2 mg (1/2 tablet) for 2 days per week and 4 mg (1 tablet) by mouth daily for 5 days per week WARFARIN SODIUM [id number] Erik Patricia MD Start: 07-12-2012 COUMADIN 3 MG TABS Take as directed-current dose is 3.5 mg X 5 days per wk, 3 mg X 2 days per wk WARFARIN SODIUM [id number] Erik Patricia MD Start: 07-12-2012 End: 04-26-2016 COUMADIN 1 MG TABS Current d ose 5.5 mg daily WARFARIN SODIUM [id number] Debby Freeman RN Start: 07-12-2012 COUMADIN 1 MG TABS patient keeps on hand in case dose changes: currently on 3 mg Mon through Fri and 4 mg Sat and Sun WARFARIN SODIUM [id number] Edilson Gilbert MD Start: 07-12-2012 COUMADIN 4 MG TABS 3 mg a day on Mon through Fri, 4 mg on Sat and Sun WARFARIN SODIUM [id number] Debby Freeman RN Start: 10-01-2010 End: 04-26-2016 take 1 tablet by mouth once daily in the evening COUMADIN 5 MG TABS One tablet by mouth every evening WARFARIN SODIUM [id number] Erik Patricia MD Start: 05-30-2008 End: 11-23-2021 take 1 tablet by mouth once daily Warfarin 4 mg tablet Discontinued 4 mg PO daily June 26, 2018 5:45pm May 18, 2019 3:47pm Please contact the information source for Protocol details. Comment on above: Take one(1) tablet d aily. Problems Active Problems Problem Classification Problem Date Documented Date Episodic/Chronic Acquired foot deformities (1 source) Talipes planus; Translations: [Flat foot [pes planus] (acquired), right foot] Episodic Aortic; peripheral; and visceral artery aneurysms (14 sources) Thoracic aortic aneurysm, without rupture; Translations: [Thoracic aortic aneurysm without rupture] Onset: 09-02-2016 09-02-2016 Chronic Cardiac dysrhythmias (20 sources) Atrial paroxysmal tachycardia; Translations: [Paroxysmal tachycardia] Onset: 10-01-2010 10-01-2015 Chronic Cardiac dysrhythmias (8 sources) Tachycardia; Translations: [Tachycardia, unspecified] 04-27-2019 Episodic Chronic kidney disease (1 source) Chronic kidney disease; Translations: [Chronic kidney disease, stage 3b] Onset: 03-08-2024 Complications of surgical procedures or medical care (20 sources) Hematoma of surgical wound of skin due to and following surgical procedure; Translations: [Hematoma of surgical wound of skin due to and after surgical procedure] 10-10-2021 Episodic Conduction disorders (20 sources) Cardiac pacemaker in situ; Translations: [Complete atrioventricular block] Onset: 10-01-2010 10-01-2010 Chronic Comment on above: Pacemaker placement 08/01/02; 02/22/07 removal of pacemaker, Implant of Coronary sinus lead & implant of A-V Biventricular pacemaker; PPM generator change 04/21/11; Extraction of RV lead & generator change out 04/25/14; Generator change 10/01/2021- Dr. Tse at [facility]; Disorders of lipid metabolism (14 sources) Hyperlipidemia; Translations: [Pure hypercholesterolemia] Onset: 10-01-2010 10-01-2010 Chronic Fracture of lower limb (3 sources) Fracture of shaft of tibia ; Translations: [Unspecified fracture of shaft of unspecified tibia, initial encounter for closed fracture] Onset: 04-03-2015 04-03-2015 Episodic Heart valve disorders (20 sources) Presence of prosthetic heart valve; Translations: [Heart valve replaced by other means] Onset: 07-14-2002 Resolved: 06-16-2015 06-16-2015 Chronic Comment on above: AVR with 25mm ON-X v alve 07/31/[address] Sinha @ [facility] AVR with 25mm ON-X v alve 07/31/[address] Sinha @ [facility]; Other aftercare (13 sources) Long-term current use of drug therapy; Translations: [Other prison (current) drug therapy] 11-29-2017 Episodic Comment on above: Anticoagulant Other aftercare (20 sources) Long-term current use of anticoagulant; Translations: [patient financial specialist (current) use of anticoagulants] 04-27-2019 Episodic Other and ill-defined heart disease (3 sources) Depression of left ventricular systolic function; Translations: [Heart disease, unspecified] 10-15-2024 Chronic Other and ill-defined heart disease (1 source) Heart disease, unspecified; Translations: [Heart disease, unspecified] Onset: 10-15-2024 Chronic Other circulatory disease (14 sources) Low blood pressure; Translations: [Other hypotension] Onset: 10-01-2010 10-01-2010 Episodic Other connective tissue disease (1 source) Tendinitis of left posterior tibial tendon; Translations: [Posterior tibial tendinitis, left leg] Episodic Bella-; endo-; and myocarditis; cardiomyopathy (20 sources) Dilated cardiomyopathy; Translations: [Cardiomyopathy in diseases classified elsewhere] Onset: 10-01-2010 10-01-2010 Chronic Residual codes; unclassified (13 sources) Noncompliance with treatment; Translations: [Patient's noncompliance with other medical treatment and regimen] 09-28-2019 Episodic Unclassified (2 sources) Body mass index (BMI) 30.0-30.9, adult; Translations: [Body mass index (BMI) 30.0-30.9, adult] Onset: 03-12-2013 06-09-2015 Chronic Unclassified (20 sources) Abnormal findings on diagnostic imaging of heart and coronary circulation; Translations: [Abnormal findings diagnostic imaging heart+coronary circulat] Onset: 10-01-2010 10-01-2010 Episodic Unclassified (1 source) Drug therapy finding; Translations: [patient financial specialist (current) use of anticoagulants] Onset: 09-04-2013 09-26-2015 Past or Other Problems Problem Classification Problem Date Documented Date Episodic/Chronic Abdominal hernia (2 sources) Incisional hernia; [...] [Encounter for sterilization] Onset: 05-30-2008 05-30-2008 Episodic Nutritional deficiencies (1 source) Iron deficiency; Translations: [Iron deficiency] Onset: 07-07-2024 Episodic Residual codes; unclassified (16 sources) History of repair of aortic root; Translations: [Other specified postprocedural states] Onset: 07-14-2002 07-09-2019 Episodic Comment on above: repair of ascending aortic aneurysm with 30mm hemashield tube graft 07/31/[address] Sinha 2 [facility]; Residual codes; unclassified (3 sources) Other specified postprocedural states; Translations: [Personal history of surgery to heart and great vessels, presenting hazards to health] Onset: 07-14-2002 03-18-2023 Episodic Unclassified (2 sources) Body mass index (BMI) 29.0-29.9, adult; Translations: [FH: Hypertension] Onset: 03-12-2013 11-20-2014 Episodic Unclassified (1 source) Long-term drug therapy; Translations: [Long-term (current) use of other medications] Onset: 09-04-2013 09-04-2013 Unclassified (10 sources) history ORIFLeft Tib/Fib 01-01-2022 Unclassified (10 sources) irrigation and debridement tibia 01-01-2022 Results Test Name Value Interpretation Reference Range Facility Cardiac Cath Diagnosticon Cardiac Cath Diagnostic [facility] Imaging Services [address] [place] [address] Cardiac Cath Diagnostic MR#: [id number] Acct: [id number] Name: MATTHEW TRACY Rep #: [id number] : 1965 59 From: Brian Virk MD PCP: Dr. Roni Rodarte MD Status:[facility] Patient Name: MATTHEW TRACY Study Date: 10/22/2024 Performing: Brian Virk MD Ht: 70 inches 177.8 cm : 1965 Wt: 198 lbs 89.81 kg Age: 59 Gender: male BSA: 2.08 PROCEDURE(S) PERFORMED DC02-([id number])LHC/COR DC11-([id number])AO ROOT ANGIO WITH HEART CATH CLINICAL PROFILE AND INDICATIONS Heart Failure: NYHA Class: 2, Newly Diagnosed: Yes, Heart Failure Type: Systolic Stress/Imaging Stress/Image Study Performed: No CAD Presentations: Symptom unlikely to be ischemic. CONCLUSIONS Cardiomyopathy out of proportion to the extent of the coronary disease and prosthetic aortic valve with aortic root graft all functionality normal. RECOMMENDATIONS Guideline directed medical care and possible upgrade to defibrillator if EF does not improve after the requisite time. DESCRIPTION OF PROCEDURE The patient arrived to the procedure lab. The risks and benefits of the procedure as well as a full description of our services here and current unavailability of surgical backup were fully explained to the patient and/or their significant other prior to the catheterization. The Timeout was completed, verifying the correct patient and procedure. The patient's procedural site was prepped and draped in the usual fashion. Local anesthetic was given subcutaneously to right radial region with Lidocaine 2%. Using a modified Seldinger technique, arterial access was obtained via the right radial artery, a 6Fr sheath was inserted. Left Coronary Artery selective angiography was performed in multiple views using a 5 Fr. 4.0 [place] catheter. Ascending (root) aorta selective angiography was then performed in single view. Ascending (root) aorta selective angiography was then performed in single view.The arterial sheath was pulled and a TR Band was applied for hemostasis w/ 10ml air CORONARY ANGIOGRAPHY DOMINANCE: Right Dominant LEFT HEART ASSESSMENT Left Ventricular Ejection Fraction: by Echo 15 % Global Hypokinesis - Severe Depressed Left Ventricular systolic function LEFT MAIN: Angiographically normal LEFT ANTERIOR DESCENDING ARTERY: Medium size vessel with no significant stenosis by the midsegment 50% stenosis with probable intramyocardial segment. CIRCUMFLEX ARTERY: Angiographically normal RIGHT CORONARY ARTERY: No significant disease noted VALVE FINDINGS: Prosthetic valve AORTIC ROOT: Graft COMPLICATIONS No Complications PROCEDURE MEDICATIONS Versed 1 mg IV Fentanyl 50 mcg IV Versed 1 mg IV Oxygen: 2 L/min via nasal cannula Heparin given IA 10/22/2024 11:39:24 SUMMARY OF HEMODYNAMIC DATA Time AIR REST ECG 10:51:20 AO 89/66 (76) SA 11:41:44 Signed By Brian Virk MD On 10/22/2024 12:19:38 Brian Virk MD 10/22/24 1220 Date Brian Virk MD Cosigner Signature: Date (if indicated) CC: Dr. Brian Virk MD; Dr. Roni Rodarte MD Date Dictated: 10/22/24 1128 Date Transcribed: 10/22/24 1219 Drawer In Hand: CO Signed Normal [facility] Cardiac catheterization repo rtOrdered By: Brian Virk on 10-22-2024 Cardiac catheterization study [facility] Imaging Services [address] [place] [address] Cardiac Cath Diagnostic MR#: [id number] Acct: [id number] Name: MATTHEW TRACY Rep #:[id number] : 1965 59 From: Brian Virk MD PCP: Dr. Roni Rodarte MD [place] [place] Name: MATTHEW TRACY Study Date: 10/22/2024 Performing: Brian Virk MD Ht: 70 inches 177.8 cm : 1965 Wt: 198 lbs 89.81 kg Age: 59 Gender: male BSA: 2.08 PROCEDURE(S) PERFORMED DC02-([id number])C/COR DC11-([id number])AO ROOT ANGIO WITH HEART CATH CLINICAL PROFILE AND INDICATIONS Heart Failure: NYHA Class: 2, Newly Diagnosed: Yes, Heart Failure Type: Systolic Stress/Imaging Stress/Image Study Performed: No CAD Presentations: Symptom unlikely to be ischemic. CONCLUSIONS Cardiomyopathy out of proportion to the extent of the coronary disease and prosthetic aortic valve with aortic root graft all functionality normal. RECOMMENDATIONS Guideline directed medical care and possible upgrade to defibrillator if EF does not improve after the requisite time. DESCRIPTION OF PROCEDURE The patient arrived to the procedure lab. The risks and benefits of the procedure as well as a full description of our services here and current unavailability of surgical backup were fully explained to the patient and/or their significant other prior to the catheterization. The Timeout was completed, verifying the correct patient and procedure. The patient's procedural site was prepped and draped in the usual fashion. Local anesthetic was given subcutaneously to right radial region with Lidocaine 2%. Using a modified Seldinger technique, arterial access was obtained via the right radial artery, a 6Fr sheath was inserted. Left Coronary Artery selective angiography was performed in multiple views using a 5 Fr. 4.0 [place] catheter. Ascending (root) aorta selective angiography was then performed in single view. Ascending (root) aorta selective angiography was then performed in single view.The arterial sheath was pulled and a TR Band was applied for hemostasis w/ 10ml air CORONARY ANGIOGRAPHY DOMINANCE: Right Dominant LEFT HEART ASSESSMENT Left Ventricular Ejection Fraction: by Echo 15 % Global Hypokinesis - Severe Depressed Left Ventricular systolic function LEFT MAIN: Angiographically normal LEFT ANTERIOR DESCENDING ARTERY: Medium size vessel with no significant stenosis by the midsegment 50% stenosis with probable intramyocardial segment. CIRCUMFLEX ARTERY: Angiographically normal RIGHT CORONARY ARTERY: No significant disease noted VALVE FINDINGS: Prosthetic valve AORTIC ROOT: Graft COMPLICATIONS No Complications PROCEDURE MEDICATIONS Versed 1 mg IV Fentanyl 50 mcg IV Versed 1 mg IV Oxygen: 2 L/min via nasal cannula Heparin given IA 10/22/2024 11:39:24 SUMMARY OF HEMODYNAMIC DATA Time AIR REST ECG 10:51:20 AO 89/66 (76) SA 11:41:44 Signed By Brian Virk MD On 10/22/2024 12:19:38 Brian Virk MD 10/22/24 1220 Date _ Brian Virk MD Cosigner Signature: Date (if indicated) CC: Dr. Brian Virk MD; Dr. Roni Rodarte MD ~ Date Dictated: 10/22/24 1128 Date Transcribed: 10/22/24 1219 Drawer In Hand: CO Signed [facility] Work Phone: International normalized rat io (INR) measurement by fingerstickOrdered By: Brian Virk on 10-22-2024 INR Coag (BldC) [Relative time] 1.0 [facility] Comment on above: Critical Value > 4.0 Protime w/INR Fingerstickon 10-22-2024 INR Coag (PPP) [Relative time] 1.0 {INR} Normal [facility] Comment on above: Result Comment: Crit ical Value > 4.0 Performed By: #### L 9200.0000 #### [facility] Laboratory [address] [place], [place], [id number] Protime [place] 12.5 SEC Normal 11.7-14.9 [facility] Comment on above: Performed By: #### L 9200.0000 #### [facility] [address] [place], [place], [address] Whole blood prothrombin time Ordered By: Brian Virk on 10-22-2024 PT Coag (Bld) [Time] 12.5 s 11.7-14.9 [facility] 12 Lead EKG performed by [facility] [place] 10-15-2024 12 Lead EKG performed by [place] [address] [place] [address] 12 Lead EKG performed by [facility] 10/15/24 1532 MR#: [id number] Acct: [id number] Name: MATTHEW TRACY Rep #: [id number] : 1965 59 From: Zuleyma Norman NP WIRE INSPECTOR-C Attending Dr: Zuleyma Norman NP-C Status: DEP A MB Ordering Dr: Zuleyma Norman WIRE INSPECTOR WIRE INSPECTOR-C Date: 10/15/24 [place] [facility] Sex: M C Admitted: [facility]/12 Lead EKG performed by [facility] ECG Report Interpretation ---Electronic dual-chamber pacemaker -possibly demand type Pacemaker ECG, No further analysis INSUFFICIENT DATAElectronically signed on 10/15/2024 at 17:32 by Brian Virk Software Version [id number] 10/15/24 1736 Date Zuleyma Norman NP WIRE INSPECTOR-C CC: Dr. Roni Rodarte MD Date Dictated: 10/15/241531 Date Transcribed: 10/15/241531 Drawer In Hand: ENEDELIA Signed Normal [facility] Absolute lymphocyte countOrd ered By: Zuleyma Norman on 10-15-2024 Lymphocytes Auto (Unsp spec) [#/Vol] 1.57 10*3/uL 0.83-4.51 [facility] Absolute neutrophil countOrd ered By: Zuleyma Norman on 10-15-2024 Neutrophils (Bld) [#/Vol] 3.0 10*3/uL 2.0-7.7 [facility] Activated partial thrombopla stin time (aPTT) in platelet poor plasma by coagulation aOrdered By: Zuleyma Norman on 10-15-2024 aPTT Coag (PPP) [Time] 31.7 s 24.1-36.2 [facility] Anion gap in Serum or Plasma Ordered By: Zuleyma Norman on 10-15-2024 Anion gap [Moles/Vol] 9 mmol/L 5- [facility] Automated lymphocyte count a s percentage of total leukocytesOrdered By: Zuleyma Norman on 10-15-2024 Lymphocytes/100 WBC Auto (Unsp spec) 28.1 % -41 [facility] BUN/creatinine ratioOrdered By: Zuleyma Norman on 10-15-2024 Urea nitrogen/Creatinine [Mass ratio] 19.0 mg/mg - [facility] Basic Metabolic Profile (BMP )on 10-15-2024 BUN/CRE 19.0 RATIO Normal 04-01 [facility] Comment on above: Performed By: #### L 300.4310, L500.2500, L100.0100, L300.3900 ####[facility] [address] [place], [address] Calcium [Mass/Vol] 9.4 mg/dL Normal 7.6-11.0 [facility] Comment on above: Performed By: #### L 300.4310, L500.2500, L100.0100, L300.3900 ####[facility] [address] [place], [address] Chloride [Moles/Vol] 106 mmol/L Normal 98-108 [facility] Comment on above: Performed By: #### L 300.4310, L500.2500, L100.0100, L300.3900 ####[facility] [address] [place], [address] CO2 [Moles/Vol] 23.7 mmol/L Normal 21.0-32.0 [facility] Comment on above: Performed By: #### L 300.4310, L500.2500, L100.0100, L300.3900 ####[facility] [address] [place], [address] Creatinine [Mass/Vol] 1.20 mg/dL Normal 0.70-1.20 [facility] Comment on above: Performed By: #### L 300.4310, L500.2500, L100.0100, L300.3900 ####[facility] [address] [place], [address] GAP 9 Normal 5-15 [facility] Comment on above: Performed By: #### L 300.4310, L500.2500, L100.0100, L300.3900 ####[facility] [address] [place], [address] GFR/1.73 sq M.predicted among non-blacks MDRD (S/P/Bld) [Vol rate/Area] 69 mL/min/{1.73_m2} Normal >60 [facility] Comment on above: Result Comment: mL/m in/1.73m2 CKD-EPI Creatinine Equation (2020) Performed By: #### L 300.4310, L500.2500, L100.0100, L300.3900 ####[facility] [address] [place], [address] Glucose [Mass/Vol] 87 mg/dL Normal 70-99 [facility] Comment on above: Performed By: #### L 300.4310, L500.2500, L100.0100, L300.3900 ####[facility] [address] [place], [address] Potassium [Moles/Vol] 4.1 mmol/L Normal 3.3-5.1 [facility] Comment on above: Performed By: #### L 300.4310, L500.2500, L100.0100, L300.3900 ####[facility] [address] [place], [address] Sodium [Moles/Vol] 139 mmol/L Normal 133-145 [facility] Comment on above: Performed By: #### L 300.4310, L500.2500, L100.0100, L300.3900 ####[facility] [address] [place], [address] Urea nitrogen [Mass/Vol] 23 mg/dL High 4-19 [facility] Comment on above: Performed By: #### L 300.4310, L500.2500, L100.0100, L300.3900 ####[facility] [address] [place], [address] Basophil percentageOrdered B y: Zuleyma Norman on 10-15-2024 Basophils/100 WBC (Bld) 0.7 % 0-[address] [facility] CBC W/Diff, Automatedon Absolute Lymph 1.57 X10 3/uL Normal 0.83-4.51 [facility] Comment on above: Performed By: #### L 300.4310, L500.2500, L100.0100, L300.3900 ####[facility] [address] [place], [address] Absolute Neut 3.0 X10 3/uL Normal 2.0-7.7 [facility] Comment on above: Performed By: #### L 300.4310, L500.2500, L100.0100, L300.3900 ####[facility] [address] [place], [address] Basophils/100 WBC (Bld) 0.7 % Normal 0-[address] [facility] Comment on above: Performed By: #### L 300.4310, L500.2500, L100.0100, L300.3900 ####[facility] [address] [place], [address] Eosinophils/100 WBC (Bld) 5.9 % High 0-5 [facility] Comment on above: Performed By: #### L 300.4310, L500.2500, L100.0100, L300.3900 ####[facility] [address] [place], [address] Erythrocyte distribution width (RBC) [Ratio] 15.1 % High 11.6-14.6 [facility] Comment on above: Performed By: #### L 300.4310, L500.2500, L100.0100, L300.3900 ####[facility] [address] [place], [address] Hematocrit (Bld) [Volume fraction] 42.5 % Normal 40-54 [facility] Comment on above: Performed By: #### L 300.4310, L500.2500, L100.0100, L300.3900 ####[facility] [address] [place], [address] Hemoglobin (Bld) [Mass/Vol] 14.3 g/dL Normal 13.0-16.5 [facility] Comment on above: Performed By: #### L 300.4310, L500.2500, L100.0100, L300.3900 ####[facility] [address] [place], [address] IG% 0.400 Normal 0.0-0.9 [facility] Comment on above: Result Comment: IG% - Immature Granulocytes (promyelocytes, myelocytes and metamyelocytes) > 1% indicates that a LEFT SHIFT is Present. Performed By: #### L 300.4310, L500.2500, L100.0100, L300.3900 ####[facility] [address] [place], [address] Lymphocytes/100 WBC (Bld) 28.1 % Normal 19-41 [facility] Comment on above: Performed By: #### L 300.4310, L500.2500, L100.0100, L300.3900 ####[facility] [address] [place], [address] MCH (RBC) [Entitic mass] 31.2 pg Normal 27.0-32.0 [facility] Comment on above: Performed By: #### L 300.4310, L500.2500, L100.0100, L300.3900 ####[facility] [address] [place], [address] MCHC (RBC) [Mass/Vol] 33.6 g/dL Normal 32-36 [facility] Comment on above: Performed By: #### L 300.4310, L500.2500, L100.0100, L300.3900 ####[facility] [address] [place], [address] MCV (RBC) [Entitic vol] 92.6 fL Normal 80-[address] [facility] Comment on above: Performed By: #### L 300.4310, L500.2500, L100.0100, L300.3900 ####[facility] [address] [place], [address] Monocytes/100 WBC (Bld) 11.1 % High 0-[address] [facility] Comment on above: Performed By: #### L 300.4310, L500.2500, L100.0100, L300.3900 ####[facility] [address] [place], [address] Neutrophils/100 WBC (Bld) 53.8 % Normal 47-70 [facility] Comment on above: Performed By: #### L 300.4310, L500.2500, L100.0100, L300.3900 ####[facility] [address] [place], [address] Nucleated RBC (Bld) [#/Vol] 0 10*3/uL Normal 0-5 [facility] Comment on above: Performed By: #### L 300.4310, L500.2500, L100.0100, L300.3900 ####[facility] [address] [place], [address] Platelet mean volume (Bld) [Entitic vol] 10.6 fL Normal 6.2-12.0 [facility] Comment on above: Performed By: #### L 300.4310, L500.2500, L100.0100, L300.3900 ####[facility] [address] [place], [address] Platelets (Bld) [#/Vol] 208 10*3/uL Normal 150-450 [facility] Comment on above: Performed By: #### L 300.4310, L500.2500, L100.0100, L300.3900 ####[facility] [address] [place], [address] RBC (Bld) [#/Vol] 4.59 10*6/uL Low 4.6-6.2 [facility] Comment on above: Performed By: #### L 300.4310, L500.2500, L100.0100, L300.3900 ####[facility] [address] [place], [address] RDW SD 51.8 fl High 35.1-43.9 [facility] Comment on above: Performed By: #### L 300.4310, L500.2500, L100.0100, L300.3900 ####[facility] [address] [place], [address] WBC (Bld) [#/Vol] 5.6 10*3/uL Normal 4.4-11.0 [facility] Comment on above: Performed By: #### L 300.4310, L500.2500, L100.0100, L300.3900 ####[facility] [address] [place], [address] Carbon dioxide, total [Moles /volume] in Central venous bloodOrdered By: Zuleyma Norman on 10-15-2024 CO2 [Moles/Vol] 23.7 mmol/L 21.0-32.0 [facility] Cardiology Visit Reporton Cardiology Visit Report [facility] 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 Tse at [facility]; Plan: His EKG from today demonstrates electronic dual-chamber pacemaker, heart rate 108 bpm. (2) PSVT (paroxysmal supraventricular tachycardia): Status: Chronic (3) Cardiomyopathy in other diseases classified elsewhere: Status: Chronic (4) History of mechanical aortic valve replacement: Status: Chronic Comment: AVR with 25mm ON-X valve 07/31/[address] Sinha @ [facility]; (5) H/O aortic root repair: Status: Chronic Comment: repair of ascending aortic aneurysm with 30mm hemashield tube graft 07/31/[address] Sinha 2 [facility]; (6) Abnormal echocardiogram: Status: Acute Orders: Orders 12 Lead EKG performed by [facility] Today I51.9 - Heart disease, unspecified Basic Metabolic Profile (BMP) Today I51.9 - Heart disease, unspecified, R93.1 - Abnormal findings on diagnostic imaging of heart and coronary circulation CBC W/Diff, Automated Today R93.1 - Abnormal findings on diagnostic imaging of heart and coronary circulation Prothrombin Time w/INR Today R93.1 - Abnormal findings on diagnostic imaging of heart and coronary circulation Partial Thromboplast Time Today R93.1 - Abnormal findings on diagnostic imaging of heart and coronary circulation Chest PA and Lateral Today R93.1 - Abnormal findings on diagnostic imaging of heart and coronary circulation 12 Lead EKG performed by [facility] Today R93.1 - Abnormal findings on diagnostic imaging of heart and coronary circulation Left Heart Cath/COR/LV Percut 10/22/24 R93.1 - Abnormal findings on diagnostic imaging of heart and coronary circulation Medications: New carvedilol must administer with a meal/food 6.25 mg PO BID 60 tabs 11RF Plan Details Follow Up: Keep as is (MMM) 10/15/24 1651 Date Zuleyma Norman NP WIRE INSPECTOR-C cc: * Signed HPI HPI History of Present Illness Surgical H P: Yes Details: Matthew Tracy is a 59-year-old white male who presents today for outpatient cardiovascular follow-up. He has a history of aortic valve replacement (2002: [facility]: Mechanical ON X valve), ascending aortic root repair (2002: [facility]: 30 mm Hemashield graft), conduction system disorder, PSVT, PVT, status post pacemaker mediated induced cardiomyopathy, status post upgrade to biventricular permanent pacemaker, and hyperlipidemia. His generator change was on 09/2021. He underwent an echocardiogram on 09/28/2024 which demonstrated a decreased ejection fraction of 15%, stage I diastolic dysfunction, and pulmonary artery systolic pressure of 28 mmHg.His recent device interrogation from 08/23/2024 showed a presenting rhythm of AF/BIVP. There were 25 atrial high rate episodes detected, and 4 ventricular high rate episodes detected -review of the EGM's are consistent with NSVT lasting 23 beats. From a cardiac standpoint, the patient is doing well. He denies any palpitations, chest pain, pressure or heaviness. He does state that he does climb 4 flights of stairs about 3-4 x week on a fink. He does acknowledge occasional SOB with this-but nothing new or worsening. He denies Orthopnea, and PND. He does not have bleeding issues; no blood in urine, stool, or nosebleeds. He does acknowledge a slight decrease in energy level. He denies myalgias, or claudication. He does not have edema, or sudden weight gain. He denies lightheadedness, dizziness, syncopal or near syncopal episodes, and headaches. Intake Vital Signs 02/16/24 11:25 10/15/24 07:32 Height 5 ft 10 in 5 ft 10 in Weight: 198 lb BMI 28.4 BP 124/84 H Blood Pressure Location Lt brachial Position Sitting Respiration 18 Pulse 83 Pulse Source Monitor Pulse Oximetry (%) 97 Intake Visit Reasons: SEE NOTES Cutter And Presser Required: No Is patient in pain?: No Allergies No Known Allergies Allergy (Verified 10/15/24 15:08) Medications ???Medication ???Instructions ???Recorded ???Confirmed ???Type warfarin 2 mg tablet 6 mg PO SUTUTH 11/23/21 10/15/24 H istory warfarin 4 mg tablet 4 mg PO MOWEFRSA 11/23/21 10/15/24 History levothyroxine 150 mcg tablet 150 mcg PO QDAY 02/16/24 10/15/24 (more content not included)... Normal [facility] Chest PA and Lateralon 10-15 Chest PA and Lateral [facility] Imaging Services [address] [place] [address] Chest PA and Lateral MR#: [id number] Acct: [id number] Name: MATTHEW TRACY Rep #: [id number] : 1965 M 59 From: Andrew Lozada i, MD PCP: Dr. Roni Rodarte MD Status: REG CLI Study: Chest PA and Lateral Date of Exam: 10/15/24 Exam# [id number] Ordering Dr: Zuleyma Norman WIRE INSPECTOR WIRE INSPECTOR- C PROCEDURE: CHEST PA AND LATERAL 10/15/2024 REASON FOR EXAM: CARDIAC CATH TECHNIQUE: Frontal and lateral views of the chest. COMPARISON: CT chest performed on 08/01/2018. FINDINGS: Pacemaker is seen overlying the left chest. There are median sternotomy wires present, likely from prior CABG surgery. The cardiac silhouette is within normal limits. No focal consolidation is seen within the lungs. There is no pneumothorax. There are no acute osseous abnormality is present. RAD/Chest PA and Lateral IMPRESSION: No focal infiltrate or consolidation is seen within the lungs. No pneumothorax. Reading Location: [id number] CC: WIRE INSPECTOR-C Zuleyma Norman; Dr. Roni Rodarte MD Drawer In Hand: Signed Normal [facility] Chloride assayOrdered By: Sidney Norman on 10-15-2024 Chloride [Moles/Vol] 106 mmol/L 98-108 [facility] Eosinophil percentageOrdered By: Zuleyma Norman on 10-15-2024 Eosinophils/100 WBC (Bld) 5.9 % High 0-5 [facility] Erythrocyte distribution wid th ratioOrdered By: Zuleyma Norman on 10-15-2024 Erythrocyte distribution width (RBC) [Ratio] 15.1 % High 11.6-14.6 [facility] Erythrocyte distribution wid th standard deviationOrdered By: Zuleyma Norman on 10-15-2024 Erythrocyte distribution width (RBC) [Ratio] 51.8 fl High 35.1-43.9 [facility] Glomerular filtration rate ( GFR) estimation/1.73 sq m using serum, plasma, or whole bOrdered By: Zuleyma Norman on 10-15-2024 GFR/1.73 sq M.predicted among non-blacks MDRD (S/P/Bld) [Vol rate/Area] 69 mL/min/{1.73_m2} >60 [facility] Comment on above: mL/min/1.73m2 CKD-EP I Creatinine Equation (2020) Hematocrit Auto (Bld) [Volum e fraction]Ordered By: Zuleyma Norman on 10-15-2024 Hematocrit (Bld) [Volume fraction] 42.5 % 40-54 [facility] Hemoglobin measurementOrdere d By: Zuleyma Norman on 10-15-2024 Hemoglobin (Bld) [Mass/Vol] 14.3 g/dL 13.0-16.5 [facility] Immature granulocytes/100 WB C Auto (Bld)Ordered By: Zuleyma Norman on 10-15-2024 Immature granulocytes/100 WBC (Bld) 0.400 % 0.0-0.9 [facility] Comment on above: IG% - Immature Granu locytes (promyelocytes, myelocytes and metamyelocytes) > 1% indicates that a LEFT SHIFT is Present. International normalized rat io (INR) calculationOrdered By: Zuleyma Norman on 10-15-2024 INR Coag (Bld) [Relative time] 1.8 {INR} [facility] MCV (mean corpuscular volume ) determinationOrdered By: Zuleyma Norman on 10-15-2024 MCV (RBC) [Entitic vol] 92.6 fL 80-[address] [facility] Mean corpuscular hemoglobin (MCH) determinationOrdered By: Zuleyma Norman on 10-15-2024 MCH (RBC) [Entitic mass] 31.2 pg 27.0-32.0 [facility] Mean corpuscular hemoglobin concentration (MCHC) determinationOrdered By: Zuleyma Norman on 10-15-2024 MCHC (RBC) [Mass/Vol] 33.6 g/dL 32-36 [facility] Mean platelet volume determi nationOrdered By: Zuleyma Norman on 10-15-2024 Platelet mean volume (Bld) [Entitic vol] 10.6 fL 6.2-12.0 [facility] Monocyte percentageOrdered B y: Zuleyma Norman on 10-15-2024 Monocytes/100 WBC (Bld) 11.1 % High 0-[address] [facility] Neutrophil percentageOrdered By: Zuleyma Norman on 10-15-2024 Neutrophils/100 WBC (Bld) 53.8 % 47-70 [facility] Nucleated red blood cell per centageOrdered By: Zuleyma Norman on 10-15-2024 Nucleated RBC/100 WBC (Bld) [Ratio] 0 % 0-5 [facility] Partial Thromboplast Timeon 10-15-2024 aPTT Coag (Bld) [Time] 31.7 s Normal 24.1-36.2 [facility] Comment on above: Performed By: #### L 300.4310, L500.2500, L100.0100, L300.3900 ####[facility] [address] [place], [address] Platelet countOrdered By: Sidney Norman on 10-15-2024 Platelets (Bld) [#/Vol] 208 10*3/uL 150-450 [facility] Potassium measurement (mass/ volume)Ordered By: Zuleyma Norman on 10-15-2024 Potassium (Unsp spec) [Mass/Vol] 4.1 mmol/L 3.3-5.1 [facility] Prothrombin Time w/INRon INR Coag (PPP) [Relative time] 1.8 {INR} Normal [facility] Comment on above: Performed By: #### L 300.4310, L500.2500, L100.0100, L300.3900 ####[facility] [address] [place], [address] PT Coag (PPP) [Time] 21.3 s High 11.7-14.9 [facility] Comment on above: Performed By: #### L 300.4310, L500.2500, L100.0100, L300.3900 ####[facility] [address] [place], [address] Prothrombin timeOrdered By: Zuleyma Norman on 10-15-2024 PT Coag (PPP) [Time] 21.3 s High 11.7-14.9 [facility] RBC Auto (Bld) [#/Vol]Ordere d By: Zuleyma Norman on 10-15-2024 RBC (Bld) [#/Vol] 4.59 10*6/uL Low 4.6-6.2 [facility] Serum creatinine measurement (mass/volume)Ordered By: Zuleyma Norman on 10-15-2024 Creatinine [Mass/Vol] 1.20 mg/dL 0.70-1.20 [facility] Serum glucose measurement (m ass/volume)Ordered By: Zuleyma Norman on 10-15-2024 Glucose [Mass/Vol] 87 mg/dL 70-99 [facility] Serum or plasma calcium maynor urement (mass/volume)Ordered By: Zuleyma Norman on 10-15-2024 Calcium [Mass/Vol] 9.4 mg/dL 7.6-11.0 [facility] Serum or plasma urea nitroge n measurement (mass/volume)Ordered By: Zuleyma Norman on 10-15-2024 Urea nitrogen [Mass/Vol] 23 mg/dL High 4-19 [facility] Sodium levelOrdered By: Comfort Norman on 10-15-2024 Sodium [Moles/Vol] 139 mmol/L 133-145 [facility] White blood cell (WBC) count Ordered By: Zuleyma Norman on 10-15-2024 WBC (Bld) [#/Vol] 5.6 10*3/uL 4.4-11.0 [facility] Echo Complete W/ Contraston 09-28-2024 Echo Complete W/ Contrast [facility] [address] [place] [address] Echo Complete W/ Contrast 09/28/24 0802 MR#: [id number] Acct: [id number] Name: MATTHEW TRACY Rep #: [id number] : 1965 59 From: Brian Virk MD Attending Dr: SAMIA Odom Status: REG CLI Ordering Dr: Jeni Pina Date: 09/11 02/04 Location: [facility] Sex: M C Admitted: Reason For Study Reason For Study: Valve Replacement Procedure This was a 2D Doppler, Color Flow transthoracic echocardiogram. Myocardial strain analysis was performed in this exam to aid in the assessment of cardiac function. Contrast injection was performed. Exam performed in department. Left Ventricle Moderately dilated left ventricle. The global longitudinal strain = -3.2% (abnormal). The left ventricular ejection fraction is 15 %. Stage 1 diastolic dysfunction. There is severe global hypokinesis of the left ventricle. Right Ventricle Normal RV size. ICD or pacer leads identified within the right ventricle. Normal systolic function. Atria Normal left atrium. Normal right atrium. Mitral Valve Normal mitral valve. Tricuspid Valve Normal tricuspid valve. Mild (1+) tricuspid valve insufficiency. Pulmonary artery systolic pressure is 28 mmHg. Aortic Valve Peak aortic valve gradient 12 mmHg. Mean aortic valve gradient 6 mmHg. Bileaflet mechanical aortic valve. Pulmonic Valve Normal pulmonic valve. Great Vessels Normal aortic root. The pulmonary artery is normal size. Normal inferior vena cava. Pericardium/Pleural No pericardial effusion. Medication 22 gauge I.V. with prn adaptor inserted into right arm. Diluted definity 1ml given slow IV push to enhance endocardial definition. MMode/2D Measurements Calculations LVIDd: 6.3 cm IVSd: 0.95 cm LVOT diam: 2.2 cm LVIDs: 5.7 cm LVPWd: 1.1 cm RVDd: 4.8 cm FS: 8.9 % LVOT area: 3.8 cm2 Ao root diam: 3.8 cm LAV(MOD-bp): 58.9 ml LVAd ap4: 57.3 cm2 LAV(MOD-bp) Indexed: 29.5 ml/m2 LVLd ap4: 9.4 cm LAV(MOD-sp2): 64.9 ml EDV(MOD-sp4): 279.3 ml LAV(MOD-sp4): 53.0 ml EDV(sp4-el): 296.6 ml LVAs ap4: 52.1 cm2 LVLs ap4: 9.1 cm ESV(MOD-sp4): 237.3 ml ESV(sp4-el): 251.7 ml EF(MOD-sp4): 15.0 % EF(sp4-el): 15.2 % LVAd ap2: 56.9 cm2 SV(MOD-sp4): 42.0 ml SV(MOD-sp2): 66.1 ml LVLd ap2: 9.9 cm SI(MOD-sp4): 21.0 ml/m2 SI(MOD-sp2): 33.1 ml/m2 EDV(MOD-sp2): 267.4 ml EDV(sp2-el): 277.6 ml LVAs ap2: 48.1 cm2 LVLs ap2: 9.3 cm ESV(MOD-sp2): 201.3 ml ESV(sp2-el): 210.8 ml EF(MOD-sp2): 24.7 % SV(sp4-el): 44.9 ml LA dimension(2D): 4.7 cm LA A4 area: 18.2 cm2 RA A4 area: 19.7 cm2 TAPSE: 1.4 cm Time Measurements MV dec time: 0.16 sec Doppler Measurements Calculations MV E max sowmya: 48.2 cm/sec Lat Peak E' Sowmya: 3.1 cm/sec Med Peak E' Sowmya: 4.9 cm/sec MV A max sowmya: 73.8 cm/sec E/E' lat: 15.6 E/E' med: 9.8 MV E/A: 0.65 MV V2 max: 89.9 cm/sec MV P1/2t max sowmya: 73.1 cm/sec Ao V2 max: 173.6 cm/sec MV max P.2 mmHg MV P1/2t: 81.1 msec Ao max P.1 mmHg MV V2 mean: 48.4 cm/sec Ao V2 mean: 117.4 cm/sec MV mean P.1 mmHg MV dec slope: 264.0 cm/sec2 Ao mean P.5 mmHg MV V2 VTI: 25.9 cm MVA(P1/2t): 2.7 cm2 Ao V2 VTI: 35.4 cm AV (velocity ratio): 0.82 MVA(VTI): 4.3 cm2 SADE(I,D): 3.1 cm2 SADE(V,D): 3.6 cm2 LV V1 max: 162.4 cm/sec SV(LVOT): 111.4 ml TR max sowmya: 248.0 cm/sec LV V1 max P.6 mmHg TR max P.6 mmHg LV V1 mean P.2 mmHg LV V1 mean: 117.3 cm/sec LV V1 VTI: 29.2 cm ECHO/Echo Complete W/ Contrast Interpretation Summary Moderately dilated left ventricle. The global longitudinal strain = -3.2% (abnormal). The left ventricular ejection fraction is 15 %. Stage 1 diastolic dysfunction. Pulmonary artery systolic pressure is 28 mmHg. Contrast injection was performed. Ordering Physician: Jeni Pina Referring Physician: Jeni Pina Performed By: Charly Salazar RCS 09/28/24 1236 Date Brian Virk MD CC: Dr. Roni Rodarte MD; SAMIA Odom Date Dictated: (more content not included)... Normal [facility] PSA,Total- Diagnosticon PSA, DIAGNOSTIC 5.96 ng/mL High 0.0-4.0 [facility] Comment on above: Result Comment: This test was performed using the TPSA assay method for the [employer] chemistry system. Values obtained with different assay methods cannot be used interchangably. When changing PSA assays in the course of monitoring a patient, additional sequential testing should be carried out to confirm baseline values. Performed By: #### L 501.9940 #### [facility] [address] [place], [address] Ferritinon 06-15-2024 Ferritin [Mass/Vol] 27 ng/mL Normal 26-388 [facility] Comment on above: Order Comment: Order Date: 04/23/24Order Info: 3051-0 - P8VLnsxl Info: 3016-3 - TSHOrder Info: 2857-1 - PSAOrder Info: 2276-4 - FEROrder Info: 3024-7 - T4F Performed By: #### L 501.69191, L506.0400, L501.9520, L503.6550, L501.9910 ####[facility] [address] [place], [place], [phone] Free T3on 06-15-2024 Free T3 [Mass/Vol] 2.1 pg/mL Low 2.18-3.98 [facility] Comment on above: Order Comment: Order Date: 04/23/24 Order Info: 3051-0 - T3F Order Info: 301-3 - TSH Order Info: 2857-1 - PSA Order Info: 2275-09 - TREVER Order Info: 302-7 - T4F Performed By: #### L 501.98621, L506.0400, L501.9520, L503.6550, L501.9910 #### [facility] [address] [place], [place], [address] PSA,Total - Annual Screenon 06-15-2024 PSA,TOT SCREEN 4.78 ng/mL High 0.00-4.00 [facility] Comment on above: Order Comment: Order Date: 04/23/24 Order Info: 3051-0 - T3F Order Info: 3016-3 - TSH Order Info: 2857-1 - PSA Order Info: 2276-4 - TREVER Order Info: 3024-7 - T4F Result Comment: This test was performed using the TPSA assay method for the [employer] chemistry system. Values obtained with different assay methods cannot be used interchangably. When changing PSA assays in the course of monitoring a patient, additional sequential testing should be carried out to confirm baseline values. Performed By: #### L 501.11968, L506.0400, L501.9520, L503.6550, L501.9910 #### [facility] [address] [place], [place], [address] T4 Free Directon 06-15-2024 T4 FREE DIRECT 1.04 ng/dL Normal 0.76-1.46 [facility] Comment on above: Order Comment: Order Date: 04/23/24Order Info: 3051-0 - L2KSmacg Info: 3016-3 - TSHOrder Info: 285-1 - PSAOrder Info: 227-4 - FEROrder Info: 3024-7 - T4F Performed By: #### L 501.96098, L506.0400, L501.9520, L503.6550, L501.9910 ####[facility] [address] [place], [place], [address] Thyroid Stim Hormone (TSH)on 06-15-2024 TSH 2.540 uIU/mL Normal 0.358-3.740 [facility] Comment on above: Order Comment: Order Date: 04/23/24 Order Info: 3051-0 - T3F Order Info: 3016-3 - TSH Order Info: 2856- - PSA Order Info: 2275-4 - TREVER Order Info: 3024-7 - T4F Performed By: #### L 501.75922, L506.0400, L501.9520, L503.6550, L501.9910 #### [facility] [address] [place], [place], [address] ALLIED HEALTHon 05-26-2024 ALLIED HEALTH HNO ID: [id number] Author: BRITTANY RUDD RT(R) Service: Radiology Author Type: Technologist Type: Allied Health Filed: 05/26/2024 08:23 Note Text: Radiology Service Progress Note PATIENT NAME: Matthew Tracy DATE OF SERVICE: May 26, 2024 TIME: 8:23 AM PATIENT IDENTITY VERIFICATION COMPLETED USING TWO (2) IDENTIFIERS: Name and Date of confirmed by patient verbally and Name and Date of confirmed by identification band. FALL SCREENING: Has the patient had 2 falls in the last year or 1 fall with injury or currently using an Ambulatory Assistive Device (Walker, Cane, Wheelchair, Crutches, etc.)? Emergency Room Patient: Screened in ED PATIENT GENDER DATA: Male PATIENT RELEVANT IMPLANT DATA REVIEWED: Not Applicable PATIENT PRESENTS WITH AN IMPLANTABLE OR ATTACHED COMPUTER SYSTEMS INTEGRATOR: No RADIOLOGY DEPARTMENT: General X-ray: Exam(s) Completed: Lower Extremity X-Ray(s): Foot, Left PERIPHERAL IV DATA: Not applicable SIGNED BY: RT Abdi(R) May 26, 2024 8:23 AM Normal [facility] ED NOTEon 05-26-2024 ED NOTE HNO ID: [id number] Author: HOWIE ESTEBAN RN Service: Emergency Medicine Author Type: Registered Nurse Type: ED Notes Filed: 05/26/2024 07:52 Note Text: Pt to ED with L foot pain after trip on step last night. Pt sts pain with bearing weight. Normal [facility] ED PROV NOTEon 05-26-2024 ED PROV NOTE HNO ID: [id number] Author: KATHY DAS MD Service: Emergency Medicine Author Type: Physician Type: ED Provider Notes Filed: 05/26/2024 08:35 Note Text: ED Provider Note Patient Name: Matthew Tracy : 1965 SERVICE DATE: 05/26/24 History Patient presents with: Pain (foot): L HPI Matthew Tracy 59 year old male injured his left foot last night at about 2100 hrs. when he was walking up steps missed of steps and could have hit his lateral left foot against the stairs. He had some swelling and some redness I was still having some pain this morning so decided come in to get an x-ray. No numbness or tingling no other injuries complaints or concerns no syncope or presyncope. PAST MEDICAL HISTORY Diagnosis Date Heart disease Heart valve replaced by other means 2002 Thyroid disease Umbilical hernia 04/18/14 Ventral hernia 04/18/14 PAST SURGICAL HISTORY Procedure Laterality Date CHOLECYSTECTOMY [...] Stroke Paternal Grandfather Ischemic Heart Disease Father Social History Tobacco Use Smoking status: Never Smokeless tobacco: Never Substance and Sexual Activity Alcohol use: Yes Comment: 1 A WEEK Drug use: No Sexual activity: Yes Partners: Female ALLERGIES No Known Allergies Review of Systems Constitutional: Negative. Skin: Positive for color change. Neurological: Negative. Hematological: Negative. Physical Exam Vitals [05/26/24 0752] BP Pulse Temp Temp src Resp SpO2 Weight Height 135/84 84 36.6 ?C (97.9 ?F) Oral 18 97 % 83.9 kg (185 lb) 1.753 m (5' 9") Physical Exam Nursing note reviewed. Constitutional: General: He is not in acute distress. Appearance: Normal appearance. He is not ill-appearing, toxic-appearing or diaphoretic. HENT: Head: Normocephalic and atraumatic. Musculoskeletal: General: Swelling and tenderness present. Normal range of motion. Legs: Skin: Capillary Refill: Capillary refill takes less than 2 seconds. Findings: Bruising present. Neurological: General: No focal deficit present. Mental Status: He is alert and oriented to person, place, and time. Cranial Nerves: No cranial nerve deficit. Sensory: No sensory deficit. Motor: No weakness. Diagnostic Testing ED Labs Ordered and Reviewed - No data to display Procedures ED Course / Clinical Impression Clinical Impressions as of 05/26/24 0817 Closed nondisplaced fracture of fifth metatarsal bone of left foot, initial encounter MDM / Disposition / Plan Differential Diagnoses - Fifth metatarsal fracture is more likely for the following reason(s): consistent with imaging - Other injuries is less likely for the following reason(s): HANDP not suggestive Management Radiology Reports XR FOOT GENERAL 3V AP/LAT/OBL LEFT Final Result IMPRESSION: Acute transverse intra-articular fracture base left fifth metatarsal. Drawer In Hand: PSCB Transcribe Date/Time: May 26 2024 8:25A Dictated by : EMMY QUIROZ MD This examination was interpreted and the report reviewed and electronically signed by: EMMY QUIROZ MD on May 26 2024 8:26AM EST Re-evaluation vital signs in acceptable range Kathy Das MD Disposition The patient was discharged. Counseled patient regarding radiology results and suspected diagnosis. SIGNATURE: Kathy Das MD - KATHY DAS 05/26/24 0835 Normal [facility] XR FOOT 3V AP/LAT/OBL LTon 1 07-27-2023 XR FOOT 3V AP/LAT/OBL LT * * *Final Report* * * DATE OF EXAM: May 26 2024 8:22AM AWX [id number] - XR FOOT 3V AP/LAT/OBL LT / PROCEDURE REASON: Foot trauma, no prior imaging * * * * Physician Interpretation * * * * XR FOOT 3V AP/LAT/OBL LT HISTORY: 59 years old Clinical information: Foot trauma, no prior imaging L foot pain after trip on step last night. Pt sts pain with bearing weight. Pain swelling 5th MT TECHNIQUE: Images: XR FOOT 3V AP/LAT/OBL LT Comparison: 08/17/2022. RESULT: Acute transverse intra-articular fracture base left fifth metatarsal. No evidence of dislocation. Internal fixation rods involving the distal left tibia IMPRESSION: Acute transverse intra-articular fracture base left fifth metatarsal. Drawer In Hand: PSCB Transcribe Date/Time: May 26 2024 8:25A Dictated by : EMMY QUIROZ MD This examination was interpreted and the report reviewed and electronically signed by: EMMY QUIROZ MD on May 26 2024 8:26AM EST [id number] Normal [facility] CBC W/Diff, Automatedon 09-0 Absolute Lymph 1.03 X10 3/uL Normal 0.83-4.51 [facility] Comment on above: Order Comment: [facility] ORDERED CMP, CBCD, LIPID, MIACRE URINEDR YANA RENAL, CBCOrder Date: 11/15/23Order Info: 0184-1 - CBCD Performed By: #### L 100.0100 ####[facility] [address] [place], [address] Absolute Neut 2.2 X10 3/uL Normal 2.0-7.7 [facility] Comment on above: Order Comment: [facility] ORDERED CMP, CBCD, LIPID, MIACRE URINEDR YANA RENAL, CBCOrder Date: 11/15/23Order Info: 0184-1 - CBCD Performed By: #### L 100.0100 ####[facility] [address] [place], [address] Basophils/100 WBC (Bld) 0.9 % Normal 0-[address] [facility] Comment on above: Order Comment: I[facility] ORDERED CMP, CBCD, LIPID, MIACRE URINEDR YANA RENAL, CBCOrder Date: 11/15/23Order Info: 183- - CBCD Performed By: #### L 100.0100 ####[facility] [address] [place], [address] Eosinophils/100 WBC (Bld) 9.8 % High 0-5 [facility] Comment on above: Order Comment: ITH ORDERED CMP, CBCD, LIPID, MIACRE URINEDR YANA RENAL, CBCOrder Date: 11/15/23Order Info: 183-06 - CBCD Performed By: #### L 100.0100 ####[facility] [address] [place], [address] Erythrocyte distribution width (RBC) [Ratio] 14.9 % High 11.6-14.6 [facility] Comment on above: Order Comment: ITH ORDERED CMP, CBCD, LIPID, MIACRE URINEDR YANA RENAL, CBCOrder Date: 11/15/23Order Info: 183-06 - CBCD Performed By: #### L 100.0100 ####[facility] [address] [place], [address] Hematocrit (Bld) [Volume fraction] 45.5 % Normal 40-54 [facility] Comment on above: Order Comment: ITH ORDERED CMP, CBCD, LIPID, MIACRE URINEDR YANA RENAL, CBCOrder Date: 11/15/23Order Info: 183- - CBCD Performed By: #### L 100.0100 ####[facility] [address] [place], [address] Hemoglobin (Bld) [Mass/Vol] 15.2 g/dL Normal 13.0-16.5 [facility] Comment on above: Order Comment: ITH ORDERED CMP, CBCD, LIPID, MIACRE URINEDR YANA RENAL, CBCOrder Date: 11/15/23Order Info: 183-06 - CBCD Performed By: #### L 100.0100 ####[facility] [address] [place], [address] IG% 0.500 Normal 0.0-0.9 [facility] Comment on above: Order Comment: ITH ORDERED CMP, CBCD, LIPID, MIACRE URINEDR YANA RENAL, CBCOrder Date: 11/15/23Order Info: 183-06 - CBCD Result Comment: IG% - Immature Granulocytes (promyelocytes, myelocytes and metamyelocytes) > 1% indicates that a LEFT SHIFT is Present. Performed By: #### L 100.0100 ####[facility] [address] [place], [address] Lymphocytes/100 WBC (Bld) 24.1 % Normal 19-41 [facility] Comment on above: Order Comment: ITH ORDERED CMP, CBCD, LIPID, MIACRE URINEDR YANA RENAL, CBCOrder Date: 11/15/23Order Info: 183-06 - CBCD Performed By: #### L 100.0100 ####[facility] [address] [place], [address] MCH (RBC) [Entitic mass] 32.1 pg High 27.0-32.0 [facility] Comment on above: Order Comment: ITH ORDERED CMP, CBCD, LIPID, MIACRE URINEDR YANA RENAL, CBCOrder Date: 11/15/23Order Info: 183-06 - CBCD Performed By: #### L 100.0100 ####[facility] [address] [place], [address] MCHC (RBC) [Mass/Vol] 33.4 g/dL Normal 32-36 [facility] Comment on above: Order Comment: ITH ORDERED CMP, CBCD, LIPID, MIACRE URINEDR YANA RENAL, CBCOrder Date: 11/15/23Order Info: 183-06 - CBCD Performed By: #### L 100.0100 ####[facility] [address] [place], [address] MCV (RBC) [Entitic vol] 96.0 fL High 80-[address] [facility] Comment on above: Order Comment: ITH ORDERED CMP, CBCD, LIPID, MIACRE URINEDR YANA RENAL, CBCOrder Date: 11/15/23Order Info: 183-06 - CBCD Performed By: #### L 100.0100 ####[facility] [address] [place], [address] Monocytes/100 WBC (Bld) 12.6 % High 0-[address] [facility] Comment on above: Order Comment: ITH ORDERED CMP, CBCD, LIPID, MIACRE URINEDR YANA RENAL, CBCOrder Date: 11/15/23Order Info: 183-06 - CBCD Performed By: #### L 100.0100 ####[facility] [address] [place], [address] Neutrophils/100 WBC (Bld) 52.1 % Normal 47-70 [facility] Comment on above: Order Comment: ITH ORDERED CMP, CBCD, LIPID, MIACRE URINEDR YANA RENAL, CBCOrder Date: 11/15/23Order Info: 183-06 - CBCD Performed By: #### L 100.0100 ####[facility] [address] [place], [address] Nucleated RBC (Bld) [#/Vol] 0 10*3/uL Normal 0-5 [facility] Comment on above: Order Comment: ITH ORDERED CMP, CBCD, LIPID, MIACRE URINEDR YANA RENAL, CBCOrder Date: 11/15/23Order Info: 183- - CBCD Performed By: #### L 100.0100 ####[facility] [address] [place], [address] Platelet mean volume (Bld) [Entitic vol] 10.3 fL Normal 6.2-12.0 [facility] Comment on above: Order Comment: ITH ORDERED CMP, CBCD, LIPID, MIACRE URINEDR YANA RENAL, CBCOrder Date: 11/15/23Order Info: 183-06 - CBCD Performed By: #### L 100.0100 ####[facility] [address] [place], [address] Platelets (Bld) [#/Vol] 193 10*3/uL Normal 150-450 [facility] Comment on above: Order Comment: ITH ORDERED CMP, CBCD, LIPID, MIACRE URINEDR YANA RENAL, CBCOrder Date: 11/15/23Order Info: 183-06 - CBCD Performed By: #### L 100.0100 ####[facility] [address] [place], [address] RBC (Bld) [#/Vol] 4.74 10*6/uL Normal 4.6-6.2 [facility] Comment on above: Order Comment: ITH ORDERED CMP, CBCD, LIPID, MIACRE URINEDR YANA RENAL, CBCOrder Date: 11/15/23Order Info: 183-06 - CBCD Performed By: #### L 100.0100 ####[facility] [address] [place], [address] RDW SD 53.0 fl High 35.1-43.9 [facility] Comment on above: Order Comment: ITH ORDERED CMP, CBCD, LIPID, MIACRE URINEDR YANA RENAL, CBCOrder Date: 11/15/23Order Info: 183-06 - CBCD Performed By: #### L 100.0100 ####[facility] [address] [place], [address] WBC (Bld) [#/Vol] 4.3 10*3/uL Low 4.4-11.0 [facility] Comment on above: Order Comment: ITH ORDERED CMP, CBCD, LIPID, MIACRE URINEDR YANA RENAL, CBCOrder Date: 11/15/23Order Info: 0184-1 - CBCD Performed By: #### L 100.0100 ####[facility] [address] [place], [address] Comprehensive Metabolic Prof ilon 02-18-2024 Albumin [Mass/Vol] 3.6 g/dL Normal 3.2-5.0 [facility] Comment on above: Order Comment: ITH ORDERED CMP, CBCD, LIPID, MIACRE URINEDR YANA RENAL, CBCOrder Date: 11/15/23Order Info: 785-1 - CMPOrder Info: [id number] - LIPID Performed By: #### L 500.4100, L500.4050, L502.0250 ####[facility] [address] [place], [address] Albumin/Globulin [Mass ratio] 1.0 {ratio} Normal 0.9-2.4 [facility] Comment on above: Order Comment: ITH ORDERED CMP, CBCD, LIPID, MIACRE URINEDR YANA RENAL, CBCOrder Date: 11/15/23Order Info: 785-1 - CMPOrder Info: [id number] - LIPID Performed By: #### L 500.4100, L500.4050, L502.0250 ####[facility] [address] [place], [address] ALK P 99 U/L Normal 45-117 [facility] Comment on above: Order Comment: ITH ORDERED CMP, CBCD, LIPID, MIACRE URINEDR YANA RENAL, CBCOrder Date: 11/15/23Order Info: 785-1 - CMPOrder Info: [id number] - LIPID Performed By: #### L 500.4100, L500.4050, L502.0250 ####[facility] [address] [place], [address] ALT [Catalytic activity/Vol] 18 U/L Normal 16-61 [facility] Comment on above: Order Comment: ITH ORDERED CMP, CBCD, LIPID, MIACRE URINEDR YANA RENAL, CBCOrder Date: 11/15/23Order Info: 785-06 - CMPOrder Info: - LIPID Performed By: #### L 500.4100, L500.4050, L502.0250 ####[facility] [address] [place], [address] AST [Catalytic activity/Vol] 23 U/L Normal 15-37 [facility] Comment on above: Order Comment: ITH ORDERED CMP, CBCD, LIPID, MIACRE URINEDR YANA RENAL, CBCOrder Date: 11/15/23Order Info: 785-06 - CMPOrder Info: - LIPID Performed By: #### L 500.4100, L500.4050, L502.0250 ####[facility] [address] [place], [address] Bilirubin [Mass/Vol] 0.60 mg/dL Normal 0.20-1.00 [facility] Comment on above: Order Comment: ITH ORDERED CMP, CBCD, LIPID, MIACRE URINEDR YANA RENAL, CBCOrder Date: 11/15/23Order Info: 785-06 - CMPOrder Info: - LIPID Result Comment: For patients on eltrombopag therapy, use of Dimension [place] TBIL is not recommended. Performed By: #### L 500.4100, L500.4050, L502.0250 ####[facility] [address] [place], [address] BUN/CRE 17.2 RATIO Normal 10-20 [facility] Comment on above: Order Comment: ITH ORDERED CMP, CBCD, LIPID, MIACRE URINEDR YANA RENAL, CBCOrder Date: 11/15/23Order Info: 785-06 - CMPOrder Info: - LIPID Performed By: #### L 500.4100, L500.4050, L502.0250 ####[facility] [address] [place], [address] CA,Total 9.4 mg/dL Normal 8.5-10.1 [facility] Comment on above: Order Comment: ITH ORDERED CMP, CBCD, LIPID, MIACRE URINEDR YANA RENAL, CBCOrder Date: 11/15/23Order Info: 785- - CMPOrder Info: [id number] - LIPID Performed By: #### L 500.4100, L500.4050, L502.0250 ####[facility] [address] [place], [address] Chloride [Moles/Vol] 108 mmol/L High 98-107 [facility] Comment on above: Order Comment: ITH ORDERED CMP, CBCD, LIPID, MIACRE URINEDR YANA RENAL, CBCOrder Date: 11/15/23Order Info: [id number] - CMPOrder Info: - LIPID Performed By: #### L 500.4100, L500.4050, L502.0250 ####[facility] [address] [place], [address] CO2 [Moles/Vol] 27.0 mmol/L Normal 21.0-32.0 [facility] Comment on above: Order Comment: ITH ORDERED CMP, CBCD, LIPID, MIACRE URINEDR YANA RENAL, CBCOrder Date: 11/15/23Order Info: [id number] - CMPOrder Info: - LIPID Performed By: #### L 500.4100, L500.4050, L502.0250 ####[facility] [address] [place], [address] Creatinine [Mass/Vol] 1.22 mg/dL Normal 0.70-1.30 [facility] Comment on above: Order Comment: ITH ORDERED CMP, CBCD, LIPID, MIACRE URINEDR YANA RENAL, CBCOrder Date: 11/15/23Order Info: 785- - CMPOrder Info: - LIPID Result Comment: The validity of the calculated GFR GFRAA in patients over 70 years has not been determined. Clinical correlation is essential. Performed By: #### L 500.4100, L500.4050, L502.0250 ####[facility] [address] [place], [address] EST GFR - AA 78 mL/min Normal >60 [facility] Comment on above: Order Comment: ITH ORDERED CMP, CBCD, LIPID, MIACRE URINEDR YANA RENAL, CBCOrder Date: 11/15/23Order Info: [id number] - CMPOrder Info: [id number] - LIPID Result Comment: Afri can Cymraes GFR Calc Performed By: #### L 500.4100, L500.4050, L502.0250 ####[facility] [address] [place], [address] GAP 3 Low 5-15 [facility] Comment on above: Order Comment: ITH ORDERED CMP, CBCD, LIPID, MIACRE URINEDR YANA RENAL, CBCOrder Date: 11/15/23Order Info: [id number] - CMPOrder Info: [id number] - LIPID Performed By: #### L 500.4100, L500.4050, L502.0250 ####[facility] [address] [place], [address] GFR/1.73 sq M.predicted among non-blacks MDRD (S/P/Bld) [Vol rate/Area] 64 mL/min/{1.73_m2} Normal >60 [facility] Comment on above: Order Comment: ITH ORDERED CMP, CBCD, LIPID, MIACRE URINEDR YANA RENAL, CBCOrder Date: 11/15/23Order Info: [id number] - CMPOrder Info: [id number] - LIPID Result Comment: Non- GFR Calc Performed By: #### L 500.4100, L500.4050, L502.0250 ####[facility] [address] [place], [address] Globulin (S) [Mass/Vol] 3.7 g/dL Normal 2.2-4.2 [facility] Comment on above: Order Comment: ITH ORDERED CMP, CBCD, LIPID, MIACRE URINEDR YANA RENAL, CBCOrder Date: 11/15/23Order Info: [id number] - CMPOrder Info: - LIPID Performed By: #### L 500.4100, L500.4050, L502.0250 ####[facility] [address] [place], [address] Glucose [Mass/Vol] 100 mg/dL Normal 74-106 [facility] Comment on above: Order Comment: ITH ORDERED CMP, CBCD, LIPID, MIACRE URINEDR YANA RENAL, CBCOrder Date: 11/15/23Order Info: [id number] - CMPOrder Info: - LIPID Result Comment: Fast ing Glucose result from 100 to 125 mg/dL suggests IMPAIRED HOMEOSTASIS per A.D.A. criteria. Performed By: #### L 500.4100, L500.4050, L502.0250 ####[facility] [address] [place], [address] Potassium [Moles/Vol] 4.1 mmol/L Normal 3.5-5.1 [facility] Comment on above: Order Comment: ITH ORDERED CMP, CBCD, LIPID, MIACRE URINEDR YANA RENAL, CBCOrder Date: 11/15/23Order Info: [id number] - CMPOrder Info: - LIPID Performed By: #### L 500.4100, L500.4050, L502.0250 ####[facility] [address] [place], [address] Sodium [Moles/Vol] 138 mmol/L Normal 136-145 [facility] Comment on above: Order Comment: ITH ORDERED CMP, CBCD, LIPID, MIACRE URINEDR YANA RENAL, CBCOrder Date: 11/15/23Order Info: [id number] - CMPOrder Info: [id number] - LIPID Performed By: #### L 500.4100, L500.4050, L502.0250 ####[facility] [address] [place], [address] T PROT 7.3 g/dL Normal 6.4-8.2 [facility] Comment on above: Order Comment: ITH ORDERED CMP, CBCD, LIPID, MIACRE URINEDR YANA RENAL, CBCOrder Date: 11/15/23Order Info: [id number] - CMPOrder Info: [id number] - LIPID Performed By: #### L 500.4100, L500.4050, L502.0250 ####[facility] [address] [place], [address] Urea nitrogen [Mass/Vol] 21 mg/dL High 7- [facility] Comment on above: Order Comment: ITH ORDERED CMP, CBCD, LIPID, MIACRE URINEDR YANA RENAL, CBCOrder Date: 11/15/23Order Info: [id number] - CMPOrder Info: [id number] - LIPID Performed By: #### L 500.4100, L500.4050, L502.0250 ####[facility] [address] [place], [address] Lipid Profileon 02-18-2024 Cholesterol [Mass/Vol] 140 mg/dL Normal 200 [facility] Comment on above: Order Comment: ITH ORDERED CMP, CBCD, LIPID, MIACRE URINEDR YANA RENAL, CBCOrder Date: 11/15/23Order Info: [id number] - CMPOrder Info: [id number] - LIPID Result Comment: <200 mg/dL Desirable 200-240 mg/dL Borderline >240 mg/dL High Risk Performed By: #### L 500.4100, L500.4050, L502.0250 ####[facility] [address] [place], [address] Cholesterol in HDL [Mass/Vol] 62 mg/dL Normal [facility] Comment on above: Order Comment: ITH ORDERED CMP, CBCD, LIPID, MIACRE URINEDR YANA RENAL, CBCOrder Date: 11/15/23Order Info: [id number] - CMPOrder Info: - LIPID Result Comment: The drugs N-Acetylcysteine and Metamizole may falsely depress this assay. Reference Range HDL <40 mg/dL Low HDL Cholesterol HDL >or= 60 mg/dL High HDL Cholesterol Performed By: #### L 500.4100, L500.4050, L502.0250 ####[facility] [address] [place], [address] Cholesterol in LDL [Mass/Vol] 64 mg/dL Normal 0-130 [facility] Comment on above: Order Comment: ITH ORDERED CMP, CBCD, LIPID, MIACRE URINEDR YANA RENAL, CBCOrder Date: 11/15/23Order Info: [id number] - CMPOrder Info: - LIPID Performed By: #### L 500.4100, L500.4050, L502.0250 ####[facility] [address] [place], [address] Cholesterol in VLDL [Mass/Vol] 14 mg/dL Normal 5-40 [facility] Comment on above: Order Comment: ITH ORDERED CMP, CBCD, LIPID, MIACRE URINEDR YANA RENAL, CBCOrder Date: 11/15/23Order Info: [id number] - CMPOrder Info: - LIPID Performed By: #### L 500.4100, L500.4050, L502.0250 ####[facility] [address] [place], [address] Triglyceride [Mass/Vol] 68 mg/dL Normal [facility] Comment on above: Order Comment: ITH ORDERED CMP, CBCD, LIPID, MIACRE URINEDR YANA RENAL, CBCOrder Date: 11/15/23Order Info: [id number] - CMPOrder Info: - LIPID Result Comment: The drugs N-Acetylcysteine and Metamizole may falsely depress this assay. Serum Triglycerides Reference Interval Normal <150 mg/dL Borderline high 150 - 199 mg/dL High 200 - 499 mg/dL Very High > or = 500 mg/dL Performed By: #### L 500.4100, L500.4050, L502.0250 ####[facility] [address] [place], [address] Microalb:Creat Ratio,Random URon 02-18-2024 Creatinine [Mass/Vol] 127.00 mg/dL Normal NO RAN GE EST. [facility] Comment on above: Order Comment: ITH ORDERED CMP, CBCD, LIPID, MIACRE URINEDR YANA RENAL, CBCOrder Date: 11/15/23Order Info: [id number] - MIACRE Performed By: #### L 500.4100, L500.4050, L502.0250 ####[facility] [address] [place], [address] MALB:CRE 4.9 mg/g CRE Normal <30 mg/g CRE [facility] Comment on above: Order Comment: ITH ORDERED CMP, CBCD, LIPID, MIACRE URINEDR HENSLEY RENAL, CBCOrder Date: 11/15/23Order Info: [id number] - MIACRE Performed By: #### L 500.4100, L500.4050, L502.0250 ####[facility] [address] [place], [address] MICROALBUMIN,UR 6.2 mg/L Normal NO RANGE EST. [facility] Comment on above: Order Comment: ITH ORDERED CMP, CBCD, LIPID, MIACRE URINEDR HENSLEY RENAL, CBCOrder Date: 11/15/23Order Info: [id number] - MIACRE Performed By: #### L 500.4100, L500.4050, L502.0250 ####[facility] [address] [place], [address] Phosphoruson 02-18-2024 Phosphate [Mass/Vol] 3.1 mg/dL Normal 2.5-4.9 [facility] Comment on above: Order Comment: ITH ORDERED CMP, CBCD, LIPID, MIACRE URINEDR YANA RENAL, CBCOrder Date: 11/15/23Order Info: [id number] - CMPOrder Info: [id number] - LIPID Performed By: #### L 501.2300 ####[facility] [address] [place], [address] Cardiology Visit Reporton Cardiology Visit Report [facility] [address] [place] [address] OFFICE VISIT Date of Service: 02/16/24 MR#: [id number] Acct: [id number] Name: MATTHEW TRACY Rep #: [id number] : 1965 Provider: SAMIA Hurtado Age/Sex: 58/M [place] [facility] Status: Signed HPI HPI History of Present Illness Details: Matthew Tracy is an 57-year-old white male who presents today for outpatient follow-up. He has a history of aortic valve replacement (2002: [facility]: Mechanical ON X valve), ascending aortic root repair (2003: [facility]: 30 mm Hemashield graft), conduction system disorder, PSVT, PVT, status post pacemaker mediated induced cardiomyopathy, status post upgrade to biventricular permanent pacemaker, and hyperlipidemia. His generator change was on 09/2021. From a cardiac standpoint, patient is doing well. He does not have any chest discomfort/heaviness/ti ghtness. His exercise tolerance is stable for his age. He does not have any worsening symptoms of shortness of breath. He denies any PND. He does not have any orthopnea. He does not have any symptoms of congestive heart failure. He does not have any palpitations that he is aware of. He does not have any lightheadedness or dizziness. He does not have any near-syncope or syncope. He does not have any lower extremity edema. He does not have any symptoms of claudication. Intake Vital Signs 03/18/23 13:49 02/16/24 11:25 Height 5 ft 10 in 5 ft 10 in Weight: 193 lb BMI 27.6 BP 125/81 H Blood Pressure Location Lt brachial Position Sitting Respiration 16 Pulse 100 Pulse Source NIBP Pulse Oximetry (%) 94 Oxygen Delivery Method room air Intake Visit Reasons: 1 Y FU/PREV PFM Cutter And Presser Required: No Accompanied by: Self Is patient in pain?: No Allergies No Known Allergies Allergy (Verified 02/16/24 11:27) Medications ???Medication ???Instructions ???Recorded ???Confirmed ???Type warfarin 2 mg tablet 6 mg PO SUTUTH 11/23/21 02/16/24 History warfarin 4 mg tablet 4 mg PO MOWEFRSA 11/23/21 02/16/24 History levothyroxine 150 mcg tablet 150 mcg PO QDAY 02/16/24 02/16/24 History Have you fallen in the past year?: No PFSH Medical History Non compliance with medical treatment Dyspepsia Pure hypercholesterolemia Nonsustained ventricular tachycardia Wide-complex tachycardia Dizziness and giddiness Other specified hypotension Abnormal findings on diagnostic imaging of heart and coronary circulation Cardiomyopathy in other diseases classified elsewhere Third degree atrioventricular block determined by electrocardiography Other prison (current) drug therapy Thoracic aortic aneurysm without 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 Cardiomyopathy PSVT (paroxysmal supraventricular tachycardia) Conduction disorder of the heart Aortic valve disorder Surgical History History of mechanical aortic valve replacement ( 07/31/02) history ORIFLeft Tib/Fib irrigation and debridement tibia History of tonsillectomy History of cholecystectomy Presence of permanent cardiac pacemaker H/O aortic root repair ( 07/31/02) S/P aortic valve replacement with metallic valve ( 07/31/02) Family History Father Hypertension Social History household members: spouse Smoking Status: Never smoker alcohol intake: current alcohol intake frequency: holidays/special occasions only caffeine: Yes Type: tea ROS Const Const: Negative for fatigue, weakness, headache(s) or frequent falls Eyes Eyes: Negative for blurry vision or double vision ENT ENT: Negative for headache(s), dizziness, Nosebleed/epistaxis or balance problems Cardio Chest Pain: No Palpitations: No Edema: None Muscle aches with walking: None Resp Respiratory: Negative for SOB with activity, SOB at rest, SOB orthopnea SOB lying down, Cough or paroxysmal nocturnal dyspnea GI GI: Negative nausea, vomiting or black,tarry stools : Negative for hematuria Musc Musc: Positive for joint pain; Negative for muscle aches/ myalgia, muscle weakness or balance problems Neuro Neuro: Negative for dizziness, lightheadedness, near syncope, syncope, frequent falls, headache(s), weakness, blurry vision or double vision Endo Endo: Negative for fatigue Cardiology Exam Const Appearance: cooperative and no acute distress Nutritional Appearance: overweight Orientation: alert and oriented x3 Head Head: normal to inspection Ears: hearing grossly normal bilaterally Nose: external nose normal Face and Sinus: face symmetric Eyes General: a (more content not included)... Normal [facility] Absolute lymphocyte countOrd ered By: Lorenzo Pollo on 08-27-2023 Lymphocytes Auto (Unsp spec) [#/Vol] 0.71 10*3/uL 0.83-4.51 [facility] Automated lymphocyte count a s percentage of total leukocytesOrdered By: Lorenzo Pollo on 08-27-2023 Lymphocytes/100 WBC Auto (Unsp spec) 13.1 % 19-41 [facility] Basophil percentageOrdered B y: Lorenzo Pollo on 08-27-2023 Basophils/100 WBC (Bld) 0.9 % 0-[address] [facility] Bilirubin [Mass/Vol] 0.90 mg/dL 0.20-1.00 [facility] Comment on above: For patients on eltr ombopag therapy, use of Dimension [place] TBIL is not recommended. Chloride [Moles/Vol] 109 mmol/L 98-107 [facility] Eosinophils/100 WBC (Bld) 7.0 % 0-5 [facility] Glucose [Mass/Vol] 82 mg/dL 74-106 [facility] Hemoglobin (Bld) [Mass/Vol] 15.9 g/dL 13.0-16.5 [facility] Monocytes/100 WBC (Bld) 10.3 % 0-[address] [facility] Neutrophils (Bld) [#/Vol] 3.7 10*3/uL 2.0-7.7 [facility] Neutrophils/100 WBC (Bld) 68.5 % 47-70 [facility] Potassium [Moles/Vol] 4.3 mmol/L 3.5-5.1 [facility] Comment on above: Slight Hemolysis, Re sult may be falsely increased. Protein [Mass/Vol] 7.6 g/dL 6.4-8.2 [facility] Sodium [Moles/Vol] 141 mmol/L 136-145 [facility] WBC (Bld) [#/Vol] 5.4 10*3/uL 4.4-11.0 [facility] Determination of erythrocyte mean corpuscular volume (MCV)Ordered By: Lorenzo Abad on 08-27-2023 MCV (RBC) [Entitic vol] 96.9 fL 80-[address] [facility] Erythrocyte distribution wid th ratioOrdered By: Lorenzo Abad on 08-27-2023 Erythrocyte distribution width (RBC) [Ratio] 15.9 % 11.6-14.6 [facility] Erythrocyte distribution wid th standard deviationOrdered By: Lorenzo Abad on 08-27-2023 Erythrocyte distribution width (RBC) [Entitic vol] 56.6 fL 35.1-43.9 [facility] Hematocrit Auto (Bld) [Volum e fraction]Ordered By: Lorenzo Abad on 08-27-2023 Hematocrit (Bld) [Volume fraction] 46.7 % 40-54 [facility] Immature granulocytes/100 WB C Auto (Bld)Ordered By: Lorenzo Abad on 08-27-2023 Immature granulocytes/100 WBC (Bld) 0.200 % 0.0-0.9 [facility] Comment on above: IG% - Immature Granu locytes (promyelocytes, myelocytes and metamyelocytes) > 1% indicates that a LEFT SHIFT is Present. Laboratory - Chemistry and C hemistry - challengeOrdered By: Lorenzo Abad on 08-27-2023 Albumin/Globulin [Mass ratio] 0.9 {ratio} 0.9-2.4 [facility] ALP [Catalytic activity/Vol] 85 U/L 45-117 [facility] ALT [Catalytic activity/Vol] 27 U/L 16-61 [facility] CO2 [Moles/Vol] 29.0 mmol/L 21.0-32.0 [facility] Globulin (S) [Mass/Vol] 3.9 g/dL 2.2-4.2 [facility] Magnesium [Mass/Vol] 2.2 mg/dL 1.6-2.6 [facility] Comment on above: Slight Hemolysis, Re sult may be falsely increased. Urea nitrogen/Creatinine [Mass ratio] 12.9 mg/mg 10-20 [facility] Laboratory - Hematology and Cell countsOrdered By: Lorenzo Abad on 08-27-2023 MCH (RBC) [Entitic mass] 33.0 pg 27.0-32.0 [facility] MCHC (RBC) [Mass/Vol] 34.0 g/dL 32-36 [facility] Nucleated RBC/100 WBC (Bld) [Ratio] 0 % 0-5 [facility] Platelet mean volume (Bld) [Entitic vol] 10.3 fL 6.2-12.0 [facility] Platelets (Bld) [#/Vol] 171 10*3/uL 150-450 [facility] No Panel InformationOrdered By: Lorenzo Abad on 08-27-2023 Estimated GFR (MDRD) Amer 71 mL/min >60 [facility] Comment on above: GFR Calc Estimated GFR (MDRD) Non-Af Amer 59 mL/min >60 [facility] Comment on above: Non- GFR Calc No Panel InformationOrdered By: Roni Rodarte on 08-27-2023 Free Triiodothyronine (T3) pg/dL 1.7 pg/mL 2.18-3.98 [facility] RBC Auto (Bld) [#/Vol]Ordere d By: Lorenzo Abad on 08-27-2023 RBC (Bld) [#/Vol] 4.82 10*6/uL 4.6-6.2 [facility] Serum or plasma calcium maynor urement (mass/volume)Ordered By: Lorenzo Abad on 08-27-2023 Calcium [Mass/Vol] 9.2 mg/dL 8.5-10.1 [facility] Serum or plasma creatinine m easurement (mass/volume)Ordered By: Lorenzo Abad on 08-27-2023 Creatinine [Mass/Vol] 1.32 mg/dL 0.70-1.30 [facility] Comment on above: The validity of the calculated GFR & GFRAA in patients over 70 years has not been determined. Clinical correlation is essential. Serum or plasma thyroid stim ulating hormone (TSH) measurement (units/volume)Ordered By: Roni Rodarte on 08-27-2023 TSH Qn 17.10 uIU/mL 0.358-3.74 [facility] Serum or plasma urea nitroge n measurement (mass/volume)Ordered By: Lorenzo Abad on 08-27-2023 Urea nitrogen [Mass/Vol] 17 mg/dL 7-18 [facility] Thin prep Papanicolaou smear with manual screeningOrdered By: Lorenzo Abad on 08-27-2023 Thin prep Papanicolaou smear with manual screening 3.7 g/dL 3.2-5.0 [facility] Thin prep Papanicolaou smear with manual screening 33 U/L 15 [facility] Comment on above: Slight Hemolysis, Re sult may be falsely increased. Thin prep Papanicolaou smear with manual screening 3 5-15 [facility] Thin prep Papanicolaou smear with manual screeningOrdered By: Roni Rodarte on 08-27-2023 Thin prep Papanicolaou smear with manual screening 0.73 ng/dL 0.76-1.46 [facility] No Panel InformationOrdered By: Yamilet Villeda on 03-22-2023 Prostate Specific Antigen Total 8.66 ng/mL 0.0-4.0 [facility] Comment on above: This test was perfor med using the TPSA assay method for theDimension chemistry system. Values obtained with differentassay methods cannot be used interchangably.When changing PSA assays in the course of monitoring apatient, additional sequential testing should be carriedout to confirm baseline values. Laboratory - Chemistry and C hemistry - challengeOrdered By: Roni Rodarte on 03-07-2023 Free T4 [Mass/Vol] 0.66 ng/dL 0.76-1.46 [facility] No Panel InformationOrdered By: Roni Rodarte on 03-07-2023 Free Triiodothyronine (T3) pg/dL 2.1 pg/mL 2.18-3.98 [facility] Prostate Specific Antigen Screen 8.66 ng/mL 0.00-4.00 [facility] Comment on above: This test was perfor med using the TPSA assay method for theDimension chemistry system. Values obtained with differentassay methods cannot be used interchangably.When changing PSA assays in the course of monitoring apatient, additional sequential testing should be carriedout to confirm baseline values. Thyroid Stimulating Hormone (TSH) 12.60 uIU/mL 0.358-3.74 [facility] Absolute lymphocyte countOrd ered By: Roni Rodarte on 02-05-2023 Lymphocytes Auto (Unsp spec) [#/Vol] 1.16 10*3/uL 0.83-4.51 [facility] Basophil percentageOrdered B y: Roni Rodarte on 02-05-2023 Basophil percentage 2.9 mg/dL 2.5-4.9 [facility] Basophils/100 WBC (Bld) 1.2 % 0-[address] [facility] Bilirubin [Mass/Vol] 1.00 mg/dL 0.20-1.00 [facility] Comment on above: For patients on eltr ombopag therapy, use of Dimension [place] TBIL is not recommended. Chloride [Moles/Vol] 106 mmol/L 98-107 [facility] Cholesterol [Mass/Vol] 109 mg/dL <200 [facility] Comment on above: <200 mg/dL Desirable 200-240 mg/dL Borderline >240 mg/dL High Risk Eosinophils/100 WBC (Bld) 6.0 % 0-5 [facility] Glucose [Mass/Vol] 98 mg/dL 74-106 [facility] Neutrophils (Bld) [#/Vol] 2.7 10*3/uL 2.0-7.7 [facility] Neutrophils/100 WBC (Bld) 54.8 % 47-70 [facility] Potassium [Moles/Vol] 4.2 mmol/L 3.5-5.1 [facility] Protein [Mass/Vol] 7.8 g/dL 6.4-8.2 [facility] Sodium [Moles/Vol] 142 mmol/L 136-145 [facility] Triglyceride [Mass/Vol] 54 mg/dL <[address] [facility] Comment on above: The drugs N-Acetylcy steine and Metamizole may falsely depress this assay.Serum Triglycerides Reference Interval Normal <150 mg/dL Borderline high 150 - 199 mg/dL High 200 - 499 mg/dL Very High > or = 500 mg/dL WBC (Bld) [#/Vol] 4.8 10*3/uL 4.4-11.0 [facility] Blood erythrocytes count (nu mber/volume)Ordered By: Roni Rodarte on 02-05-2023 RBC (Bld) [#/Vol] 6.26 10*6/uL 4.6-6.2 [facility] Blood hemoglobin measurement (mass/volume)Ordered By: Roni Rodarte on 02-05-2023 Hemoglobin (Bld) [Mass/Vol] 15.8 g/dL 13.0-16.5 [facility] Blood lymphocytes/100 leukoc ytesOrdered By: Roni Rodarte on 02-05-2023 Lymphocytes/100 WBC (Bld) 24.0 % 19-41 [facility] Blood manual differential co mment interpretation (narrative result)Ordered By: Roni Rodarte on 02-05-2023 Manual differential comment Dorian (Bld) [Interp] SCANNED [facility] Blood monocytes/100 leukocyt esOrdered By: Roni Rodarte on 02-05-2023 Monocytes/100 WBC (Bld) 13.6 % 0-[address] [facility] Blood platelet mean volumeOr dered By: Roni Rodarte on 02-05-2023 Platelet mean volume (Bld) [Entitic vol] 10.0 fL 6.2-12.0 [facility] Determination of erythrocyte mean corpuscular volume (MCV)Ordered By: Roni Rodarte on 02-05-2023 MCV (RBC) [Entitic vol] 81.3 fL 80-[address] [facility] Hematocrit Auto (Bld) [Volum e fraction]Ordered By: Roni Rodarte on 02-05-2023 Hematocrit (Bld) [Volume fraction] 50.9 % 40-54 [facility] Hemoglobin in reticulocytes (mass per reticulocyte)Ordered By: Roni Rodarte on 02-05-2023 Hemoglobin (Reticulocytes) [Entitic mass] 27.2 pg 30-35 [facility] Hypochromatic red blood cell detectionOrdered By: Roni Rodarte on 02-05-2023 Hypochromia Ql (Bld) 1+ [facility] Laboratory - Chemistry and C hemistry - challengeOrdered By: Roni Rodarte on 02-05-2023 ALP [Catalytic activity/Vol] 62 U/L 45-117 [facility] ALT [Catalytic activity/Vol] 31 U/L 16-61 [facility] CO2 [Moles/Vol] 29.0 mmol/L 21.0-32.0 [facility] Globulin (S) [Mass/Vol] 3.8 g/dL 2.2-4.[address] [facility] Urea nitrogen/Creatinine [Mass ratio] 14.2 mg/mg 10-20 [facility] Laboratory - Hematology and Cell countsOrdered By: Roni Rodarte on 02-05-2023 Anisocytosis Ql (Bld) 2+ [facility] Erythrocyte distribution width (RBC) [Entitic vol] 59.8 fL 35.1-43.9 [facility] Erythrocyte distribution width (RBC) [Ratio] 21.3 % 11.6-14.6 [facility] Immature granulocytes/100 WBC (Bld) 0.400 % 0.0-0.9 [facility] Comment on above: IG% - Immature Granu locytes (promyelocytes, myelocytes and metamyelocytes) > 1% indicates that a LEFT SHIFT is Present. MCH (RBC) [Entitic mass] 25.2 pg 27.0-32.0 [facility] Nucleated RBC/100 WBC (Bld) [Ratio] 0 % 0-5 [facility] MCHC Auto (RBC) [Mass/Vol]Or dered By: Roni Rodarte on 02-05-2023 MCHC (RBC) [Mass/Vol] 31.0 g/dL 32-36 [facility] Macrocytes detectionOrdered By: Roni Rodarte on 02-05-2023 Macrocytes Ql (Bld) 1+ [facility] No Panel InformationOrdered By: Roni Rodarte on 02-05-2023 Estimated GFR (MDRD) Amer 54 mL/min >60 [facility] Comment on above: GFR Calc Estimated GFR (MDRD) Non-Af Amer 44 mL/min >60 [facility] Comment on above: Non- GFR Calc Immature Reticulocyte Fraction 17.00 % 3.00-15.90 [facility] Parathyroid Hormone (Intact) 68.4 pg/mL 18.4-80.1 [facility] Reticulocyte Count 1.13 % 0.5-1.5 [facility] Thyroid Stimulating Hormone (TSH) 5.41 uIU/mL 0.358-3.74 [facility] Platelets bldOrdered By: Lucrecia Rodarte on 02-05-2023 Platelets (Bld) [#/Vol] 259 10*3/uL 150-450 [facility] Serum or plasma albumin maynor urement (mass/volume)Ordered By: Roni Rodarte on 02-05-2023 Albumin [Mass/Vol] 4.0 g/dL 3.2-5.0 [facility] Serum or plasma albumin/glob ulin mass ratioOrdered By: Roni Rodarte on 02-05-2023 Albumin/Globulin [Mass ratio] 1.1 {ratio} 0.9-2.4 [facility] Serum or plasma calcium maynor urement (mass/volume)Ordered By: Roni Rodarte on 02-05-2023 Calcium [Mass/Vol] 9.1 mg/dL 8.5-10.1 [facility] Serum or plasma cholesterol in HDL measurement (mass/volume)Ordered By: Roni Rodarte on 02-05-2023 Cholesterol in HDL [Mass/Vol] 37 mg/dL >40 [facility] Comment on above: The drugs N-Acetylcy steine and Metamizole may falsely depress this assay. Reference Range HDL <40 mg/dL Low HDL Cholesterol HDL >or= 60 mg/dL High HDL Cholesterol Serum or plasma cholesterol in VLDL measurement (mass/volume)Ordered By: Roni Rodarte on 02-05-2023 Cholesterol in VLDL [Mass/Vol] 11 mg/dL 5-40 [facility] Serum or plasma creatinine m easurement (mass/volume)Ordered By: Roni Rodarte on 02-05-2023 Creatinine [Mass/Vol] 1.69 mg/dL 0.70-1.30 [facility] Comment on above: The validity of the calculated GFR & GFRAA in patients over 70 years has not been determined. Clinical correlation is essential. Serum or plasma ferritin francis surement (mass/volume)Ordered By: Roni Rodarte on 02-05-2023 Ferritin [Mass/Vol] 15 ng/mL 26-388 [facility] Serum or plasma low density lipoprotein (LDL) cholesterol measurement (mass/volume)Ordered By: Roni Rodarte on 02-05-2023 Cholesterol in LDL [Mass/Vol] 61 mg/dL 0-130 [facility] Serum or plasma urea nitroge n measurement (mass/volume)Ordered By: Roni Rodarte on 02-05-2023 Urea nitrogen [Mass/Vol] 24 mg/dL 7-18 [facility] Thin prep Papanicolaou smear with manual screeningOrdered By: Roni Rodarte on 02-05-2023 Thin prep Papanicolaou smear with manual screening 1+ [facility] Thin prep Papanicolaou smear with manual screening 33 U/L 15-37 [facility] Thin prep Papanicolaou smear with manual screening 7 5-15 [facility] Laboratory - Chemistry and C hemistry - challengeon 02-03-2022 Free T4 [Mass/Vol] 0.62 ng/dL 0.76-1.46 [facility] Work Phone: No Panel Informationon 02-03 Thyroid Stimulating Hormone (TSH) 11.80 uIU/mL 0.358-3.74 [facility] Work Phone: Basophil percentageon 2021 Basophil percentage 2.2 mg/dL 2.5-4.9 [facility] Work Phone: Chloride [Moles/Vol] 106 mmol/L 98-107 [facility]: Cholesterol [Mass/Vol] 111 mg/dL <200 [facility] Work Phone: Comment on above: <200 mg/dL Desirable 200-240 mg/dL Borderline >240 mg/dL High Risk Glucose [Mass/Vol] 92 mg/dL 74-106 [facility] Work Phone: Potassium [Moles/Vol] 4.0 mmol/L 3.5-5.1 [facility]: Sodium [Moles/Vol] 139 mmol/L 136-145 [facility] Work Phone: Triglyceride [Mass/Vol] 58 mg/dL <[address] [facility] Work Phone: Comment on above: The drugs N-Acetylcy steine and Metamizole may falsely depress this assay.Serum Triglycerides Reference Interval Normal <150 mg/dL Borderline high 150 - 199 mg/dL High 200 - 499 mg/dL Very High > or = 500 mg/dL Laboratory - Chemistry and C hemistry - challengeon 01-30-2022 CO2 [Moles/Vol] 28.0 mmol/L 21.0-32.0 [facility] Work Phone: Urea nitrogen/Creatinine [Mass ratio] 13.0 mg/mg 10-20 [facility] Work Phone: No Panel Informationon 01-30 Estimated GFR (MDRD) Amer 57 mL/min >60 [facility] Work Phone: Comment on above: GFR Calc Estimated GFR (MDRD) Non-Af Amer 47 mL/min >60 [facility] Work Phone: Comment on above: Non- GFR Calc Serum or plasma albumin maynor urement (mass/volume)on 01-30-2022 Albumin [Mass/Vol] 3.7 g/dL 3.2-5.0 [facility] Work Phone: Serum or plasma calcium maynor urement (mass/volume)on 01-30-2022 Calcium [Mass/Vol] 8.9 mg/dL 8.5-10.1 [facility] Work Phone: Serum or plasma cholesterol in HDL measurement (mass/volume)on 01-30-2022 Cholesterol in HDL [Mass/Vol] 47 mg/dL >40 [facility] Work Phone: Comment on above: The drugs N-Acetylcy steine and Metamizole may falsely depress this assay. Reference Range HDL <40 mg/dL Low HDL Cholesterol HDL >or= 60 mg/dL High HDL Cholesterol Serum or plasma cholesterol in VLDL measurement (mass/volume)on 01-30-2022 Cholesterol in VLDL [Mass/Vol] 12 mg/dL 5-40 [facility] Work Phone: Serum or plasma creatinine m easurement (mass/volume)on 01-30-2022 Creatinine [Mass/Vol] 1.62 mg/dL 0.70-1.30 [facility] Work Phone: Comment on above: The validity of the calculated GFR & GFRAA in patients over 70 years has not been determined. Clinical correlation is essential. Serum or plasma low density lipoprotein (LDL) cholesterol measurement (mass/volume)on 01-30-2022 Cholesterol in LDL [Mass/Vol] 52 mg/dL 0-130 [facility] Work Phone: Serum or plasma urea nitroge n measurement (mass/volume)on 01-30-2022 Urea nitrogen [Mass/Vol] 21 mg/dL 7-18 [facility] Work Phone: Basophil percentageon 2021 WBC (Bld) [#/Vol] 7.3 10*3/uL 4.4-11.0 [facility] Work Phone: Blood erythrocytes count (nu mber/volume)on 10-02-2021 RBC (Bld) [#/Vol] 5.12 10*6/uL 4.6-6.2 [facility] Work Phone: Blood hemoglobin measurement (mass/volume)on 10-02-2021 Hemoglobin (Bld) [Mass/Vol] 16.0 g/dL 13.0-16.5 [facility] Work Phone: Blood platelet mean volumeon 10-02-2021 Platelet mean volume (Bld) [Entitic vol] 9.9 fL 6.2-12.0 [facility] Work Phone: Determination of erythrocyte mean corpuscular volume (MCV)on 10-02-2021 MCV (RBC) [Entitic vol] 92.0 fL 80-[address] [facility] Work Phone: Hematocrit Auto (Bld) [Volum e fraction]on 10-02-2021 Hematocrit (Bld) [Volume fraction] 47.1 % 40-54 [facility] Work Phone: INR in Blood by Coagulation assayon 10-02-2021 INR Coag (Bld) [Relative time] 2.3 {INR} [facility] Work Phone: Laboratory - Coagulationon 0 10-02-2021 PT Coag (PPP) [Time] 24.7 s 11.7-14.9 [facility] Work Phone: Laboratory - Hematology and Cell countson 10-02-2021 Erythrocyte distribution width (RBC) [Entitic vol] 65.1 fL 35.1-43.9 [facility] Work Phone: Erythrocyte distribution width (RBC) [Ratio] 19.1 % 11.6-14.6 [facility] Work Phone: MCH (RBC) [Entitic mass] 31.3 pg 27.0-32.0 [facility] Work Phone: MCHC Auto (RBC) [Mass/Vol]on 10-02-2021 MCHC (RBC) [Mass/Vol] 34.0 g/dL 32-36 [facility] Work Phone: Platelets bldon 10-02-2021 Platelets (Bld) [#/Vol] 217 10*3/uL 150-450 [facility] Work Phone: Laboratory - Coagulationon 0 10-01-2021 INR Coag (Bld) [Relative time] 2.1 {INR} [facility] Work Phone: Comment on above: Critical Value > 4.0 Whole blood prothrombin time on 10-01-2021 PT Coag (Bld) [Time] 25.0 s 11.7-14.9 [facility] Work Phone: Basophil percentageon 2021 Basophil percentage 0 SEEN /hpf [facility] Work Phone: Chloride [Moles/Vol] 108 mmol/L 98-107 [facility] Work Phone: Glucose [Mass/Vol] 143 mg/dL 74-106 [facility] Work Phone: Comment on above: Fasting Glucose resu lt greater than or equal to 126 mg/dL suggests DIABETES MELLITUS per A.D.A. criteria. Potassium [Moles/Vol] 3.8 mmol/L 3.5-5.1 [facility] Work Phone: Sodium [Moles/Vol] 140 mmol/L 136-145 [facility] Work Phone: WBC (Bld) [#/Vol] 4.9 10*3/uL 4.4-11.0 [facility] Work Phone: Bilirubin Test strip Ql (U)o n 09-28-2021 Bilirubin Ql (U) Negative Negative [facility] Work Phone: Blood erythrocytes count (nu mber/volume)on 09-28-2021 RBC (Bld) [#/Vol] 5.22 10*6/uL 4.6-6.2 [facility] Work Phone: Blood hemoglobin measurement (mass/volume)on 09-28-2021 Hemoglobin (Bld) [Mass/Vol] 16.0 g/dL 13.0-16.5 [facility] Work Phone: Blood manual differential co mment interpretation (narrative result)on 09-28-2021 Manual differential comment Dorian (Bld) [Interp] See comment [facility] Work Phone: Comment on above: 1+ ANISOCYTOSIS Blood platelet mean volumeon 09-28-2021 Platelet mean volume (Bld) [Entitic vol] 10.2 fL 6.2-12.0 [facility] Work Phone: Determination of erythrocyte mean corpuscular volume (MCV)on 09-28-2021 MCV (RBC) [Entitic vol] 91.0 fL 80-[address] [facility] Work Phone: Hematocrit Auto (Bld) [Volum e fraction]on 09-28-2021 Hematocrit (Bld) [Volume fraction] 47.5 % 40-54 [facility] Work Phone: INR in Blood by Coagulation assayon 09-28-2021 INR Coag (Bld) [Relative time] 2.2 {INR} [facility] Work Phone: Ketones Test strip Ql (U)on 09-28-2021 Ketones Ql (U) Negative Negative [facility] Work Phone: Laboratory - Chemistry and C hemistry - challengeon 09-28-2021 CO2 [Moles/Vol] 28.0 mmol/L 21.0-32.0 [facility] Work Phone: Urea nitrogen/Creatinine [Mass ratio] 13.5 mg/mg 10-20 [facility] Work Phone: Laboratory - Coagulationon 0 09-28-2021 PT Coag (PPP) [Time] 24.0 s 11.7-14.9 [facility] Work Phone: Laboratory - Hematology and Cell countson 09-28-2021 Erythrocyte distribution width (RBC) [Entitic vol] 66.4 fL 35.1-43.9 [facility] Work Phone: Erythrocyte distribution width (RBC) [Ratio] 19.9 % 11.6-14.6 [facility] Work Phone: MCH (RBC) [Entitic mass] 30.7 pg 27.0-32.0 [facility] Work Phone: MCHC Auto (RBC) [Mass/Vol]on 09-28-2021 MCHC (RBC) [Mass/Vol] 33.7 g/dL 32-36 [facility] Work Phone: Mucus LM Ql (Urine sed)on Mucus Ql (Urine sed) 0 SEEN /hpf [facility] Work Phone: Nitrite Test strip Ql (U)on 09-28-2021 Nitrite Ql (U) Negative Negative [facility] Work Phone: No Panel Informationon 09-28 Estimated GFR (MDRD) Amer 71 mL/min >60 [facility] Work Phone: Comment on above: GFR Calc Estimated GFR (MDRD) Non-Af Amer 59 mL/min >60 [facility] Work Phone: Comment on above: Non- GFR Calc Platelets bldon 09-28-2021 Platelets (Bld) [#/Vol] 214 10*3/uL 150-450 [facility] Work Phone: Protein Test strip Ql (U)on 09-28-2021 Protein Ql (U) Negative Negative [facility] Work Phone: Serum or plasma calcium maynor urement (mass/volume)on 09-28-2021 Calcium [Mass/Vol] 9.3 mg/dL 8.5-10.1 [facility] Work Phone: Serum or plasma creatinine m easurement (mass/volume)on 09-28-2021 Creatinine [Mass/Vol] 1.33 mg/dL 0.70-1.30 [facility] Work Phone: Comment on above: The validity of the calculated GFR & GFRAA in patients over 70 years has not been determined. Clinical correlation is essential. Serum or plasma urea nitroge n measurement (mass/volume)on 09-28-2021 Urea nitrogen [Mass/Vol] 18 mg/dL 7-18 [facility] Work Phone: Squamous epithelial cells de tection in urine sediment by light microscopyon 09-28-2021 Epithelial cells.squamous LM Ql (Urine sed) 0 SEEN /hpf [facility] Work Phone: Thin prep Papanicolaou smear with manual screeningon 09-28-2021 Thin prep Papanicolaou smear with manual screening 4 5-15 [facility] Work Phone: Urine blood detectionon 09-11 RBC Ql (U) Negative Negative [facility] Work Phone: RBC Ql (U) 0 SEEN /hpf [facility] Work Phone: Urine clarityon 09-28-2021 Clarity (U) Clear Clear [facility] Work Phone: Urine color determinationon 09-28-2021 Color (U) Yellow Yellow [facility] Work Phone: Urine glucose detectionon Glucose Ql (U) Normal mg/dl Normal [facility] Work Phone: Urine leukocyte esterase det ection by dipstickon 09-28-2021 Leukocyte esterase Test strip Ql (U) Negative Negative [facility] Work Phone: Urine pHon 09-28-2021 pH (U) 6.0 [pH] [facility] Work Phone: Urine sediment bacteria coun t by microscopy (number/high power field)on 09-28-2021 Bacteria LM.HPF (Urine sed) [#/Area] 0 /[HPF] None Seen [facility] Work Phone: Urine specific gravity measu rementon 09-28-2021 Specific gravity (U) [Rel density] 1.015 [facility] Work Phone: Urobilinogen Auto test strip Ql (U)on 09-28-2021 Urobilinogen Ql (U) Normal mg/dl Normal [facility] Work Phone: XR KNEE 4V AP/LAT/OBLS RTon 08-23-2020 XR KNEE 4V AP/LAT/OBLS RT Final Report DATE OF EXAM: Aug 23 2020 9:48AM AWX [id number] - XR KNEE 4V AP/LAT/OBLS RT / PROCEDURE REASON: Joint pain, knee Physician Interpretation EXAMINATION: XR KNEE 4V AP/LAT/OBLS RT CLINICAL HISTORY: c/o right knee pain after twisting it a few weeks ago. difficulty walking. no previous surgery Technique: XR KNEE 4V AP/LAT/OBLS RT -- RIGHT with 4 views on 4 images Comparison: None RESULT: No fracture or dislocation. Joint spaces are maintained. Minimal tricompartment degenerative changes with marginal osteophytes. Small knee effusion. Vascular calcifications. IMPRESSION: No acute osseous findings. Minimal degenerative changes. Small knee effusion. Drawer In Hand: PSCB Transcribe Date/Time: Aug 23 2020 9:58A Dictated by : WOOD ROSE MD This examination was interpreted and the report reviewed and electronically signed by: WOOD ROSE MD on Aug 23 2020 9:59AM EST Normal [facility] Coumadin Management: Lara Ordoñez 04-19-2017 INR Coag RelTime (Bld) 2.5 to 3.5 Invalid Interpretation Code [facility] Work Phone: [phone] INR Coag RelTime (Bld) Hospital lab Invalid Interpretation Code [facility] Work Phone: [phone] INR Coag RelTime (PPP) 3.6 {INR} Invalid Interpretation Code [facility] Work Phone: [phone] Prothrombin time (PT) Coag time (PPP) 34.5 s Invalid Interpretation Code [facility] Work Phone: [phone] Lab Report: Prothrombin Time w/INRon 04-18-2017 Prothrombin time (PT) Coag time (PPP) 34.5 s High 11.7-14.9 [facility] Work Phone: [phone] Office Visiton 03-07-2017 Dietary management education, guidance, and counseling (procedure) yes Invalid Interpretation Code [facility] Work Phone: [phone] Documentation of current medications (procedure) Done Invalid Interpretation Code [facility] Work Phone: [phone] Fall risk assessment No Invalid Interpretation Code [facility] Work Phone: [phone] Tobacco use CPHS Never smoker Invalid Interpretation Code [facility] Work Phone: [phone] Lab Report: CREATININE FINGE RSTICKon 02-16-2017 EGFR WB > 60.0000 mL/min Invalid Interpretation Code >60 [facility] Work Phone: [phone] Lab Report: T4 Free Directon 12-01-2016 Thyroxine (T4) free 0.53 ng/dL Low 0.76-1.46 [facility] Work Phone: [phone] Lab Report: Thyroid Stim Hor geronimo (TSH)on 12-01-2016 Thyroid stimulating hormone (TSH) 10.70 u[iU]/mL High 0.358-3.74 [facility] Work Phone: [phone] Lab Report: Serum Creatinine AND GFRon 09-03-2016 Creatinine 1.70 mg/dL High 0.70-1.30 [facility] Work Phone: [phone] eGFR (non-black) 45 mL/min/{1.73_m2} Low >60 [facility] Work Phone: [phone] eGFR (non-black) 55 mL/min/{1.73_m2} Low >60 [facility] Work Phone: [phone] Lab Report: Lipid Profileon 09-01-2016 Cholesterol 93 mg/dL Invalid Interpretation Code 200 [facility] Work Phone: [phone] HDL Cholesterol 39 mg/dL Low [facility] Work Phone: [phone] LDL Cholesterol 38 mg/dL Invalid Interpretation Code 0-130 [facility] Work Phone: [phone] Triglyceride 78 mg/dL Invalid Interpretation Code [facility] Work Phone: [phone] very low density lipoproteins 16 mg/dL Invalid Interpretation Code 5-40 [facility] Work Phone: [phone] Lab Report: Liver Profileon 09-01-2016 Alanine aminotransferase (ALT) 48 U/L Invalid Interpretation Code 12-78 [facility] Work Phone: [phone] Albumin 3.9 g/dL Invalid Interpretation Code 3.4-5.0 [facility] Work Phone: [phone] Alkaline phosphatase (ALP) 45 U/L Invalid Interpretation Code 45-117 [facility] Work Phone: [phone] Aspartate aminotransferase (AST) 47 U/L High 15-37 [facility] Work Phone: [phone] Bilirubin (direct) 0.33 mg/dL High 0.00-0.30 [facility] Work Phone: [phone] Bilirubin (total) 1.30 mg/dL High 0.20-1.00 [facility] Work Phone: [phone] Globulin 3.8 g/dL High 2.3-3.5 [facility] Work Phone: [phone] Protein 7.7 g/dL Invalid Interpretation Code 6.4-8.2 [facility] Work Phone: [phone] 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 Left ventricular Ejection fraction 65 % Invalid Interpretation Code [facility] Work Phone: [phone] Lab Report: Prothrombin Time [facility] 04-26-2016 Prothrombin time (PT) Coag time (PPP) 29.2 s High 11.9-14.4 [facility] Work Phone: [phone] Lab Report: Basic Metabolic Profile (BMP)on 03-27-2016 Anion gap 1 mmol/L Low -15 [facility] Work Phone: [phone] BUN/Creatinine Ratio 6.6 RATIO Low -20 [facility] Work Phone: [phone] Calcium 8.9 mg/dL Invalid Interpretation Code 8.5-10.1 [facility] Work Phone: [phone] Chloride 106 mmol/L Invalid Interpretation Code 98-107 [facility] Work Phone: [phone] CO2 30.0 mmol/L Invalid Interpretation Code 21.0-32.0 [facility] Work Phone: [phone] Glucose mass conc 121 mg/dL High 70-110 [facility] Work Phone: [phone] Potassium molar conc 4.2 mmol/L Invalid Interpretation Code 3.5-5.1 [facility] Work Phone: [phone] Sodium 137 mmol/L Invalid Interpretation Code 136-145 [facility] Work Phone: [phone] Urea nitrogen 11 mg/dL Invalid Interpretation Code 7-18 [facility] Work Phone: [phone] Lab Report: CBC W/Diff, Auto matedon 03-27-2016 Absolute Neut 5.2 X10 3/UL Invalid Interpretation Code 2.0-7.7 [facility] Work Phone: [phone] Basophils/100 WBC Auto (Bld) 0.7 % Invalid Interpretation Code 0-1 [facility] Work Phone: [phone] Eosinophils/100 leukocytes 7.5 % High 0-5 [facility] Work Phone: [phone] Erythrocyte distribution width Auto Ratio (RBC) 15.5 % High 11.6-14.6 [facility] Work Phone: [phone] Erythrocytes (RBC) 5.61 10*6/uL Invalid Interpretation Code 4.6-6.2 [facility] Work Phone: [phone] Hematocrit (HCT) 51.9 % Invalid Interpretation Code 40-54 [facility] Work Phone: [phone] Hemoglobin mass conc (Bld) 17.4 g/dL High 13.0-16.5 [facility] Work Phone: [phone] Immature granulocytes/100 WBC (Bld) 0.100 % Invalid Interpretation Code 0.0-0.9 [facility] Work Phone: [phone] Lymphocytes 0.77 X10 3/UL Low 0.83-4.51 [facility] Work Phone: [phone] Lymphocytes/100 leukocytes 10.4 % Low 19-41 [facility] Work Phone: [phone] MCH 31.0 pg Invalid Interpretation Code 27.0-32.0 [facility] Work Phone: [phone] MCHC mass conc (RBC) 33.5 G/GL Invalid Interpretation Code 32-36 [facility] Work Phone: [phone] MCV 92.5 fL Invalid Interpretation Code 80-94 [facility] Work Phone: [phone] Monocytes/100 leukocytes 11.4 % High 0-10 [facility] Work Phone: [phone] Neutrophils/100 WBC Auto (Bld) 69.9 % Invalid Interpretation Code 47-70 [facility] Work Phone: [phone] Platelets 217 10*3/mm3 Invalid Interpretation Code 150-450 [facility] Work Phone: [phone] PMV by Jose 9.9 fL Invalid Interpretation Code 6.2-12.0 [facility] Work Phone: [phone] RDW SD 52.9 fL High 35.1-43.9 [facility] Work Phone: [phone] WBC (Leukocytes) 7.4 10*3/uL Invalid Interpretation Code 4.4-11.0 [facility] Work Phone: [phone] Lab Report: Microalb:Creat R atio,Random URon 03-27-2016 ACR (microalbumin/creatinin e) ratio 16.2 MG/G CRE Invalid Interpretation Code <30 mg/g CRE [facility] Work Phone: [phone] Urine, creatinine 118.00 mg/dL Invalid Interpretation Code NO RANGE EST. [facility] Work Phone: [phone] Urine, microalbumin 1.91 mg/dL Invalid Interpretation Code Units converted. See lab report for original value. [facility] Work Phone: [phone] Office Visiton 06-09-2015 General cardiovascular disease 10Y risk [#] Graciela'Dariel 3 % Invalid Interpretation Code [facility] Work Phone: [phone] Lab Report: CBC W/Diff, Auto matedon 03-17-2015 Absolute Neut 1.7 X10 3/UL Low 2.0-7.7 [facility] Work Phone: [phone] Lab Report: Comprehensive Me tabolic Profilon 03-17-2015 Albumin/Globulin Ratio 0.9 {ratio} Invalid Interpretation Code 0.9-2.4 [facility] Work Phone: [phone] Office Visiton 11-20-2014 cardiac risk group B Invalid Interpretation Code [facility] Work Phone: [phone] Office Visiton 03-12-2013 Alcoholism counseling (procedure) no Invalid Interpretation Code [facility] Work Phone: [phone] Lab Report: MGon 03-10-2013 Magnesium 1.9 mg/dL Normal 1.8-2.4 [facility] Work Phone: [phone] EKG Report: Hyder ECG Ob servationson 05-28-2011 EKG QRS axis -119 deg Invalid Interpretation Code [facility] Work Phone: [phone] Interpretation Sinus rhythm with VA T pacing Invalid Interpretation Code [facility] Work Phone: [phone] P Merino 48 deg Invalid Interpretation Code [facility] Work Phone: [phone] AR Interval 135 ms Invalid Interpretation Code [facility] Work Phone: [phone] Pulse (Heart Rate) 73 /min Invalid Interpretation Code [facility] Work Phone: [phone] Pulse (Heart Rate) 452 ms Invalid Interpretation Code [facility] Work Phone: [phone] QRS Duration 159 ms Invalid Interpretation Code [facility] Work Phone: [phone] QT Interval new path ms Invalid Interpretation Code [facility] Work Phone: [phone] T Merino 147 deg Invalid Interpretation Code [facility] Work Phone: Vital Signs Date Time Vital Sign Value Performing Clinician Faci jeanettey 10-22-2024 10:51-0400 Body height 177.[address] Roni Rodarte MD Work Phone: [facility] 10-22-2024 10:51-0400 Body weight 89.[address] Roni Rodarte MD Work Phone: [facility] 10-19-2024 07:32-0400 Body mass index (BMI) [Ratio] 28.4 kg/m2 Dr. Roni Rodarte MD Work Phone: [facility] 10-15-2024 07:32-0400 Body mass index (BMI) [Ratio] 28.4 kg/m2 Dr. Roni Rodarte MD Work Phone: [facility] 10-15-2024 07:32-0400 Body weight 89.[address] Roni Rodarte MD Work Phone: [facility] 10-15-2024 07:32-0400 Diastolic blood pressure 84 mm[Hg] Dr. Roni Rodarte MD Work Phone: [facility] 10-15-2024 07:32-0400 Heart rate 83 /min Dr. Roni Rodarte MD Work Phone: [facility] 10-15-2024 07:32-0400 Respiratory rate 18 /min Dr. Roni Rodarte MD Work Phone: [facility] 10-15-2024 07:32-0400 SaO2% (BldA) [Mass fraction] 97 % Dr. Roni Rodarte MD Work Phone: [facility] 10-15-2024 07:32-0400 Systolic blood pressure 124 mm[Hg] Dr. Roni Rodarte MD Work Phone: [facility] 03-18-2023 13:49-0400 Body height 177.[address] Roni Rodarte Work Phone: [facility] 03-18-2023 13:45-0400 Body mass index (BMI) [Ratio] 28.4 kg/m2 Dr. Roni Rodarte Work Phone: [facility] 03-18-2023 13:45-0400 Body weight 89.[address] Roni Rodarte Work Phone: [facility] 03-18-2023 13:45-0400 Diastolic blood pressure 80 mm[Hg] Dr. Roni Rodarte Work Phone: [facility] 03-18-2023 13:45-0400 Heart rate 80 /min Dr. Roni Rodarte Work Phone: [facility] 03-18-2023 13:45-0400 Respiratory rate 18 /min Dr. Roni Rodarte Work Phone: [facility] 03-18-2023 13:45-0400 SaO2% (BldA) [Mass fraction] 95 % Dr. Roni Rodarte Work Phone: [facility] 03-18-2023 13:45-0400 Systolic blood pressure 129 mm[Hg] Dr. Roni Rodarte Work Phone: [facility] 09-17-2022 13:59-0400 Body height 177.8 cm Lito Liu DPM Work Phone: [facility] [facility] 09-17-2022 13:59-0400 Body weight 90.27 kg Lito Liu DPM Work Phone: [facility] 09-17-2022 13:59-0400 Respiratory rate 18 /min Lito Liu DPM Work Phone: [facility] 11-23-2021 15:32-0400 Body height 177.[address] Roni Rodarte Work Phone: [facility] Work Phone: 11-23-2021 15:32-0400 Body mass index (BMI) [Ratio] 28.5 kg/m2 Dr. Roni Rodarte Work Phone: [facility] Work Phone: 11-23-2021 15:32-0400 Body weight 90.[address] Roni Rodarte Work Phone: [facility] Work Phone: 11-23-2021 15:32-0400 Diastolic blood pressure 61 mm[Hg] Dr. Roni Rodarte Work Phone: [facility] Work Phone: 11-23-2021 15:32-0400 Heart rate 89 /min Dr. Roni Rodarte Work Phone: [facility] Work Phone: 11-23-2021 15:32-0400 Respiratory rate 16 /min Dr. Roni Rodarte Work Phone: [facility] Work Phone: 11-23-2021 15:32-0400 Systolic blood pressure 101 mm[Hg] Dr. Roni Rodarte Work Phone: [facility] Work Phone: 10-02-2021 09:43-0400 Body height 177.[address] Roni Rodarte Work Phone: [facility] Work Phone: 10-02-2021 09:43-0400 Body mass index (BMI) [Ratio] 27.5 kg/m2 Dr. Roni Rodarte Work Phone: [facility] Work Phone: 10-02-2021 09:43-0400 Body temperature 97.1 [degF] Dr. Roni Rodarte Work Phone: [facility] Work Phone: 10-02-2021 09:43-0400 Body weight 87.[address] Roni Rodarte Work Phone: [facility] Work Phone: 10-02-2021 09:43-0400 Diastolic blood pressure 80 mm[Hg] Dr. Roni Rodarte Work Phone: [facility] Work Phone: 04-22-2022 09:43-0400 Heart rate 69 /min Dr. Roni Rodarte Work Phone: [facility] Work Phone: 10-02-2021 09:43-0400 Respiratory rate 16 /min Dr. Roni Rodarte Work Phone: [facility] Work Phone: 10-02-2021 09:43-0400 SaO2% (BldA) [Mass fraction] 100 % Dr. Roni Rodarte Work Phone: [facility] Work Phone: 10-02-2021 09:43-0400 Systolic blood pressure 134 mm[Hg] Dr. Roni Rodarte Work Phone: [facility] Work Phone: 10-01-2021 10:03-0400 Body weight 87.[address] Roni Rodarte Work Phone: [facility] Work Phone: 09-30-2021 08:11-0400 Body mass index (BMI) [Ratio] 27.8 kg/m2 Dr. Roni Rodarte Work Phone: [facility] Work Phone: 09-28-2021 15:18-0400 Body mass index (BMI) [Ratio] 27.8 kg/m2 Dr. Roni Rodarte Work Phone: [facility] Work Phone: 09-28-2021 15:18-0400 Body weight 87.[address] Roni Rodarte Work Phone: [facility] Work Phone: 09-28-2021 15:18-0400 Diastolic blood pressure 73 mm[Hg] Dr. Roni Rodarte Work Phone: [facility] Work Phone: 09-28-2021 15:18-0400 Heart rate 80 /min Dr. Roni Rodarte Work Phone: [facility] Work Phone: 09-28-2021 15:18-0400 Respiratory rate 18 /min Dr. Roni Rodarte Work Phone: [facility] Work Phone: 09-28-2021 15:18-0400 SaO2% (BldA) [Mass fraction] 96 % Dr. Roni Rodarte Work Phone: [facility] Work Phone: 09-28-2021 15:18-0400 Systolic blood pressure 108 mm[Hg] Dr. Roni Rodarte Work Phone: [facility] Work Phone: 03-07-2017 15:21-0400 BMI (Body Mass Index) 30.85 kg/m2 [facility] Work Phone: 03-07-2017 [...] Date Encounter Type Care Provider Facility Start: 01-22-2025 ambulatory Roni Rodarte Facility:[facility] Start: 12-11-2024 ambulatory Ronimiladis Rodarte Facility:[facility] Start: 11-22-2024 End: 11-22-[address] Roni Rodarte MD Work Phone: [facility] Work Phone: Start: 11-22-2024 End: 11-22-[address] Brian Virk MD -[facility] Work Phone: Start: 10-22-2024 End: 10-22-2024 Admission to same day surgery center Dr. Brian Virk MD -[facility] Work Phone: Start: 10-22-2024 End: 10-22-[address] Roni Rodarte MD Work Phone: [facility] Work Phone: Start: 10-15-2024 End: 10-15-2024 Patient encounter procedure Zuleyma [place] -[facility] Work Phone: Start: 10-15-2024 End: 10-15-2024 Patient encounter procedure Zuleyma [place] -[facility] Work Phone: Start: 10-15-2024 End: 10-15-[address] Roni Rodarte MD Work Phone: [facility] Work Phone: Start: 10-15-2024 End: 10-15-2024 ambulatory Roni Rodarte Facility:[facility] Start: 09-28-2024 ambulatory Roni Rodarte Facility:[facility] Start: 09-28-2024 Non-patient / Non-visit Dr. Tori DAWN -[facility] Start: 09-28-2024 End: 09-28-2024 Patient encounter procedure Jeni Pina PA -Cardiovascular Services Work Phone: Start: 09-28-2024 End: 09-28-2024 ambulatory Roni Rodarte Facility:[facility] Start: 08-23-2024 End: 08-23-2024 ambulatory Roni Rodarte Facility:[facility] Start: 08-23-2024 End: 08-23-[address] Brian Virk MD -[facility] Work Phone: Start: 06-18-2024 End: 06-18-2024 ambulatory Roni Rodarte Facility:[facility] Start: 06-15-2024 End: 06-15-2024 ambulatory Roni Rodarte Facility:[facility] Start: 05-26-2024 End: 05-26-2024 Emergency department patient visit RONI RODARTE Facility:[facility] Start: 05-24-2024 End: 05-24-2024 ambulatory Brian Virk Facility:[facility] Start: 02-23-2024 End: 02-23-2024 ambulatory Roni Rodarte Facility:[facility] Start: 02-18-2024 End: 02-18-2024 ambulatory Roni Rodarte Facility:[facility] Start: 02-16-2024 End: 02-16-2024 ambulatory Roni Rodarte Facility:[facility] Start: 08-27-2023 End: 08-27-[address] Roni Rodarte Work Phone: [facility] Work Phone: Start: 08-27-2023 End: 08-27-[address] Roni Rodarte Work Phone: [facility]-Laboratory Work Phone: Start: 06-08-2023 End: 06-08-[address] Roni Rodarte Work Phone: [facility] Work Phone: Start: 05-27-2023 End: 05-27-[address] Roni Rodarte Work Phone: [facility] Work Phone: Start: 05-16-2023 End: 05-16-[address] Roni Rodarte Work Phone: [facility] Work Phone: Start: 05-16-2023 End: 05-16-[address] [facility] Work [facility] Start: 03-22-2023 End: 03-22-[address] Roni Rodarte Work Phone: [facility] Work Phone: Start: 03-22-2023 End: 03-22-[address] [facility] Start: 03-18-2023 End: 03-18-[address] Roni Rodarte Work Phone: [facility] Work Phone: Start: 03-07-2023 End: 03-07-[address] Roni Rodarte Work Phone: [facility] Work Phone: Start: 02-24-2023 End: 02-24-[address] Roni Rodarte Work Phone: [facility] Work Phone: Start: 02-10-2023 End: 02-10-[address] Roni Rodarte Work Phone: [facility] Work Phone: Start: 02-10-2023 End: 02-10-[address] [facility] [place] Work Phone: Start: 02-05-2023 End: 02-05-[address] Roni Rodarte Work Phone: [facility] Work Phone: Start: 02-05-2023 End: 02-05-[address] [facility] Start: 11-17-2022 End: 11-17-[address] Roni Rodarte Work Phone: [facility] Work Phone: Start: 11-16-2022 End: 11-17-2022 Non-patient / Non-visit Dr. Roni Rodarte Work Phone: [facility] Start: 09-17-2022 End: 09-17-2022 Patient encounter procedure Lito Liu DPM Work Phone: [facility] Comment on above: Posterior tibial ten dinitis of left leg (Primary Dx); Pes planus of both feet Start: 02-03-2022 End: 02-03-[address] Roni Rodarte Work Phone: [facility] Work Phone: Start: 02-03-2022 End: 02-03-[address] [facility] Start: 01-30-2022 End: 01-30-[address] Roni Rodarte Work Phone: [facility] Work Phone: Start: 01-30-2022 End: 01-30-[address] [facility] Start: 01-20-2022 End: 01-20-[address] Roni Rodarte Work Phone: [facility] Start: 11-23-2021 End: 11-23-[address] Roni Rodarte Work Phone: [facility] Start: 10-29-2021 Non-patient / Non-visit Dr. James Rodarte Work Phone: [facility] Start: 10-29-2021 End: 10-29-[address] Roni Rodarte Work Phone: [facility]-Cardiovascular Services Start: 10-15-2021 End: 10-15-[address] Roni Rodarte Work Phone: [facility] Start: 10-02-2021 End: 10-02-2021 Emergency department patient visit Dr. Roni Rodarte Work Phone: [facility]-Emergency Department Start: 10-01-2021 Non-patient / Non-visit Dr. James Rodarte Work Phone: [facility] Start: 10-01-2021 End: 10-01-2021 Admission to same day surgery center Dr. Roni Rodarte Work Phone: [facility] Start: 09-28-2021 End: 09-28-[address] Roni Rodarte Work Phone: [facility]-Laboratory Start: 08-11-2021 End: 08-11-[address] Roni Rodarte Work Phone: [facility] Start: 08-19-2019 End: 08-19-2019 Refill Ebony Day PA-C Work Phone: General Surgery Comment on above: Refill Request Start: 04-16-[address] Roni Rodarte Work Phone: [facility] Procedures Date Procedure Procedure Detail Performing Clinician Start: 10-15-2024 X-ray of chest, PA a nd lateral views Dr. Roni Rodarte MD Work Phone: Start: 10-15-2024 Evaluation of diagno stic study results Dr. Roni Rodarte MD Work Phone: Start: 02-10-2023 Plain X-ray of shoulder Dr. Roni Rodarte Work Phone: Start: 03-07-2017 End: 03-07-2017 Follow Up [...] Appt 3 months Erik Patricia MD Start: 10-20-2016 End: 03-07-2017 Pacer [...] Appt 3 months Erik Patricia MD Start: 07-21-2016 End: 03-07-2017 Pacer Clinic [...] Program eval implantable in prsn multi ld rubensr Erik Patricia MD Start: 03-12-2013 End: 11-15-2013 [...] multi ld pacer Erik Patricia MD Start: 11-14-2012 End: 03-12-2013 INR in Platelet poor plasma by Coagulation assay Erik Patricia MD Start: 09-27-2012 End: 11-15-2013 Follow Up Appt 3 months Herb Hassan Start: 09-27-2012 End: 11-15-2013 Pacer Clinic Brian Virk MD Start: 09-27-2012 End: 09-27-2012 Program eval implantable in prsn multi ld pacer Brian Virk MD Start: 08-30-2012 End: 08-30-2012 Follow [...] Treatment Date Care Activity Detail Author Start: 10-22-2024 Patient discharge [facility] Start: 10-15-2024 Evaluation of diagnostic study results [facility] Start: 02-11-2023 Influenza vaccination INFLUENZA (Season Ended) [facility] Start: 06-13-2022 DEPRESSION ASSESSMENT DEPRESSION ASSESSMENT [facility] Start: 09-03-2021 LIPID SCREEN LIPID SCREEN [facility] Start: 02-11-2021 Influenza vaccination INFLUENZA (Season Ended) [facility] Start: 2019 PROSTATE CANCER SCREENING DISCUSSION PROSTATE CANCER SCREENING DISCUSSION [facility] Start: 01-10-2018 DIABETES SCREEN DIABETES SCREEN [facility] Start: 11-14-2017 End: 11-14-2017 Appointment Appointment [facility] Phone: Start: 09-02-2017 End: 09-03-2016 *Hepatic Function Panel *Hepatic Function Panel [facility] Work Phone: Start: 09-02-2017 End: 09-03-2016 Lipid panel [AGGREGATE] *Lipid Profile CC PCP [facility] Work Phone: Start: 04-25-2017 End: 04-25-2017 Appointment Appointment [facility] Phone: Start: 03-07-2017 End: 03-07-2017 Follow Up Appt 6 months Follow Up Appt 6 months [facility] Work Phone: Start: 03-07-2017 End: 03-07-2017 PFM PFM [facility] Work Phone: Start: 02-28-2017 End: 09-07-2016 Ct angiography chest w/contrast/noncontrast CTA Chest, with contrast material(s) [facility] Work Phone: Start: 01-19-2017 End: 03-07-2017 Follow Up Appt 3 months Follow Up Appt 3 months [facility] Work Phone: Start: 01-19-2017 End: 03-07-2017 Pacer Clinic Pacer Clinic [facility] Work Phone: Start: 11-11-2016 End: 01-20-2017 INR Coag RelTime (PPP) *PT/INR - Standing Order [facility] Work Phone: Start: 10-20-2016 End: 03-07-2017 Follow Up Appt 3 months Follow Up Appt 3 months [facility] Work Phone: Start: 10-20-2016 End: 03-07-2017 Pacer Clinic Pacer Clinic [facility] Work Phone: Start: 09-02-2016 End: 09-06-2016 *BMP *BMP [facility] Work Phone: Start: 09-02-2016 End: 09-02-2016 Ct angiography chest w/contrast/noncontrast CTA Chest, with contrast material(s) [facility] Work Phone: Start: 08-16-2016 End: 09-01-2016 *Hepatic Function Panel *Hepatic Function Panel [facility] Work Phone: Start: 08-16-2016 End: 08-17-2016 Echocardiography Echocardiogram (complete) [facility] Work Phone: Start: 08-16-2016 End: 08-16-2016 Follow Up Appt 6 months Follow Up Appt 6 months [facility] Work Phone: Start: 08-16-2016 End: 09-01-2016 Lipid panel [AGGREGATE] *Lipid Profile CC PCP [facility] Work Phone: Start: 08-16-2016 End: 03-07-2017 PFM PFM [facility] Work Phone: Start: 08-11-2016 End: 09-03-2016 *Hepatic Function Panel *Hepatic Function Panel [facility] Work Phone: Start: 08-11-2016 End: 09-03-2016 Lipid panel [AGGREGATE] *Lipid Profile CC PCP [facility] Work Phone: Start: 07-21-2016 End: 03-07-2017 Follow Up Appt 3 months Follow Up Appt 3 months [facility] Work Phone: Start: 07-21-2016 End: 03-07-2017 Pacer Clinic [facility] Clinic [facility] Work Phone: Start: 04-14-2016 End: 03-07-2017 Follow Up Appt 3 months Follow Up Appt 3 months [facility] Work Phone: Start: 04-14-2016 End: 03-07-2017 Pacer Clinic Pacer Clinic [facility] Work Phone: Start: 01-01-2016 End: 03-07-2017 Follow Up Appt 3 months Follow Up Appt 3 months [facility] Work Phone: Start: 01-01-2016 End: 03-07-2017 Pacer Clinic Pacer Clinic [facility] Work Phone: Start: 11-28-2015 End: 03-29-2016 Follow Up Appt 9 months Follow Up Appt 9 months [facility] Work Phone: Start: 11-28-2015 End: 03-29-2016 PFM PFM [facility] Work Phone: Start: 10-27-2015 End: 10-29-2015 *Hepatic Function Panel *Hepatic Function Panel [facility] Work Phone: Start: 10-27-2015 End: 10-29-2015 Lipid panel [AGGREGATE] *Lipid Profile CC PCP [facility] Work Phone: Start: 10-25-2015 End: 10-28-2015 *Hepatic Function Panel *Hepatic Function Panel [facility] Work Phone: Start: 10-25-2015 End: 10-28-2015 Lipid panel [AGGREGATE] *Lipid Profile CC PCP [facility] Work Phone: Start: 09-30-2015 End: 03-29-2016 Follow Up Appt 3 months Follow Up Appt 3 months [facility] Work Phone: Start: 09-30-2015 End: 03-29-2016 Pacer Clinic Pacer Clinic [facility] Work Phone: Start: 09-27-2015 End: 09-29-2015 INR Coag RelTime (PPP) *PT/INR [facility] Work Phone: Start: 06-25-2015 End: 03-29-2016 Follow Up Appt 3 months Follow Up Appt 3 months [facility] Work Phone: Start: 06-25-2015 End: 03-29-2016 Pacer Clinic Pacer Clinic [facility] Work Phone: Start: 06-09-2015 End: 06-09-2015 Follow Up Appt 6 months Follow Up Appt 6 months [facility] Work Phone: Start: 06-09-2015 End: 06-09-2015 PFM PFM [facility] Work Phone: Start: 03-17-2015 End: 06-09-2015 Follow Up Appt 3 months Follow Up Appt 3 months [facility] Work Phone: Start: 03-17-2015 End: 06-09-2015 Pacer Clinic Pacer Clinic [facility] Work Phone: Start: 12-02-2014 End: 03-29-2016 Follow Up Appt 3 months Follow Up Appt 3 months [facility] Work Phone: Start: 12-02-2014 End: 03-29-2016 Pacer Clinic Pacer Clinic [facility] Work Phone: Start: 11-20-2014 End: 11-20-2014 Follow Up Appt 6 months Follow Up Appt 6 months [facility] Work Phone: Start: 11-20-2014 End: 11-20-2014 PFM PFM [facility] Work Phone: Start: 08-28-2014 End: 03-29-2016 Follow Up Appt 3 months Follow Up Appt 3 months [facility] Work Phone: Start: 08-28-2014 End: 03-29-2016 Pacer Clinic Pacer Clinic [facility] Work Phone: Start: 05-29-2014 End: 03-29-2016 Follow Up Appt 3 months Follow Up Appt 3 months [facility] Work Phone: Start: 05-29-2014 End: 03-29-2016 Pacer Clinic Pacer Clinic [facility] Work Phone: Start: 05-01-2014 End: 03-29-2016 Follow Up Appt 1 month Follow Up Appt 1 month [facility] Work Phone: Start: 05-01-2014 End: 03-29-2016 [facility] Work Phone: Start: 2014 Screening for malignant neoplasm of colon [facility] Start: 2014 SHINGRIX VACCINE (1 of 2) SHINGRIX VACCINE (1 of 2) [facility] Start: 04-25-2014 End: 04-25-2014 Cardiac Referral Cardiac Referral [facility] [place], [address] [place] [address], [id number] [facility] Work Phone: Start: 04-15-2014 End: 04-15-2014 INR Coag RelTime (PPP) *PT/INR [facility] Work Phone: Start: 04-12-2014 End: 04-12-2014 INR Coag RelTime (PPP) *PT/INR [facility] Work Phone: Start: 02-11-2014 End: 10-27-2015 *Hepatic Function Panel *Hepatic Function Panel [facility] Work Phone: Start: 02-11-2014 End: 10-27-2015 Lipid panel [AGGREGATE] *Lipid Profile CC PCP [facility] Work Phone: Start: 01-29-2014 End: 03-29-2016 Follow Up Appt 3 months Follow Up Appt 3 months [facility] Work Phone: Start: 01-29-2014 End: 03-29-2016 [facility] Work Phone: Start: 11-15-2013 End: [...] 11-15-2013 *Hepatic Function Panel *Hepatic Function Panel [facility] Work Phone: Start: 09-21-2013 End: 09-21-2013 Follow Up Appt 1 year Follow Up Appt 1 year [facility] Work Phone: Start: 09-21-2013 End: 11-15-2013 Lipid panel [AGGREGATE] *Lipid Profile CC PCP [facility] Work Phone: Start: 09-21-2013 End: 11-15-2013 PFM PFM [facility] Work Phone: Start: 07-25-2013 End: 11-15-2013 Follow Up Appt 3 months Follow Up Appt 3 months [facility] Work Phone: Start: 07-25-2013 End: 11-15-2013 Pacer Clinic Pacer Clinic [facility] Work Phone: Start: 04-24-2013 End: 11-15-2013 Follow Up Appt 3 months Follow Up Appt 3 months [facility] Work Phone: Start: 04-24-2013 End: 11-15-2013 Pacer Clinic Pacer Clinic [facility] Work Phone: Start: 03-12-2013 End: 11-15-2013 *Hepatic Function Panel *Hepatic Function Panel [facility] Work Phone: Start: 03-12-2013 End: 03-13-2013 Echocardiography Echocardiogram (complete) [facility] Work Phone: Start: 03-12-2013 End: 11-15-2013 Follow Up Appt 6 months Follow Up Appt 6 months [facility] Work Phone: Start: 03-12-2013 End: 11-15-2013 Lipid panel [AGGREGATE] *Lipid Profile CC PCP [facility] Work Phone: Start: 03-12-2013 End: 11-15-2013 PFM PFM [facility] Work Phone: Start: 03-07-2013 End: 11-15-2013 *BMP *BMP [facility] Work Phone: Start: 03-07-2013 End: 03-12-2013 *CBC with Differential *CBC with Differential [facility] Work Phone: Start: 03-07-2013 End: 11-15-2013 *Hepatic Function Panel *Hepatic Function Panel [facility] Work Phone: Start: 03-07-2013 End: 11-15-2013 Lipid panel [AGGREGATE] *Lipid Profile [facility] Work Phone: Start: 03-07-2013 End: 03-12-2013 Magnesium *Magnesium [facility] Work Phone: Start: 02-03-2013 End: 11-15-2013 INR Coag RelTime (PPP) *PT/INR [facility] Work Phone: Start: 01-19-2013 End: 11-15-2013 Follow Up Appt 3 months Follow Up Appt 3 months [facility] Work Phone: Start: 01-19-2013 End: 11-15-2013 Pacer Clinic Pacer Clinic [facility] Work Phone: Start: 11-14-2012 End: 03-12-2013 INR Coag RelTime (PPP) *PT/INR - Standing Order [facility] Work Phone: Start: 09-27-2012 End: 11-15-2013 Follow Up Appt 3 months Follow Up Appt 3 months [facility] Work Phone: Start: 09-27-2012 End: 11-15-2013 Pacer Clinic Pacer Clinic [facility] Work Phone: Start: 08-30-2012 End: 08-30-2012 Follow Up Appt 6 months Follow Up Appt 6 months [facility] Work Phone: Start: 07-21-2012 End: 08-02-2012 INR Coag RelTime (PPP) *PT/INR [facility] Work Phone: Start: 07-19-2012 End: 08-02-2012 *BMP *BMP [facility] Work Phone: Start: 07-19-2012 End: 08-02-2012 *CBC with Differential *CBC with Differential [facility] Work Phone: Start: 07-19-2012 End: 08-02-2012 *Hepatic Function Panel *Hepatic Function Panel [facility] Work Phone: Start: 07-19-2012 End: 08-02-2012 Lipid panel [AGGREGATE] *Lipid Profile [facility] Work Phone: Start: 07-19-2012 End: 08-02-2012 Magnesium *Magnesium [facility] Work Phone: Start: 02-10-2012 End: 02-10-2012 Echocardiography Echocardiogram (complete) [facility] Work Phone: Start: 02-10-2012 End: 02-10-2012 Follow Up Appt 6 months Follow Up Appt 6 months [facility] Work Phone: Start: 01-12-2012 End: 01-13-2012 *Hepatic Function Panel *Hepatic Function Panel [facility] Work Phone: Start: 01-12-2012 End: 01-13-2012 Lipid panel [AGGREGATE] *Lipid Profile [facility] Work Phone: Start: 08-10-2011 End: 08-10-2011 Follow Up Appt 6 months Follow Up Appt 6 months [facility] Work Phone: Start: 05-28-2011 End: 07-12-2011 Ecg routine ecg w/least 12 lds w/i&r EKG (In office) [facility] Work Phone: Start: 05-28-2011 End: 05-28-2011 Follow Up Appt 3 months Follow Up Appt 3 months [facility] Work Phone: Start: 2009 COLOGUARD (FIT-DNA) COLOGUARD (FIT-DNA) [facility] Start: 2009 Colonoscopy COLONOSCOPY [facility] Start: 2009 COLORECTAL CANCER SCREENING COLORECTAL CANCER SCREENING [facility] Start: [address] COLONOGRAPHY [facility] Start: 2009 FECAL OCCULT BLOOD FECAL OCCULT BLOOD [facility] Start: 2009 SIGMOIDOSCOPY SIGMOIDOSCOPY [facility] Start: 1999 LIPID SCREEN LIPID SCREEN [facility] Start: 1983 Urine microalbumin profile DTAP,TDAP,TD (1 - Tdap) [facility] Start: 1982 HEPATITIS C SCREENING HEPATITIS C SCREENING [facility] Start: 1982 HIV SCREENING HIV SCREENING [facility] Start: 1976 Adult depression screening assessment DEPRESSION SCREENING [facility] Start: 1964 COVID-19 VACCINE (#1) COVID-19 VACCINE (#1) [facility] Start: 1964 HEPATITIS B (1 of 3 - 3-dose series) HEPATITIS B (1 of 3 - 3-dose series) [facility] Catheterization of l eft heart [facility] Patient Education [facility] Work Phone: Patient referral [facility] Work Phone: Payers Date Payer Category Payer Self-pay [id number] 2023 Self-pay [id number] 2021 Unknown ANTHEM BLUE ACCE SS PPO [id number] 2021-Present [phone] [facility] [id number] [place] [address] PPO [id number] 2017 Unknown ANTHEM BLUE ACCE SS PPO [id number] 2017-Present PPO [id number] 2014 Unknown ANTHEM BLUE CARD PPO [id number] 2014-2020 PPO [id number] 2014 Unknown SELF PAY INSURANCE [id number] 2014 Unknown [id number] 2012 Unknown COSMETIC SURGERY SELF PAY SELF PAY [id number] 2012-Present [phone] [place] [address] Indemnity [id number] Unknown [id number] Unknown [id number] Unknown [id number] [id number]2 Unknown [id number] [id number] Unknown [id number] 2.16.840.1.205964.3.579.2.462 Unknown [id number] 2.16.840.1.728225.3.579.2.462 Unknown [id number] 2.16.840.1.673769.3.579.2.462 Unknown [id number] 2.16.840.1.866799.3.579.2.462 Unknown [id number] 2.16.840.1.257381.3.579.2.462 Unknown [id number] 2.16.840.1.700719.3.579.2.462 Unknown [id number] 2.16.840.1.102627.3.579.2.462 Unknown [id number] 2.0.1.967839.3.579.2.462 Unknown [id number] 2.840.1.298454.3.579.2.462 Unknown [id number] 2.840.1.303761.3.579.2.462 Unknown [id number] [id number] Unknown [id number] Social History Date Type Detail Facility Start: 03-25-2016 End: 10-22-2024 Tobacco smoking status NHIS Never smoker [facility] Start: 03-25-2016 End: 09-17-2022 Tobacco use and exposure Never used [facility] Start: 03-25-2016 End: 09-27-2022 Alcohol intake Current drinker of alcohol (finding) [facility] Start: 03-29-2015 Alcohol Comment 1 A WEEK [facility] Start: 1965 Sex Assigned At Not on file [facility] Exposure to SARS-CoV -2 (event) Not sure [facility] Start: 10-02-2021 End: 03-18-2023 Tobacco smoking status [facility] Unknown if ever smoked [facility] Start: 04-16-2014 Occasional [facility] Start: 04-16-2014 None [facility] Start: 04-16-2014 Alone [facility] Start: 05-18-2019 Non-smoker [facility] Start: 1965 Sex Assigned At Male [facility] Medical Equipment Procedure Code Equipment Code Equipment Original Text Equipment Identifier Dates ([id number]) Cardiac resynchr onization therapy implantable pacemaker [id number] FDA Start: 10-01-2021 Mental Status Date Assessment Result Facility 10-02-2021 Cognitive function Level Of Cons ciousness Awake;Alert;Appropriate;Follow s Commands [facility] Work Phone: Clinical Notes 07-14-2002 to 10-16-2024 Note Date & Type Note Facility 10-16-2024 Radiology Diagnostic study note [facility] Imaging Services [address] [place] [address] Chest PA and Lateral MR#: [id number] Acct: [id number] Name: MATTHEW TRACY Rep #: [id number] : 1965 M 59 From: Dave Hunt MD PCP: Dr. Roni Rodarte MD Status: REG CLI Study:Chest PA and Lateral Date of Exam: 10/15/24 Exam# [id number] Ordering Dr: Zuleyma Norman WIRE INSPECTOR WIRE INSPECTOR-C PROCEDURE: CHEST PA AND LATERAL 10/15/2024 REASON FOR EXAM: CARDIAC CATH TECHNIQUE: Frontal and lateral views of the chest. COMPARISON: CT chest performed on 08/01/2018. FINDINGS: Pacemaker is seen overlying the left chest. There are median sternotomy wires present, likely from prior CABG surgery. The cardiac silhouette is within normal limits. No focal consolidation is seen within the lungs. There is no pneumothorax. There are no acute osseous abnormality is present. RAD/Chest PA and Lateral IMPRESSION: No focal infiltrate or consolidation is seen within the lungs. No pneumothorax. Reading Location: [id number] CC: WIRE INSPECTOR-C Zuleyma Norman; Dr. Roni Rodarte MD ~ Drawer In Hand: Signed [facility] 10-15-2024 Evaluation note Diagnosis Onset Date Resolution Abnormal echocardiogram acute October 15, 2024 3:00pm Cardiomyopathy in other diseases classified elsewhere chronic October 15 3:00pm H/O aortic root repair July, chronic October 15, 2024 3:00pm History of mechanical aortic valve replacement July, chronic October 15, 2024 3:00pm Presence of permanent cardiac pacemaker chronic October 15, 2024 3:00pm PSVT (paroxysmal supraventricular tachycardia) chronic October 15, 2024 3:00pm [facility] Work Phone: 1(140) 128-789904-07-2023 History of Present illness Narrative* Lito iLu DPM - 09/17/2022 2:12 PM EDT Chief Complaint: left foot pain HPI: This 57 year old male with PMH indicated below presents complaining of pain to medial left foot. Patient states pain became severe 2 to 3 weeks ago after he had been doing a lot of walking the day before in broken down shoes. He states the pain was 8/10 and his medial foot to ankle became red,swollen. States that he went to the urgent care and x-rays were taken, negative for fractures. He was given prednisone and antibiotics and since that time his pain is improved but still has some residual soreness rated 4/10. Pain is worsened by activity. Patient admits to obtaining new [employer] hiking boots and using OTC inserts with arch support. 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 Resp 18 Ht 177.8 cm (5' 10") Wt 90.3 kg (199 lb) BMI 28.55 kg/m Vascular: DP and PT pulses are palpable. CFT less than 3 seconds to all digits bilateral. Skin temperature is warm to warm from proximal to distal bilateral. Hair growth is noted. No edema noted. No varicosities noted. Neuro: Light touch intact bilateral. Protective sensation intact at all pedal sites via Raiford Marianne 5.07 monofilament bilateral. Proprioception intact at [...] with inversion of the calcaneus. There is tendernessto palpation of the navicular tuberosity and overlying [...] Impression: IMPRESSION: No acute radiographic abnormality identified. Drawer In Hand: DECLAN Transcribe Date/Time: Aug 17 2022 6:23P ... Last XR Foot - Impression Only XR FOOT GENERAL 3V AP/LAT/OBL LEFT Exam End: 08/17/2022 6:01 PM (Final result) Impression: IMPRESSION: No acute radiographic abnormality identified. Drawer In Hand: DECLAN Transcribe Date/Time: Aug 17 2022 6:23P ... ASSESSMENT: This 57 year old male patient presents today with insertional posterior tibial tendinitis Plan: - A comprehensive history and physical examination were preformed. The patient was educated on clinical and radiographic findings, diagnosis and treatment plans. Patient state that he understands allthat has been explained and all questions were [...] unless otherwise noted. Lito Liu DPM, FACFAS * Bisi Kim MA - 09/17/2022 1:58 PM EDT REVIEW OF SYSTEMS: GENERAL: Well developed, well [...] disorders. 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 Nonsustained ventricular tachycardia acute Wide-complex tachycardia acu te Cardiomyopathy in other dise ases classified elsewhere chronic 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 Cardiomyopathy in other dise ases classified elsewhere chronic History of mechanical aortic valve replacement 2002 chronic Presence of permanent cardiac pacemaker chronic PSVT (paroxysmal supraventricular tachycardia) chronic 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 [facility] Work Phone: Evaluation note* Diagnosis Onset Date Resolution Status Nonsustained ventricular tachycardia acute Cardiomyopathy chronic 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 Nonsustained ventricular tachycardia acute Wide-complex tachycardia acu te Cardiomyopathy in other dise ases classified elsewhere chronic 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 Cardiomyopathy in other dise ases classified elsewhere chronic History of mechanical aortic valve replacement 2002 chronic Presence of permanent cardiac pacemaker chronic PSVT (paroxysmal supraventricular tachycardia) chronic 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 Nonsustained ventricular tachycardia acute Wide-complex tachycardia acu te Cardiomyopathy chronic Cardiomyopathy in other dise ases classified elsewhere chronic 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 [facility] Work Phone: Evaluation note* Diagnosis Onset Date Resolution Status Nonsustained ventricular tachycardia acute Wide-complex tachycardia acu te Cardiomyopathy chronic Cardiomyopathy in other dise ases classified elsewhere chronic 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 Cardiomyopathy in other dise ases classified elsewhere chronic History of mechanical aortic valve replacement 2002 chronic Presence of permanent cardiac pacemaker chronic PSVT (paroxysmal supraventricular tachycardia) chronic 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 Nonsustained ventricular tachycardia acute Wide-complex tachycardia acu te Cardiomyopathy chronic 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 [facility] Work Phone: Evaluation note* Diagnosis Posterior tibial tendinitis of left leg- Primary Tibialis tendinitis Pes planus of both feet [facility] Diagnosis Onset Date Resolution Status Cardiomyopathy chronic Cardiomyopathy in other diseases classified elsewhere chronic 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 Work Phone: Summary Purpose Family History No Family History Records Found Relationship Condition Age at Onset Recorded Date/T jolene father Hypertension Unknown Advance Directives No Advanced Directives Records FoundDocuments on File Type Date Recorded Patient Chief General [facility] Expl anation Advance Directive(s) 08/23/2020 9:58 AM Advance Directive Response Recorded Date/ Time Advance Directives No October 01 10:03am Living Will No October 02, 2021 10:14am Power of Manager Law No October 02 10:14am Advance Directive Response Recorded Date/ Time Advance Directives No October 01 9:03am Living Will No October 02, 2021 9:14am Power of Manager Law No October 02 9:14am Advance Directive Response Recorded Date/ Time Living Will No October 02, 2021 10:14am Do you have a Healthcare Power of Manager Law? No October 02, 2021 10:14am Advance Directives No October 01 10:03am Advance Directive Response Recorded Date/ Time Living Will No October 02, 2021 10:14am Do you have a Healthcare Pow er of Manager Law? No October 02, 2021 10:14am Advance Directives on File No October 112024 10:51am Living Will Yes October 22, 2024 1 0:51am Do you have a Healthcare Pow er of Manager Law? Yes October 22, 2024 10:51am Name of Medical Power of Manager Law Stepahnie Abe avila October 22, 2024 10:51am Advance Directives Yes October 22 10:51am Chief Complaint and Reason for Visit Chief Complaint MIND READER-P f/u lucain g LUCRECIA Update H&P for MIND READER-P generator/HILARY@14:30 change BATTERY DEPLETION MIND READER-P 3LEADS BATTERY DEPLETION MIND READER-P 3LEADS bleeding Reason for Visit Nonsustained ventric ular tachycardia Cardiomyopathy Conduction disorder of the heart Presence of permanent cardiac pacemaker Third degree atrioventricular block determined by electrocardiography Nonsustained ventricular tachycardia Wide-complex tachycardia Cardiomyopathy in other diseases classified elsewhere Third degree atrioventricular block determined by electrocardiography Cardiomyopathy in other diseases classified elsewhere History of mechanical aortic valve replacement Presence of permanent cardiac pacemaker PSVT (paroxysmal supraventricular tachycardia) Third degree atrioventricular block determined by electrocardiography Chief Complaint MIND READER-P f/u maday kevin LUCRECIA Update H&P for MIND READER-P generator/HILARY@14:30 change BATTERY DEPLETION MIND READER-P 3LEADS BATTERY DEPLETION MIND READER-P 3LEADS bleeding 2 wks s/p MIND READER-P generator change EVAL VALVE REPLACEMENT *MOODISPAW* Reason for Visit Nonsustained ventric ular tachycardia Cardiomyopathy Conduction disorder of the heart Presence of permanent cardiac pacemaker Third degree atrioventricular block determined by electrocardiography Nonsustained ventricular tachycardia Wide-complex tachycardia Cardiomyopathy in other diseases classified elsewhere Third degree atrioventricular block determined by electrocardiography Cardiomyopathy in other diseases classified elsewhere History of mechanical aortic valve replacement Presence of permanent cardiac pacemaker PSVT (paroxysmal supraventricular tachycardia) Third degree atrioventricular block determined by electrocardiography Nonsustained ventricular tachycardia Wide-complex tachycardia Cardiomyopathy Cardiomyopathy in other diseases classified elsewhere Conduction disorder of the heart Presence of permanent cardiac pacemaker Third degree atrioventricular block determined by electrocardiography Chief Complaint 2 wks s/p MIND READER-P gene rator change EVAL VALVE REPLACEMENT *MOODISPAW* 6 M FU 3 mos remote MIND READER-P f/u Reason for Visit Nonsustained ventric ular tachycardia Wide-complex tachycardia Cardiomyopathy Cardiomyopathy in other diseases classified elsewhere Conduction disorder of the heart Presence of permanent cardiac pacemaker Third degree atrioventricular block determined by electrocardiography Cardiomyopathy in other diseases classified elsewhere History of mechanical aortic valve replacement Presence of permanent cardiac pacemaker PSVT (paroxysmal supraventricular tachycardia) Third degree atrioventricular block determined by electrocardiography Nonsustained ventricular tachycardia Wide-complex tachycardia Cardiomyopathy Presence of permanent cardiac pacemaker Third degree atrioventricular block determined by electrocardiography Chief Complaint 3 mos remote MIND READER-P f /u 3 mos remote MIND READER-P f/u Reason for Visit Cardiomyopathy Cardiomyopathy in other diseases classified elsewhere Conduction disorder of the heart Presence of permanent cardiac pacemaker Third degree atrioventricular block determined by electrocardiography Chief Complaint 3 mos remote MIND READER-P f /u 3 mos remote MIND READER-P f/u Pain Reason for Visit Cardiomyopathy Cardiomyopathy in other diseases classified elsewhere Conduction disorder of the heart Presence of permanent cardiac pacemaker Third degree atrioventricular block determined by electrocardiography Chief Complaint Pain 1 Y FU Elevated prostate specific antigen [PSA] Reason for Visit Cardiomyopathy in ot her diseases classified elsewhere H/O aortic root repair History of mechanical aortic valve replacement Presence of permanent cardiac pacemaker PSVT (paroxysmal supraventricular tachycardia) Chief Complaint Pain Pacer Check Remote 1 Y FU Elevated prostate specific antigen [PSA] Reason for Visit Cardiomyopathy in ot her diseases classified elsewhere H/O aortic root repair History of mechanical aortic valve replacement Presence of permanent cardiac pacemaker PSVT (paroxysmal supraventricular tachycardia) Chief Complaint Pacer Check Remote Pacer Check Remote EORDER Chief Complaint Admit Date Pacer Check Remote August 23, 2024 6:3 4pm VALVE REPLACEMENT September 28, 2024 7:5 4am SEE NOTES October 15, 2024 3:00pm CHEST XRAY/ EORDER October 15, 2024 4:05pm Reason for Visit Admit Date Abnormal echocardiogram October 15, 2024 3: 00pm Cardiomyopathy in other diseases classif ied elsewhere October 15, 2024 3:00pm H/O aortic root repair October 15, 2024 3:0 0pm History of mechanical aortic valve repla cement October 15, 2024 3:00pm Presence of permanent cardiac pacemaker October 15, 2024 3:00pm PSVT (paroxysmal supraventricular tachyc ardia) October 15, 2024 3:00pm Chief Complaint Admit Date Pacer Check Remote August 23, 2024 6:3 4pm VALVE REPLACEMENT September 28, 2024 7:5 4am SEE NOTES October 15, 2024 3:00pm CHEST XRAY/ EORDER October 15, 2024 4:05pm ABN ECHO October 22, 2024 10:27 am Chief Complaint Admit Date Pacer Check Remote August 23, 2024 6:3 4pm VALVE REPLACEMENT September 28, 2024 7:5 4am SEE NOTES October 15, 2024 3:00pm CHEST XRAY/ EORDER October 15, 2024 4:05pm ABN ECHO October 22, 2024 10:27 am Pacer Check Remote November 22, 2024 10:3 3pm Additional Source Comments (unrecognized sect ion and content) No Status Records FoundNo Status Records FoundNo Status Records Found INFORMATION SOURCE (unrecogn ized section and content) DATE CREATED AUTHOR 08/31/2020 [facility] DATE CREATED AUTHOR AUTHOR'S ORGANIZ ATION 05/28/2024 [facility] DATE CREATED AUTHOR AUTHOR'S ORGANIZ ATION 12/08/2024 [facility] Source Comments (unrecognize d section and content) In the event this informatio n is protected by the Federal Confidentiality of Alcohol and Drug Abuse Patient Records regulations: The Federal rules restrict any use of the information to criminally investigate or prosecute any alcohol or drug abuse patient.[facility] the event this information is protected by the Federal Confidentiality of Alcohol and Drug Abuse Patient Records regulations: The Federal rules restrict any use of the information to criminally investigate or prosecute any alcohol or drug abuse patient.[facility] Reason for Visit (unrecogniz ed section and content) Reason Comments Refill Request Reason Comments New Goals (unrecognized section and content) Goals may be documented in a n alternate sectionGoals may be documented in an alternate sectionGoals may be documented in an alternate sectionGoals may be documented in an alternate sectionGoals may be documented in an alternate sectionGoals may be documented in an alternate sectionGoals may be documented in an alternate sectionGoals may be documented in an alternate sectionGoals may be documented in an alternate sectionGoals may be documented in an alternate sectionGoals may be documented in an alternate sectionGoals may be documented in an alternate sectionGoals may be documented in an alternate section Care Teams (unrecognized sec tion and content) Shank Skinner Relationship Specialty Start Date End Date Roni Rodarte MD PCP - General 03/01/08 Team Status: Active Member Role Status Dates Dr. Roni Rodarte MD Family Provider Active Dr. Roni Rodarte MD Primary Care Provider Active Team Status: Inactive Member Role Status Dates Dr. Roni Rodarte MD Primary Care Provider, Referring P rovider Active Asya Tanner Attending Provider Active Team Status: Active Member Role Status Dates Dr. Roni Rodarte MD Primary Care Provider Active Dr. Brian Virk MD Attending Provider, Referring Pro vider Active Team Status: Inactive Member Role Status Dates Dr. Roni Rodarte MD Primary Care Provide r, Attending Provider, Referring Provider Active Dr. Elba Meyer DO Other Provider Active Team Status: Inactive Member Role Status Dates Dr. Roni Rodarte MD Primary Care Provider, Attending P rovider Active Team Status: Inactive Member Role Status Dates Dr. Roni Rodarte MD Primary Care Provider, Referring P rovider Active Jeni Pina PA, PA Attending Provider Active Team Status: Inactive Member Role Status Dates Dr. Roni Rodarte MD Primary Care Provide r, Attending Provider, Referring Provider Active Team Status: Inactive Member Role Status Dates Dr. Roni Rodarte MD Primary Care Provider Active Yamilet Villeda Attending Provider, Referring Provide r Active Team Status: Inactive Member Role Status Dates Dr. Roni Rodarte MD Primary Care Provider Active Dr. Brian Virk MD Attending Provider, Referring Pro vider Active Team Status: Inactive Member Role Status Dates Dr. Roni Rodarte MD Primary Care Provider Active Dr. Omer Khanna MD Attending Provider, Referr ing Provider Active Team Status: Inactive Member Role Status Dates Dr. Roni Rodarte MD Primary Care Provider Active Dr. Brian Virk MD Attending Provider Active Team Status: Inactive Member Role Status Dates Dr. Roni Rodarte MD Primary Care Provider Active Lorenzo Abad WIRE INSPECTOR, WIRE INSPECTOR-C Attending Provider, Referring Pro vider Active Team Status: Active Member Role Status Dates Dr. Roni Rodarte MD Primary Care Provider Active Team Status: Inactive Member Role Status Dates Dr. Roni Rodarte MD Primary Care Provider Active Start: August 23, 2024 End: August 23, 2024 Dr. Brian Virk MD Attending Provider Active S tart: August 23, 2024 End: August 23, 2024 Dr. Brian Virk MD Referring Provider Active S tart: August 23, 2024 End: August 23, 2024 Team Status: Inactive Member Role Status Dates Dr. Roni Rodarte MD Primary Care Provider Active Start: September 28, 2024 End: September 28, 2024 Jeni GRACIA PA Attending Provider Active Start: September 28, 2024 End: September 28, 2024 Jeni GRACIA, PA Referring Provider Active Start: September 28, 2024 End: September 28, 2024 Team Status: Active Member Role Status Dates Dr. Roni Rodarte MD Primary Care Provider Active Start: September 28, 2024 Dr. Brian Virk MD Attending Provider Active S tart: September 28, 2024 Team Status: Inactive Member Role Status Dates Dr. Roni Rodarte MD Primary Care Provider Active Start: October 15, 2024 End: October 15, 2024 Dr. Roni Rodarte MD Referring Provider Active St art: October 15, 2024 End: October 15, 2024 Zuleyma Norman WIRE INSPECTOR, WIRE INSPECTOR-C Attending Provider Active Start: October 15, 2024 End: October 15, 2024 Team Status: Inactive Member Role Status Dates Dr. Roni Rodarte MD Primary Care Provider Active Start: October 15, 2024 End: October 15, 2024 Zuleyma Norman WIRE INSPECTOR, WIRE INSPECTOR-C Attending Provider Active Start: October 15, 2024 End: October 15, 2024 Zuleyma Norman WIRE INSPECTOR, WIRE INSPECTOR-C Referring Provider Active Start: October 15, 2024 End: October 15, 2024 Team Status: Inactive Member Role Status Dates Dr. Roni Rodarte MD Primary Care Provider Active Start: October 22, 2024 End: October 22, 2024 Dr. Brian Virk MD Attending Provider Active S tart: October 22, 2024 End: October 22, 2024 Dr. Brian Virk MD Referring Provider Active S tart: October 22, 2024 End: October 22, 2024 Team Status: Inactive Member Role Status Dates Dr. Roni Rodarte MD Primary Care Provider Active Start: November 22, 2024 End: November 22, 2024 Dr. Brian Virk MD Attending Provider Active S tart: November 22, 2024 End: November 22, 2024 FOR RECORDS PERTAINING TO PATIENTS WHO ARE [...] BE BASED ON THE PRIMARY CLINICAL RECORDS. [facility]. provides no warranty or guarantee of the accuracy or completeness of information in this document.
[2025-01-05 12:54] LABS: PSA,Total- Diagnostic 4.90 ng/mL (0.00-4.00)
[2025-01-10 19:17] LABS: AST(SGOT) 32 U/L (<=37); Alanine Aminotransfer ALT/SGPT 17 U/L (<=46); Albumin, Serum 4.2 g/dL (3.4-4.8); Alkaline Phosphatase 94 U/L (40-129); Anion Gap 13 (5-15); BUN 21 mg/dL (4-19); BUN/Creat Ratio 16.1 RATIO (10-20); Calcium,Total 9.5 mg/dL (7.6-11.0); Carbon Dioxide 21.3 mmol/L (21.0-32.0); Chloride 107 mmol/L (98-108); Ferritin 42 ng/mL (37-417); Free T3 2.4 pg/mL (2.18-3.98); Globulin 3.0 g/dL (2.2-4.2); Glucose 75 mg/dL (70-99); Iron 131 ug/dL (65-175); Iron Binding Capacity,Total 296 ug/dL (250-450); Iron Binding Capacity,Unsat 165 ug/dL (228-428); Potassium 4.8 mmol/L (3.3-5.1)
== END | disposition home or self-care (01) ==
LOC: LAB 11:16
PROVIDERS: PCP Family Medicine; Referring Provider Nurse Practitioner; Visit Provider Nurse Practitioner
DX: R97.20 Elevated prostate specific antigen [PSA] (principal)
CPT/HCPCS: 36415; 80053; 82728; 83540; 83550; 84153; 84439; 84443; 84481

== ENCOUNTER → 2025-01-10 | Outpatient (CLI) | payer BC, SELFPAY ==
[2025-01-10 18:04] LABS: Hematocrit 46.2 % (40-54); Hemoglobin 15.6 g/dL (13.0-16.5); Immature Granulocytes Count 0.020 X10^3/uL (0.0-0.0); Mean Corp Hgb Conc 33.8 g/dL (32-36); Mean Corpuscular Volume 92.8 fL (80-94); Mean Platelet Vol. 10.3 fl (6.2-12.0); NRBC Flagged by Analyzer 0 % (0-5); Platelet Count 182 K/mm3 (150-450); RBC Distribution Width CV 16.0 % (11.6-14.6); RBC Distribution Width SD 55.0 fl (35.1-43.9); Red Blood Count 4.98 M/mm3 (4.6-6.2); White Blood Count 5.8 K/mm3 (4.4-11.0)
== END | disposition home or self-care (01) ==
LOC: MFPLAB 16:36
PROVIDERS: PCP Family Medicine; Referring Provider Family Medicine; Visit Provider Family Medicine
DX: E03.9 Hypothyroidism, unspecified (principal)
CPT/HCPCS: 36415; 85025

== ENCOUNTER → 2025-01-22 | Outpatient (CLI) | payer BC, SELFPAY ==
--- NOTE | 2025-01-22 14:57 | ECHOLC_ITS ---
Reason For Study Reason For Study: CM Procedure This was a limited 2D transthoracic echocardiogram. Contrast injection was performed. Exam performed in department. Left Ventricle Normal LV size. The left ventricular ejection fraction is 20 %. Severe segmental systolic dysfunction (see wall motion). [place] : Akinetic. Septal [place] : Akinetic. Lateral [place] : Akinetic. Infero-Basal: Akinetic. Mid-Inferior: Akinetic. The rest of the wall segments are hypokinetic. Right Ventricle Normal RV size. ICD or pacer leads identified within the right ventricle. Normal systolic function. Mitral Valve There is mild to moderate mitral annular calcification. Tricuspid Valve Normal tricuspid valve. Mild tricuspid valve insufficiency. Aortic Valve Trisinus/trileaflet aortic valve. Mild focal aortic valve calcification. Peak aortic valve gradient 14 mmHg. Mean aortic valve gradient 7 mmHg. Medication Diluted definity 2ml given slow IV push to enhance endocardial definition. MMode/2D Measurements & Calculations LVIDd: 5.5 cm IVSd: 1.2 cm LVIDs: 4.7 cm LVPWd: 1.2 cm LVAd ap4: 51.6 cm2 FS: 13.1 % LVLd ap4: 8.8 cm EDV(MOD-sp4): 237.1 ml EDV(sp4-el): 255.7 ml LVAs ap4: 44.8 cm2 LVLs ap4: 8.5 cm ESV(MOD-sp4): 186.0 ml ESV(sp4-el): 199.8 ml EF(MOD-sp4): 21.5 % EF(sp4-el): 21.9 % SV(MOD-sp4): 51.0 ml SV(MOD-sp2): 28.0 ml LVAd ap2: 40.9 cm2 LVLd ap2: 7.9 cm SI(MOD-sp4): 25.8 ml/m2 SI(MOD-sp2): 14.2 ml/m2 EDV(MOD-sp2): 171.9 ml EDV(sp2-el): 179.1 ml LVAs ap2: 38.6 cm2 LVLs ap2: 8.4 cm ESV(MOD-sp2): 143.9 ml ESV(sp2-el): 151.3 ml EF(MOD-sp2): 16.3 % SV(sp4-el): 55.9 ml Doppler Measurements & Calculations Ao V2 max: 185.9 cm/sec TR max sowmya: 224.6 cm/sec Ao max P.8 mmHg TR max P.2 mmHg Ao V2 mean: 120.5 cm/sec Ao mean P.0 mmHg Ao V2 VTI: 36.4 cm ECHO/Echo Limited w/Contrast Interpretation Summary Normal LV size. The left ventricular ejection fraction is 20 %. Severe segmental systolic dysfunction (see wall motion). Mild focal aortic valve calcification. Mild tricuspid valve insufficiency. Contrast injection was performed. The global longitudinal strain = -8% (abnorma l). Ordering Physician: Zuleyma Norman Referring Physician: Walter Rodarte Performed By: Elayne Abad RDCS, RVT
== END | disposition home or self-care (01) ==
LOC: CVS 14:57
PROVIDERS: PCP Family Medicine; Referring Provider Nurse Practitioner Gerontology; Visit Provider Nurse Practitioner Gerontology
DX: I42.8 Other cardiomyopathies (principal)
CPT/HCPCS: 93308; Q9957; A4216; C8924